=== PATIENT | female | born 1955 | race Caucasian/White ===

== ENCOUNTER 2018-10-05 14:56 | Day surgery (SDC) | payer OTHER ==
[2018-10-05 16:50] LABS: BF Color Yellow; BF RBC Count - Manual 2900 /cumm; Body Fluid Source PLEURAL FLUID; Clarity Hazy (Clear); Tube # EDTA; WBC/NonHematic-Auto 1308 /cumm
[2018-10-05 16:57] LABS: Pleural Fluid, Protein 4.6 g/dL
--- NOTE | 2018-10-05 17:08 | HP ---
CONSULTING PHYSICIAN: Dr. Pino. REASON FOR EVALUATION: Left pleural effusion. HISTORY OF PRESENT ILLNESS: Ms. Barrientos is a pleasant 63-year-old from [place], who has lived in this country for over 20 years. She developed a left upper lobe pneumonia recently. She was treated initially with azithromycin and then with 10 days of Levaquin. She actually feels better, but on followup today, she had an x-ray done, which showed a persistent left upper lobe infiltrate along with a new left pleural effusion, which was confirmed by CT. She was sent over here for a diagnostic and therapeutic left-sided thoracentesis. PAST MEDICAL HISTORY: Remarkable for hyperlipidemia, hypertension, and anxiety. PAST SURGICAL HISTORY: . SOCIAL HISTORY: Nonsmoker. 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 ALLERGIES: MULTIPLE. THESE WERE LISTED ON HER CHART, INCLUDE PENICILLIN, SULFA, TETRACYCLINE, IBUPROFEN, AND CAFFEINE. MEDICATIONS: 1. Metoprolol. 2. Crestor. 3. Coenzyme Q10 when she takes the Crestor. FAMILY MEDICAL HISTORY: Unremarkable for tuberculosis. REVIEW OF SYSTEMS: Twelve-point review of systems is remarkable for some chest pain and cough. PHYSICAL EXAMINATION: VITAL SIGNS: Pulse 110, respirations 18, blood pressure 110/70, respiratory rate 18, and O2 sat 99% on room air. GENERAL: She is awake and alert, in no distress. HEENT: Unremarkable without obvious lesions. NECK: No adenopathy, JVD, or bruits. LUNGS: She has diminished breath sounds in the left base about one-fourth the way up. Right side is clear. CARDIAC: S1 and S2. Slightly tachycardic. No murmur. ABDOMEN: Soft, nontender. EXTREMITIES: No edema. DIAGNOSTIC DATA: I reviewed her CT and chest x-ray from the physician center. She had a small moderate-size left pleural effusion. ASSESSMENT: 1. Left parapneumonic pleural effusion. 2. Pneumonia. PLAN: 1. Diagnostic and therapeutic left thoracentesis. See separate operative note. 2. After the thoracentesis showed parapneumonic fluid, I decided to treat her with 7 more days of Levaquin. This was mainly because she is allergic to just about every other antibiotic class. 3. Follow up in the office in 1 month. Repeat chest x-ray. Job ID: [id number]
[2018-10-05 17:09] LABS: BF Segmented Neutrophils 2 %; Cell Count Non Hematic 45 %; Eosinophils 19 %; Lymphocytes 33 %
--- NOTE | 2018-10-05 17:18 | OP ---
DATE OF PROCEDURE: 10/05/2018 PROCEDURE: Left thoracentesis. PREOPERATIVE DIAGNOSIS: Left pleural effusion. POSTOPERATIVE DIAGNOSIS: Left parapneumonic pleural effusion. ANESTHESIA: 1% lidocaine without epinephrine. DESCRIPTION OF PROCEDURE: Informed consent was obtained from the patient. She understood the risks involved, including bleeding, infection next to lung puncture and agreed to proceed. She was placed in the sitting position. The best entry site was confirmed by ultrasound. Chlorhexidine was used to anesthetize the entry point at the left scapular midline approximately 5th and 6th interspace posteriorly. 1% lidocaine was used to numb the entry site. A Suda-S-Dbezsfsc catheter was inserted in the pleural space. Approximately 700 mL of stephanie/brown pleural fluid was removed and sent for appropriate studies. She tolerated the procedure well. Postoperative x-ray showed resolution of pleural effusion. Job ID: [id number]
--- NOTE | 2018-10-05 17:39 | RAD ---
FRONTAL VIEW CHEST: 10/05/18 INDICATION: Recent thoracentesis. History of pneumonia, pleural effusion. Reference is made to a radiograph from earlier same date. Status post thoracentesis. FINDINGS: There has been interval reduced volume of left pleural fluid status post thoracentesis. There is a sm all volume of pleural based air demonstrated overlying the left chest without a significant postproce dure pneumothorax. Prominent opacity at the left apex does persist. There is mild residual pleural ba sed density at the inferior left chest. No shift of midline mediastinal structures. Osseous structure s are intact. IMPRESSION: Status post left thoracentesis. There is mild pleural air, postprocedural in etiology, without a sign ificant pneumothorax. Prominent left upper lung zone opacity does persist. Mild residual left basilar density. POS: [facility]
== END 2018-10-05 16:15 | disposition home or self-care (01) ==
LOC: SDC/OP 14:56
PROVIDERS: ATTEND Internal Medicine Critical Care Medicine
PROC: 0W9B3ZZ Drainage of Left Pleural Cavity, Percutaneous Approach (ICD-10-PCS; principal; 2018-10-05)
DX: C80.1 Malignant (primary) neoplasm, unspecified (principal); J91.0 Malignant pleural effusion; J18.9 Pneumonia, unspecified organism; E78.5 Hyperlipidemia, unspecified; F41.9 Anxiety disorder, unspecified; I10 Essential (primary) hypertension; Z79.899 Other long term (current) drug therapy; Z88.0 Allergy status to penicillin; Z88.1 Allergy status to other antibiotic agents; Z88.2 Allergy status to sulfonamides; Z88.8 Allergy status to other drugs, medicaments and biological substances
CPT/HCPCS: 32554; 71045; 82150; 82945; 83615; 83986; 84157; 84478; 85060; 87070; 87116; 87205; 87206; 88112; 88305; 88341; 88342; 89051

== ENCOUNTER 2018-10-17 08:00 | Outpatient (CLI) | payer OTHER ==
[2018-10-17] MEDS ORDERED: Iopamidol 370 76% 100 ML VIAL ONE (10:19)
--- NOTE | 2018-10-17 10:20 | CT ---
CT CHEST WITH CONTRAST CT ABDOMEN WITH CONTRAST CT PELVIS WITH CONTRAST: Date: 10/17/18 HISTORY: Lung cancer. Staging. COMPARISON: Single radiograph of chest post thoracentesis 10/05/18. No other imaging available for review. FINDINGS: There is a very large left-sided layering pleural effusion. There is abnormal enhancement of the seble etal pleura, some of which is nodular. There is volume loss of the left upper lobe. No definitive mas s is appreciated, although infiltrative mass is suspected in the left suprahilar region. Majority of consolidation in the left upper lobe is felt to be postobstructive pneumonitis. There is abnormal thi ckening of the left upper lobe interstitium, which is concerning for lymphangitic spread of tumor. Th ere is confluence of left cardiophrenic adenopathy and extending along the left heart border and ante rior mediastinum. The largest lymph node measures 12.0 mm in short axis, coronal image 40. There is a lso nodular studding along the left-sided pericardial fat. This is all concerning for tumor involveme nt. No supraclavicular adenopathy. Small right paratracheal lymph nodes measure up to 5.0 mm in short axis. Small 2.0 mm nodule is present in right lower lobe, posterior segment, axial image 52. There i s also a 3.0 mm nodule right lower lobe posterior segment, coronal image 85. There is mild interstitial thickening along the hilum of the right lower lobe, as well as some early alveolar ground-glass suggesting pulmonary edema. No pneumothorax. Clavicles are intact. Sternum and manubrium are intact. Relatively subacute right lateral 6th rib fracture with one-half shaft width displacement. There is a subtle submillimeter hypodensity hepatic segment VII, axial image 63, measuring 7.0 mm, wh ich may reflect a metastatic focus. There are numerous smaller more hypodense foci throughout the avtar er, predominantly in hepatic segments II and VII, as well as V and , which are all sub-3.0 mm and t oo small to characterize. Hypodensity near the falciform ligament, hepatic segment IV-B, may reflect focal fat. Spleen is unremarkable. The adrenal glands are without metastatic foci. The aortoiliac contour is non aneurysmal. No dilated loops of large or small bowel. The appendix is visualized and is normal. No retroperitoneal or periaortic adenopathy in the abdomen or pelvis. Kidneys are unremarkable. No ab normal renal enhancing mass. IMPRESSION: 1. Poorly defined infiltrative type left suprahilar mass, which is not well seen on this CT examinat ion. There is extensive left upper lobe postobstructive pneumonitis, as well as likely lymphangitic s pread of tumor. There is also a very large left layering pleural effusion with abnormal nodular enhan cement of the visceral pleura suggesting metastatic malignant pleural involvement. 2. No right-sided mediastinal or supraclavicular adenopathy appreciated. 3. Abnormal left axillary lymph node, which is retropectoral, measuring 11.0 mm, axial image 15, asy mmetric to the right, may reflect metastatic disease. 4 Single, 7.0 mm, vague hypodensity, hepatic segment VIII, may reflect another focus of metastatic d isease. 5. Confluent left pericardiophrenic adenopathy likely metastatic. 6. Subacute minimally displaced right lateral 6th rib fracture. 7. Single focal area of osteolysis right 6th vertebral body extending to the inferior end plate with likely a subacute pathologic fracture through the inferior end plate. 8. Focal area of osteolysis of the right 11th vertebral body, likely a focal area of osseous metasta tic disease. 9. Innumerable smaller foci of osteolysis which also may reflect early metastatic disease, for examp le, in the T3 vertebral body, axial image 11, and possibly the left posterior 8th rib, axial image 35 . CODE: T POS: [facility]
--- NOTE | 2018-10-17 11:41 | MRI ---
MRI BRAIN WITH AND WITHOUT CONTRAST: 10/17/2018 HISTORY: A 63-year-old female with lung cancer. Evaluate for brain metastasis. C34.12. COMPARISON: None. TECHNIQUE: Multiple sequences obtained in axial, sagittal, and coronal planes; pre and post IV injection of gado linium-based contrast agent: MultiHance 12 mL. FINDINGS: There are tiny, enhancing nodules, on the order of 2 to 4 mm each (all best visualized on the T1 MPR thin-slice axial images, series 10), in the following locations: Two in the right cerebellar hemisphere (image 31 of 192, series 10); left centrum semiovale (image 12 2 of 192); left upper parietal dalton-white junction (135 of 192); right superior frontal gyrus dalton-wh ite junction (138 of 192). The ventricles are normal in size and configuration. No mass effect or midline shift. No extraaxial fluid collection. Punctate focus of hyperintensity on the DWI at the right centrum semiovale, uncer tain whether or not actual restricted diffusion. No other areas of restricted diffusion. No evidenc e of recent intraaxial hemorrhage. IMPRESSION: At least five tiny, intraaxial metastatic lesions. ABDON Rodas POS: [facility]
== END 2018-10-17 08:01 | disposition home or self-care (01) ==
LOC: CT 08:00
PROVIDERS: ATTEND Internal Medicine Hematology & Oncology
DX: C34.12 Malignant neoplasm of upper lobe, left bronchus or lung (principal); R59.0 Localized enlarged lymph nodes; S22.31XA Fracture of one rib, right side, initial encounter for closed fracture; J18.9 Pneumonia, unspecified organism; M89.58 Osteolysis, other site
CPT/HCPCS: 70553; 71260; 74177; Q9967

== ENCOUNTER 2018-10-19 07:37 | Outpatient (CLI) | payer OTHER ==
--- NOTE | 2018-10-19 11:17 | PET ---
RADIONUCLIDE PET SCAN WITH CT ATTENUATION CORRECTION: HISTORY: Left upper lobe lung cancer. Metastatic disease. Initial staging. FINDINGS: Physiologic uptake of radiotracer throughout the enteric system and along each urinary tract. The lar ge left upper lobe mass shows a maximum SUV of 15.1. Along the anterior left costophrenic angle, ther e is thickening of the pleura with maximum SUV of 7.9. Abnormal lymph nodes are as follows: LOCATION MAXIMUM SUV Left supraclavicular 5.0 Left prepectoral 8.5 Right infrahilar 5.2 . Spinal lesions with hypermetabolic activity are as follows: T6 vertebral body 5.2 T10 spinous process 5.0 T11 vertebral body 5.9 Other bony abnormalities are as follows: Right 6th rib 4.1 Right iliac bone 4.9 Left iliac bone 11.2 Right sacrum 6.3 IMPRESSION: Left upper lobe lung cancer with hypermetabolic metastases involving thoracic adenopathy, the spine, and appendicular skeleton as detailed above. POS: [facility]
== END 2018-10-19 07:38 | disposition home or self-care (01) ==
LOC: PET 07:37
PROVIDERS: ATTEND Internal Medicine Hematology & Oncology
DX: C34.12 Malignant neoplasm of upper lobe, left bronchus or lung (principal); R59.0 Localized enlarged lymph nodes
CPT/HCPCS: 78815; A9552

== ENCOUNTER 2018-10-30 13:47 | Outpatient (CLI) | payer OTHER | END 2018-10-30 13:48 | disposition home or self-care (01) | LOC: ULT 13:47 | PROVIDERS: ATTEND Internal Medicine Hematology & Oncology | DX: Z51.11 Encounter for antineoplastic chemotherapy (principal); C34.12 Malignant neoplasm of upper lobe, left bronchus or lung; I08.1 Rheumatic disorders of both mitral and tricuspid valves; J90 Pleural effusion, not elsewhere classified | CPT/HCPCS: 93306 ==

== ENCOUNTER 2018-10-30 15:21 | Outpatient (CLI) | payer OTHER ==
--- NOTE | 2018-10-30 16:08 | RAD ---
CHEST TWO VIEWS: History: Dyspnea. Comparison: CT chest, abdomen, and pelvis 10-17-18 FINDINGS: Large layering left pleural effusion is similar. Left upper lobe mass is similar. Right lung is relat ively clear. IMPRESSION: Similar large layering left pleural effusion and left upper lobe mass. POS: [facility]
== END 2018-10-30 15:22 | disposition home or self-care (01) ==
LOC: RAD 15:21
PROVIDERS: ATTEND Internal Medicine Critical Care Medicine
DX: R06.00 Dyspnea, unspecified (principal); J90 Pleural effusion, not elsewhere classified; R91.8 Other nonspecific abnormal finding of lung field
CPT/HCPCS: 71046

== ENCOUNTER → 2018-10-31 | Day surgery (SDC) | payer OTHER ==
[~2018-10-31] MED LIST: Lidocaine 1% (PF) 30 ML VIAL ONE; Lidocaine 1% PF 5 ML VIAL ONE
--- NOTE | 2018-10-31 09:15 | PDOC.THORA ---
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 Risks of procedure discussed. Left 5th 6th interspace at midscapular line was entry point. Scrubbed with chlorohexedine and draped sterile 1% lidocaine use to numb entry site [id number]-tjbeodph catheter inserted into left pleural space 1700ml of dark pleural fluid removed pt experienced some localized pain at the conclusion of procedure cxr pending
--- NOTE | 2018-10-31 10:55 | RAD ---
PORTABLE UPRIGHT FRONTAL CHEST RADIOGRAPH: Date: 10-31-18 Comparison: 10-30-18 History: Malignant effusion, thoracentesis. FINDINGS: Heart and mediastinal contours are stable. When compared to the 10-30-18 examination the left pleural effusion is much smaller. Small residual left pleural effusion is seen. There is hazy mass like opaci ty overlying the left lung apex suspicious for an underlying mass lesion. IMPRESSION: Small residual left pleural effusion. Focal opacity in left lung apex suspicious for an underlying le ft apical/left upper lobe mass lesion. POS: [facility]
== END ==
LOC: SDC 07:32
PROVIDERS: ATTEND Internal Medicine Critical Care Medicine
PROC: 0W9B30Z Drainage of Left Pleural Cavity with Drainage Device, Percutaneous Approach (ICD-10-PCS; principal; 2018-10-31)
DX: C80.1 Malignant (primary) neoplasm, unspecified (principal); J91.0 Malignant pleural effusion; I10 Essential (primary) hypertension; F41.9 Anxiety disorder, unspecified; E78.5 Hyperlipidemia, unspecified; Z79.899 Other long term (current) drug therapy; Z88.0 Allergy status to penicillin; Z88.2 Allergy status to sulfonamides; Z88.8 Allergy status to other drugs, medicaments and biological substances
CPT/HCPCS: 32554; 71045; J1642; J2001

== ENCOUNTER 2018-11-26 13:02 | Outpatient (CLI) | payer OTHER ==
--- NOTE | 2018-11-26 14:44 | RAD ---
CHEST TWO VIEWS: HISTORY: Dyspnea. COMPARISON: 10/30/2018 FINDINGS: Decreasing left pleural effusion. Healed right rib fractures. Heart size is within normal limits. Minimal left upper lobe volume loss with some increased opacity changes overlying the left hilum. IMPRESSION: Decreasing left pleural effusion. Persistent opacity changes in the left suprahilar region with some associated volume loss. Stable appearing right chest. POS: [facility]
== END 2018-11-26 13:03 | disposition home or self-care (01) ==
LOC: RAD 13:02
PROVIDERS: ATTEND Internal Medicine Critical Care Medicine
DX: R06.00 Dyspnea, unspecified (principal); J90 Pleural effusion, not elsewhere classified; R91.8 Other nonspecific abnormal finding of lung field
CPT/HCPCS: 71046

== ENCOUNTER 2019-01-07 14:33 | Outpatient (CLI) | payer OTHER ==
--- NOTE | 2019-01-07 15:59 | RAD ---
TWO VIEW CHEST: Indications: Dyspnea. Comparison: 11-26-18 FINDINGS: Large left effusion with left compressive atelectasis again noted. Lateral view indicates effusion ex tends anteriorly and may be partially loculated. Right lung appears clear. IMPRESSION: Enlarging left pleural effusion when compared to prior study. POS: [facility]
== END 2019-01-07 14:34 | disposition home or self-care (01) ==
LOC: RAD 14:33
PROVIDERS: ATTEND Internal Medicine Critical Care Medicine
DX: R06.00 Dyspnea, unspecified (principal); J90 Pleural effusion, not elsewhere classified
CPT/HCPCS: 71046

== ENCOUNTER 2019-01-18 08:55 | Outpatient (CLI) | payer OTHER ==
--- NOTE | 2019-01-18 11:33 | MRI ---
MRI BRAIN WITH AND WITHOUT CONTRAST: 01/18/2019 HISTORY: Lung cancer. Evaluate for metastatic disease. COMPARISON: 10/17/2018 TECHNIQUE: Multiplanar, multisequence MR imaging of the brain obtained with and without contrast. FINDINGS: The diffusion-weighted imaging demonstrates no evidence for acute infarction. There are foci of subcentimeter increased T2 and FLAIR signal within the periventricular white matter , suggesting mild small vessel disease. The axial gradient echo imaging demonstrates no evidence for intracranial hemorrhage. There is mild mucosal thickening involving the posterior ethmoid air cells bilaterally and the left m axillary sinus. Arterial flow voids at the axial level of the skull base appear grossly unremarkable on the T2 weighted imaging. The prior examination, performed on 06/16/2019, demonstrated multiple tiny enhancing intraaxial lesio ns, suspicious for intracranial metastatic disease. On today's examination, these lesions are no vazquez alex visualized. Prior imaging demonstrated two subcentimeter enhancing lesions within the left cereb ellar hemisphere, with mild associated vasogenic edema, no longer present. The prior exam also demon strated bilateral supratentorial lesions, which included one lesion in the right frontal lobe, near t he vertex and two supratentorial lesions on the left, one in the deep white matter and one in the pos terior frontal parietal region, also all of which are not visualized on this exam. No discrete enhancing lesion is identified within the brain parenchyma. Of note, thin-section post-contrast imaging was not performed on this examination, slightly limiting detailed assessment. IMPRESSION: Multiple small intraaxial lesions identified on the prior examination are no longer visualized, evide nce of an interval response to treatment. On this examination, no intraaxial lesion is appreciated. On continued follow-up imaging, it is recommended that a thin-section, post-contrast sequence be per formed. CODE T
[2019-01-18] MEDS ORDERED: Gadobenate Dimeglumine 529 MG/1 ML (20ML VIAL) ONE (11:56)
== END 2019-01-18 08:56 | disposition home or self-care (01) ==
LOC: BICMRI 08:55
PROVIDERS: ATTEND Internal Medicine Hematology & Oncology
DX: C34.12 Malignant neoplasm of upper lobe, left bronchus or lung (principal); C79.31 Secondary malignant neoplasm of brain; G93.9 Disorder of brain, unspecified
CPT/HCPCS: 70553; 82565; A9577

== ENCOUNTER 2019-01-22 11:33 | Outpatient (CLI) | payer OTHER ==
--- NOTE | 2019-01-22 14:30 | PET ---
EXAM: PET/CT HISTORY: Lung cancer. Status post chemoradiation therapy. Exam requested for restaging. TECHNIQUE: PET scanning with CT attenuation correction was performed from the base of the brain to the proximal thighs following the intravenous administration of 13 millicuries [id number]. COMPARISON: 10/19/2018 CORRELATION: None FINDINGS: There is residual FDG activity in the left upper lobe mass noted on the previous scan with a current SUV of 3.7 (previously 15.1).There has been interval resolution of the bone and lymph mj lesions noted on the previous study. Abnormal uptake in the left pleura has also resolved. No mj hypermetabolism is seen in the neck, mediastinum, miranda, axillae, abdomen or pelvis. No hyper metabolic right lung nodules are seen. No hypermetabolic liver, adrenal or skeletal lesions are seen. There is physiologic activity in the GI and tracts and the visualized portions of the brain. The CT scan used for attenuation correction demonstrates a large left pleural effusion, also seen on the previous study. IMPRESSION: Partial/incomplete response to therapy with significant interval improvement since 10/19/2018.
== END 2019-01-22 11:34 | disposition home or self-care (01) ==
LOC: PET 11:33
PROVIDERS: ATTEND Internal Medicine Hematology & Oncology
DX: C34.12 Malignant neoplasm of upper lobe, left bronchus or lung (principal)
CPT/HCPCS: 78815; A9552

== ENCOUNTER 2019-02-12 07:58 | Day surgery (SDC) | payer OTHER ==
[2019-02-11 11:59] VITALS: BMI 22.4
--- NOTE | 2019-02-12 10:20 | OP ---
DATE OF PROCEDURE: 02/12/2019 PROCEDURE PERFORMED: Left thoracentesis. PREOPERATIVE DIAGNOSIS: Left pleural effusion. POSTOPERATIVE DIAGNOSIS: Left pleural effusion. ANESTHESIA: 1% lidocaine without epinephrine. DESCRIPTION OF PROCEDURE: Informed consent was obtained prior to the procedure. The patient has had this procedure 2 times previously, and she understood the risks involved including bleeding, infection, and accidental lung puncture. She agreed to proceed. Ultrasound was used to locate the biggest pocket in the left hemothorax. This was approximately fifth and sixth interspace at the left lateral scapular line. The entry site was cleansed with chlorhexidine and draped sterilely. The entry site was anesthetized with 1% lidocaine without epinephrine. A Uhbx-K-Nxzjqjlf catheter was placed in the pleural space and approximately 1300 mL of dark yellow pleural fluid was removed and sent for appropriate cytology. She tolerated the procedure well. Postoperative x-ray is pending. Job ID: [id number]
--- NOTE | 2019-02-12 11:02 | RAD ---
RADIOGRAPH CHEST 1 VIEW: Date: 02/12/19 Time: 0926 hours HISTORY: 63-year-old female status post thoracentesis. COMPARISON: 01/07/19. FINDINGS: The left pleural effusion has mildly decreased in volume. It currently opacifies the lower third of t he left lung. No pneumothorax is visualized. There is diffuse haziness of the left upper lobe, probab ly due to posterior layering of the pleural effusion. The right lung is relatively clear. No cardiome elizabeth or pulmonary edema. IMPRESSION: 1. Status post left thoracentesis with mild interval decrease in volume of the now moderate size lef t pleural effusion. 2. No pneumothorax. JN [] POS: [facility]
== END 2019-02-12 09:38 | disposition home or self-care (01) ==
LOC: SDC/OP 07:58
PROVIDERS: ATTEND Internal Medicine Critical Care Medicine
PROC: 0W9B3ZZ Drainage of Left Pleural Cavity, Percutaneous Approach (ICD-10-PCS; principal; 2019-02-12)
DX: C34.12 Malignant neoplasm of upper lobe, left bronchus or lung (principal); J91.0 Malignant pleural effusion; Z88.0 Allergy status to penicillin; Z88.6 Allergy status to analgesic agent; Z88.2 Allergy status to sulfonamides; Z88.1 Allergy status to other antibiotic agents; Z88.8 Allergy status to other drugs, medicaments and biological substances; Z79.899 Other long term (current) drug therapy
CPT/HCPCS: 32554; 71045; 88112; 88305; J1642

== ENCOUNTER 2019-03-11 13:04 | Inpatient (IN) | payer OTHER ==
[2019-03-11 13:53] LABS: #Basophils 0.1 thou/uL (0.0-0.2); #Lymphocytes 0.5 thou/uL (1.20-3.40); #Monocytes 0.4 thou/uL (0.11-0.59); #Neutrophils 3.2 thou/uL (1.40-6.50); %Basophils 1.4 % (0.0-1.0); %Eosinophils 0.8 % (0.0-10.0); %Lymphocytes 11.8 % (21.0-51.0); %Monocytes 8.7 % (0.0-10.0); %Neutrophils 77.3 % (42.0-75.0); Hemoglobin 14.6 g/dL (12.0-16.0); Mean Corpuscular HGB CONC 33.6 g/dL (32.0-36.0); Mean Corpuscular Hemoglobin 29.4 pg (27.0-31.0); Mean Corpuscular Volume 87.5 fL (78.0-98.0); Mean Platelet Volume 8.6 fL (7.4-10.4); Platelet Count 92 thou/uL (130-400); RBC Distribution Width 12.4 % (11.5-14.5); Red Blood Cell (RBC) Count 4.96 mill/uL (4.20-5.40); White Blood Cell (WBC) Count 4.1 thou/uL (4.8-10.8)
--- NOTE | 2019-03-11 14:04 | RAD ---
EXAM: Chest PA and lateral: HISTORY: Fever. Pleural effusion. COMPARISON: 03/11/2019 at 11:50 AM, 02/12/2019 FINDINGS: Persistent opacification the left hemithorax due to pleural effusion with adjacent parenchymal change s. Hyperinflation of the right lung. Suboptimal evaluation the cardiac silhouette is a left sided opacity. No definite pneumothorax. IMPRESSION: 1. Left-sided pleural effusion with adjacent parenchymal changes. Increased opacification when compar ed to the radiograph from February 12, 2019 2. Suspected cardiomegaly.
[2019-03-11 14:06] LABS: ALT (SGPT) 13 U/L (8-55); AST (SGOT) 19 U/L (5-34); Albumin 4.2 g/dL (3.4-4.8); Alkaline Phosphatase 56 U/L (40-150); Anion Gap 10 mmol/L (10-20); BUN (Urea Nitrogen) 7 mg/dL (9.8-20.1); Bilirubin, Total 0.4 mg/dL (0.2-1.2); Calc. Creatinine Clearance 0 mL/min (70-130); Calcium 9.1 mg/dL (7.8-10.44); Carbon Dioxide 28 mmol/L (23-31); Chloride 103 mmol/L (98-107); Estimated GFR-MDRD 76; Globulin 3.2 g/dL (2.4-3.5); Glucose 99 mg/dL (80-115); Potassium 3.7 mmol/L (3.5-5.1); Protein, Total 7.4 g/dL (6.0-8.3); Sodium 137 mmol/L (136-145)
[2019-03-11 14:07] LABS: Platelet Morphology Comment Appears Decreased; RBC Morphology Normal
[2019-03-11] MEDS ORDERED: ALPRAZolam 0.25 MG TAB ONE (17:01)
[2019-03-11] MEDS ORDERED: HYDROcodone/Acetaminophen 5/325 mg Tablet PO PRN (17:36)
[2019-03-11] MEDS ORDERED: Acetaminophen 325 MG TAB PO PRN (17:36)
[2019-03-11] MEDS ORDERED: ALPRAZolam 0.25 MG TAB PO PRN (17:39)
[2019-03-11] MEDS ORDERED: Cefepime 2 GM in Sodium Chloride 0.9% 100 ML IVPB SCH (18:00)
--- NOTE | 2019-03-11 18:52 | HP ---
PRIMARY CARE PROVIDER: Dr. Pino. CHIEF COMPLAINT: Fever. HISTORY OF PRESENT ILLNESS: This is a 63-year-old female with history of lung cancer, diagnosed in September 2018, on Tagrisso; palpitations; and anxiety, who presents to the emergency room with a complaint of 3 days of fevers, chills, and night sweats. The patient reports that she has been taking Tylenol, having multiple episodes of these symptoms per day. She called her bottler's office both on the day of onset as well as today with recommendation to go to the emergency room, however, instead was seen by her primary care provider. A chest x-ray was performed, which shows recurrence of a known left pleural effusion. The patient has undergone thoracentesis for this 3 times with the last time on February [address] Mijares, her bottler. In addition to the above, she reports some nausea and vomiting last night. Denies any chest pain or difficulty breathing. She does note some shortness of breath with exertion that is new. The patient was directed to the emergency room with left pleural effusion. There, she received normal saline 1 L and hospitalist called for admission. ALLERGIES: 1. ANTIHISTAMINES. 2. CAFFEINE. 3. IBUPROFEN AND NSAIDS. 4. PENICILLIN. 5. SULFA. 6. TETRACYCLINES. CURRENT MEDICATIONS: Reviewed with the patient. 1. Metoprolol succinate 25 mg at bedtime. 2. Alprazolam 0.25 mg at bedtime. 3. Clonazepam 0.25 mg daily as needed. 4. Tagrisso 80 mg once daily in the morning. 5. Rosuvastatin, which she stopped in October. PAST MEDICAL HISTORY: 1. Left sided pleural effusions - requiring thoracentesis x 3 2. Lung cancer diagnosed in September 2018, managed by Dr. Hood on Tagrisso. 3. Anxiety. 4. Palpitations, managed by Dr. Castle. PAST SURGICAL HISTORY: . SOCIAL HISTORY: Remote history of tobacco use. The patient lives with her , who is her surrogate decision maker, and she is a full code. FAMILY HISTORY: Significant for hypertension. REVIEW OF SYSTEMS: Notable for diarrhea 3 episodes once a day, shortness of breath with exertion, nausea and vomiting last night. She denies any change in her vision. Denies any change in urine. All remaining review of systems are reviewed and negative. PHYSICAL EXAMINATION: VITAL SIGNS: Temperature 98.1; blood pressure 139/91; pulse 104, of note, it was 134 on arrival; respirations are 20; sats 96% on room air. GENERAL: Await, alert, responsive. She is anxious-appearing, but not in apparent distress. HEENT: Her pupils are equal and round. No scleral icterus. Oral mucosa is pink, appears striae. NECK: Supple, nontender. LYMPHATICS: No palpable cervical or supraclavicular lymphadenopathy. LUNGS: She has decreased breath sounds throughout the left side, with vocal fremitus. Lungs on the right side are clear to auscultation. HEART: Normal S1 and S2. Regular rate and rhythm. No significant murmur. ABDOMEN: Soft with present bowel sounds. Nontender, nondistended. EXTREMITIES: No clubbing, cyanosis, or edema. SKIN: She has some ecchymosis around the anterior aspect of her left ankle as small area. NEUROLOGIC: No motor deficits noted. PSYCH: The patient is euthymic, anxious appearing, linear, logical, goal- directed, thought process. VASCULAR: 2+ dorsalis pedis pulses. LABORATORY DATA: Labs reviewed today. CBC; 4.1, 14.6, 43.3 with a platelet count of 92. Chemistry; 137, 3.7, 103, 28, 7, 0.77, 99. LFTs are normal. EKG is personally reviewed, sinus rhythm with a rate of 105, normal axis, normal intervals, no ST changes. Chest x-ray is personally reviewed. Left-sided pleural effusion with adjacent parenchymal changes, increased opacification when compared to February, suspected cardiomegaly. IMPRESSION: 1. Reaccumulated left pleural effusion. 2. Lung cancer, on Tagrisso. 3. Thrombocytopenia, mild. 4. Leukopenia, mild. 5. Anxiety, not optimally controlled, likely secondary to situation. 6. Palpitations, on beta-prabhu therapy. 7. Diarrhea. PLAN: 1. Admission to the hospital. 2. Cardiovascular Surgery has been consulted for placement of a PleurX catheter, which is planned for tomorrow. 3. Consult Pulmonology. 4. We will start broad-spectrum antibiotics given the fevers, chills, night sweats, and thoracentesis less than a month ago. We will use cefepime for Pseudomonas coverage. 5. Continuing the alprazolam. We will change it to every 4 hours as needed. 6. Continuing her beta-prabhu. 7. She will continue her Tagrisso. 8. Recheck her CBC in the morning, specifically looking at her white blood cells and platelets. 9. We will monitor her renal function. 10. Blood cultures obtained in the emergency room, we will follow those. 11. Anticipated length of stay will be based on the findings from the procedure tomorrow, determination of antibiotics or any other needs. 12. We will check a C diff test given the reported diarrhea. 13. DVT prophylaxis. The patient is ambulatory. 14. GI prophylaxis, not indicated. 15. Code status is full. Surrogate decision maker is her . 16. Reviewed the plan of care with patient, her , and son. No questions or further needs at the end of evaluation. 17. The patient is at high risk given age, comorbidities, and current presentation. Job ID: [id number] [id number]
[2019-03-11] MEDS ORDERED: Ondansetron PF 4 MG/2 ML Vial IVP PRN (20:17)
[2019-03-11] MEDS ORDERED: Ondansetron ODT 4 MG TAB SL PRN (20:17)
[2019-03-11] MEDS: Cefepime 2 GM in Sodium Chloride 0.9% 100 ML IVPB SCH (20:51)
[2019-03-11 23:29] VITALS: BMI 22.1
--- NOTE | 2019-03-11 23:37 | CON ---
DATE OF CONSULTATION: 03/11/2019 HISTORY OF PRESENT ILLNESS: Ms. 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 She has had three thoracenteses performed in the last 6 months with large volumes taken each time. She is undergoing immunotherapy and has had good response from her primary tumor, but continues to have recurrent malignant pleural effusions. She re-presented today with a large pleural effusion and shortness of breath. I have been asked by Dr. Case to place a left PleurX catheter. Currently, she is resting in the emergency department. She is very nervous and requesting to have her Xanax as soon as possible. PAST MEDICAL HISTORY: 1. Hypertension. 2. Anxiety. 3. Dyslipidemia. 4. Stage IV adenocarcinoma of the left upper lobe. PAST SURGICAL HISTORY: . CURRENT MEDICATIONS: Noted. ALLERGIES: NUMEROUS ANTIBIOTIC ALLERGIES INCLUDING PENICILLIN, SULFA, TETRACYCLINE, AND CAFFEINE USE. REVIEW OF SYSTEMS: A 10-point review of systems is performed and is negative except as above. PHYSICAL EXAMINATION: GENERAL: This is a very nervous, thin woman, resting in the emergency department. VITAL SIGNS: Heart rate is 124, blood pressure is 140/72. HEENT: Sclerae nonicteric. NECK: Supple. There is no adenopathy, that is palpable in her supraclavicular fossa or her neck. LUNGS: Clear on the right. She has diminished breath sounds throughout on the left. HEART: Rhythm is regular with no murmurs. ABDOMEN: Scaphoid, soft, and nontender. EXTREMITIES: No edema. Chest x-ray, I have reviewed her chest x-ray series. She does re-expand her lung post thoracentesis. She has a chest x-ray from today showing approximately 3/4 of her pleural cavity filled with fluid. ASSESSMENT AND PLAN: This is an unfortunate 63-year-old woman, who has malignant left pleural effusion which has been recurrent post thoracentesis on multiple occasions. I have been asked to place a left PleurX catheter. We discussed drainage at home, and she does feel she can perform this. We will plan for a catheter placement tomorrow inside. Job ID: [id number]
[2019-03-12 06:04] LABS: #Eosinphils 0.1 thou/uL (0.0-0.7); #Lymphocytes 0.9 thou/uL (1.20-3.40); #Monocytes 0.6 thou/uL (0.11-0.59); #Neutrophils 2.9 thou/uL (1.40-6.50); %Basophils 0.9 % (0.0-1.0); %Eosinophils 1.1 % (0.0-10.0); %Lymphocytes 19.3 % (21.0-51.0); %Monocytes 13.7 % (0.0-10.0); Hemoglobin 12.5 g/dL (12.0-16.0); Mean Corpuscular HGB CONC 33.7 g/dL (32.0-36.0); Mean Corpuscular Hemoglobin 29.5 pg (27.0-31.0); Mean Corpuscular Volume 87.6 fL (78.0-98.0); Mean Platelet Volume 8.8 fL (7.4-10.4); Platelet Count 93 thou/uL (130-400); RBC Distribution Width 12.3 % (11.5-14.5); Red Blood Cell (RBC) Count 4.24 mill/uL (4.20-5.40); White Blood Cell (WBC) Count 4.4 thou/uL (4.8-10.8)
[2019-03-12 06:25] LABS: Anion Gap 9 mmol/L (10-20); BUN (Urea Nitrogen) 7 mg/dL (9.8-20.1); Calc. Creatinine Clearance 71 mL/min (70-130); Calcium 7.7 mg/dL (7.8-10.44); Carbon Dioxide 24 mmol/L (23-31); Chloride 110 mmol/L (98-107); Estimated GFR-MDRD 80; Glucose 88 mg/dL (80-115); Potassium 3.8 mmol/L (3.5-5.1); Sodium 139 mmol/L (136-145)
[2019-03-12] MEDS: TAGRISSO PO SCH (07:55)
[2019-03-12] MEDS: Cefepime 2 GM in Sodium Chloride 0.9% 100 ML IVPB SCH ×2 (07:56→20:33)
[2019-03-12] MEDS ORDERED: Lidocaine 1% (PF) 30 ML VIAL ONE (11:50)
[2019-03-12] MEDS ORDERED: Levofloxacin 500 mg/D5W 100 ml Premix Bag ONE (12:14)
[2019-03-12] MEDS ORDERED: Midazolam HCl 2 mg/2 ml Vial ONE (12:19)
[2019-03-12] MEDS ORDERED: Fentanyl 100 MCG/2 ML VIAL ONE ×2 (12:19→13:11)
[2019-03-12] MEDS ORDERED: Promethazine HCl 25 MG/ML VIAL IM PRN (13:01)
[2019-03-12] MEDS ORDERED: Ondansetron HCl/PF 4 MG/2 ML Vial IVP PRN (13:01)
[2019-03-12] MEDS ORDERED: Promethazine HCl 25 MG/ML VIAL SLOW IVP PRN (13:01)
--- NOTE | 2019-03-12 15:21 | OP ---
DATE OF PROCEDURE: 03/12/2019 PREOPERATIVE DIAGNOSIS: Recurrent malignant left pleural effusion. POSTOPERATIVE DIAGNOSIS: Recurrent malignant left pleural effusion. PROCEDURE: Left PleurX catheter placement. ANESTHESIA: 1% lidocaine for local with IV sedation, provided by Augustine Sawyer CRNA. DESCRIPTION OF PROCEDURE: The patient was brought to the operating room, placed supine position on the operating table. Appropriate central line was placed. IV sedation was begun. Left chest wall was prepped and draped in the usual sterile fashion. Skin and subcutaneous tissues were anesthetized with 1% lidocaine. Percutaneous access to left thorax was obtained and a guidewire placed. The catheter was tunneled from the midclavicular line around the catheter access site. Dilators were then placed. Catheter was placed through this peel-away dilator and the peel-away removed. Skin incisions were closed with 0 Vicryl suture. The catheter was aspirated, with 1700 mL of fluid was aspirated. We terminated the aspiration prior to completion of the complete aspiration. The patient was sent back to the recovery room in stable condition. Job ID: [id number]
--- NOTE | 2019-03-12 16:09 | CON ---
DATE OF CONSULTATION: HISTORY OF PRESENT ILLNESS: Ms. Barrientos is a pleasant 63-year-old female with non-small cell lung cancer (adenocarcinoma) involves her pleural space. She has had several thoracenteses this year. She said she received Zometa on Monday and was told she may have flu-like symptoms over the weekend. She said she did feel like she had the flu over the weekend. These symptoms have resolved and she denies shortness of breath at this time. PAST MEDICAL HISTORY: Remarkable for and anxiety. SOCIAL HISTORY: She is a nonsmoker, but was to a heavy smoker. She is nondrinker. ALLERGIES: SHE HAS ALLERGIES REPORTED TO ANTIHISTAMINES, IBUPROFEN, CAFFEINE, NONSTEROIDALS, PENICILLIN, SULFA, AND TETRACYCLINE. FAMILY HISTORY: Negative for lung disease in early age. REVIEW OF SYSTEMS: Ten-point review of systems otherwise negative. PHYSICAL EXAMINATION: VITAL SIGNS: She is 5 feet 3 inches and 125 pounds. She is afebrile, heart rate is 110, respiratory rate is 18, oximetry is 91% to 95% on room air, and blood pressure 116/67. HEENT: Pupils are equal. Sclerae are anicteric. Extraocular movements are full. NECK: Supple. No lymphadenopathy. LUNGS: Remarkable for decreased breath sounds at the left base. HEART: Regular rhythm. No S3. ABDOMEN: Soft and nontender. EXTREMITIES: Without clubbing, cyanosis, or edema. NEURO: Grossly nonfocal. IMPRESSION AND PLAN: Recurrent pleural effusion, likely related to malignancy. At first, I was thinking maybe we could get away with not doing a tunneled catheter, but given that she has a recurrent need for pleural drainage. I think a tunneled catheter is the best option. Dr. Shore was gracious enough to see her last night before he left and has her on scheduled today. She had considerable chest discomfort with placement of a thoracentesis drain last time with Dr. Mijares, so we probably will try to avoid draining her completely dry with placement of a catheter. Job ID: [id number]
--- NOTE | 2019-03-12 17:51 | PDOC.PN ---
- Subjective Encounter Start Date: 03/12/19 (f/u pleural effusion) Encounter Start Time: 16:30 Subjective: Pt is s/p pleural catheter today with Dr. Shore. She reports feeling -: better, is concerned about some bleeding around the catheter. -: denies any chest pain/n/v - Objective Resuscitation Status - Order Detail: 03/11/19 17:36 Resuscitation Status Routine Resuscitation Status: FULL: Full Resuscitation Vital Signs & Weight: Vital Signs (12 hours) Temp Pulse Resp BP BP Pulse Ox 03/12/19 16:00 97.8 F 109 H 20 110/64 92 L 03/12/19 13:45 98.8 F 103 H 20 111/62 95 03/12/19 11:50 98.1 F 111 H 18 126/87 94 L 03/12/19 08:00 97.7 F 110 H 18 116/67 95 Weight Admit Weight 125 lb Weight 125 lb Result Diagrams: 03/12/19 05:29 03/12/19 05:29 Phys Exam - Physical Examination Constitutional: NAD Respiratory: no wheezing, no rhonchi left basilar rales and decreased breath sounds at base Cardiovascular: RRR, no significant murmur small amount of bright red blood on bandage Gastrointestinal: soft, non-tender, no distention, positive bowel sounds Musculoskeletal: no edema Neurological: non-focal, moves all 4 limbs Deviation from normal: anxious appearing, although improved Dx/Plan (1) Pleural effusion Code(s): J90 - PLEURAL EFFUSION, NOT ELSEWHERE CLASSIFIED Status: Acute (2) History of lung cancer Code(s): Z85.118 - PERSONAL HISTORY OF MALIGNANT NEOPLASM OF BRONCHUS AND LUNG Status: Chronic (3) Anxiety Code(s): F41.9 - ANXIETY DISORDER, UNSPECIFIED Status: Chronic (4) Palpitations Code(s): R00.2 - PALPITATIONS Status: Chronic (5) Thrombocytopenia Code(s): D69.6 - THROMBOCYTOPENIA, UNSPECIFIED Status: Acute (6) Leukopenia Code(s): D72.819 - DECREASED WHITE BLOOD CELL COUNT, UNSPECIFIED Status: Acute - Plan * Appreciate [facility] consult and placement of catheter - will need home instructions on care of this * Appreciate Pulmonology consult - will need close f/u * * will continue Cefepime for now - blood cultures are negative * continue home meds as ordered * monitor the amount of blood on bandage - currently a minimal amount * will need f/u with Dr. Hood of Oncology regarding leukopenia/thrombocytopenia * * dvt prophy - ambulatory * gi prophy - not indicated * code status full * * anticipate home tomorrow - will d/w Pulmonology in AM.
[2019-03-12] MEDS ORDERED: Prevnar 13-Val Conj/PF 0.5 ML SYRINGE IM ONE (21:00)
[2019-03-13] MEDS: TAGRISSO PO SCH (08:56)
[2019-03-13] MEDS: Cefepime 2 GM in Sodium Chloride 0.9% 100 ML IVPB SCH (08:56)
[2019-03-13 11:41] VITALS: BP 106/65; TEMP 97.5
--- NOTE | 2019-03-13 14:20 | DIS ---
DATE OF ADMISSION: 03/11/2019 DATE OF DISCHARGE: 03/13/2019 CONSULTANTS: 1. Dr. Case of Pulmonology. 2. Dr. Shore's of Cardiovascular Surgery. PROCEDURES PERFORMED: PleurX catheter placement on 03/12/2019 MEDICATIONS: Reconciled at discharge and are unchanged compared to admission. 1. Alprazolam 0.25 mg at bedtime. 2. Metoprolol succinate 25 mg at bedtime. 3. Tagrisso 80 mg daily. 4. Clonazepam 0.25 mg daily as needed. FINAL DIAGNOSIS: Left pleural effusion, now status post PleurX catheter placement and removal of 1.7 L of fluid. SECONDARY DIAGNOSES: 1. Lung cancer, on Tagrisso. 2. Thrombocytopenia, mild. 3. Leukopenia, mild. 4. Anxiety. 5. Palpitations. 6. Diarrhea. HISTORY OF PRESENT ILLNESS: Ms. Barrientos is a 63-year-old female with the above medical problems, who complained of 3 days of fevers, chills, and night sweats. She was evaluated by her primary care provider on day of admission with a repeat chest x-ray, which shows recurrence of unknown left pleural effusion. The patient was admitted for treatment. HOSPITAL COURSE: The patient was started on cefepime due to a low white blood cell count, currently on Tagrisso, and with reported fevers, chills, and night sweats. She tolerated cefepime and has received a total of 4 doses. She has been afebrile here. She underwent PleurX catheter with Dr. Shore yesterday and tolerated this well with removal of 1.7 L of fluid. She will be discharged with close followup with both Dr. Mijares, her biodiesel engine specialist; and Dr. Hood, her oncologist for further treatment and evaluation. She has been afebrile here and will be discharged without further antibiotics. The patient has been tachycardic here, reports a long history of palpitations for which she is followed by a adult day care worker. She was kept on her usual medications for this of metoprolol as well as on her usual medications for anxiety. The patient overall doing well, oxygen saturation levels are above 90% both at rest and with exertion and she meets criteria for discharge to home. PHYSICAL EXAMINATION: VITAL SIGNS: Temperature 97.5; pulse 109; respirations 18; saturations 96% on 2 L, but 94% on room air; and blood pressure 106/65. GENERAL: Awake, alert, responsive, in no apparent distress, although anxious-appearing. LUNGS: Some basilar rales on the left side, improved air movement compared to admission. HEART: Normal S1 and S2. Tachycardic. Regular rate and rhythm. No significant murmurs. ABDOMEN: Soft. Present bowel sounds. EXTREMITIES: No edema. LEMA FINDINGS AND TEST RESULTS: CBC; WBC 4.4, hemoglobin 12.5, hematocrit 37.1, platelets 93 with 19% lymphocytes, 65% neutrophils. Chemistry; sodium 139, potassium 3.8, chloride 110, bicarbonate 24, BUN 7, creatinine 0.74, and glucose 88 with a calcium of 7.7, although 9.1 on day of admission. Blood cultures x2 are negative so far. Chest x-ray shows a left-sided pleural effusion with adjacent parenchymal changes and increased opacification compared to February 12 and suspected cardiomegaly. Operative report on March 12 shows a left PleurX catheter placement with removal of 1.7 L of fluid. DIET: Regular. ACTIVITY: No limitations. I reviewed with patient this hospitalization, the importance of followup and return for care precautions. She demonstrates understanding. FOLLOWUP: 1. Follow up is with Dr. Hood as scheduled for March 18. 2. Follow up with Dr. Mijares as scheduled for March 18. CODE STATUS: Full. DISCHARGE DISPOSITION: Home. TIME SPENT: Total time coordinating discharge is 30 minutes. Job ID: [id number] MTDD
--- NOTE | 2019-03-15 09:29 | PRG ---
DATE OF SERVICE: 03/13/2019 SUBJECTIVE: Eufemia Barrientos was evaluated today. She is anticipating going home. Dr. Shore taught them how to drain her pleural space, but she gets significant pleural pain with 700 mL or less of drainage. She is concerned about this. I have explained to her that the only reason she has to drain at home is if she is getting short of breath. This seemed to be reassuring for her. She has an appointment I believe with Dr. Mijares on the night. We discussed cleansing her wound with chest tubes insertion. I believe I answered all of her questions to her satisfaction. I also met with her and answered all of his questions. She will follow up with the oncologist and also follow up in our office within the next couple of weeks. Job ID: [id number]
== END 2019-03-13 16:03 | disposition home or self-care (01) | DRG 181 ==
LOC: ERS 13:04 → ERHOLD 16:10 → T4-B 19:16
PROVIDERS: ADMIT Family Medicine; ATTEND Family Medicine
PROC: 0W9B30Z Drainage of Left Pleural Cavity with Drainage Device, Percutaneous Approach (ICD-10-PCS; principal; 2019-03-12)
DX: C34.12 Malignant neoplasm of upper lobe, left bronchus or lung (principal); J91.0 Malignant pleural effusion; I10 Essential (primary) hypertension; F41.9 Anxiety disorder, unspecified; E78.5 Hyperlipidemia, unspecified; D72.819 Decreased white blood cell count, unspecified; D69.6 Thrombocytopenia, unspecified; R19.7 Diarrhea, unspecified; R00.2 Palpitations; Z88.1 Allergy status to other antibiotic agents; Z88.0 Allergy status to penicillin; Z88.2 Allergy status to sulfonamides; Z88.5 Allergy status to narcotic agent; Z88.6 Allergy status to analgesic agent; Z79.899 Other long term (current) drug therapy
CPT/HCPCS: 36415; 71046; 80048; 80053; 83605; 85025; 87040; 93005; 96360; C1729; J0692; J1956; J2001; J2250; J3010; J3490

== ENCOUNTER 2019-03-19 13:40 | Outpatient (CLI) | payer OTHER ==
--- NOTE | 2019-03-19 14:05 | RAD ---
RADIOGRAPH CHEST 2 VIEW: DATE: 03/19/2019 TIME: 1:48 PM HISTORY: 63-year-old female with dyspnea COMPARISON: 03/11/2019 FINDINGS: There is a new left-sided chest tube that enters the left lateral base, then travels medially and sup eriorly along the posterior or medial pleural surface to the midthoracic spine level. No pneumothorax. Volume of left pleural effusion has significantly decreased, and is now small. Dense co nsolidation at left base abutting the pleural effusion. No right pleural effusion or pulmonary edema. No cardiomegaly or pneumothorax. IMPRESSION: 1) drainage of most of the volume of the previously large left pleural effusion upon placement of lef t-sided thoracostomy catheter. 2) no pneumothorax. 3) small residual left pleural effusion and adjacent consolidation at left lower lobe base.
== END 2019-03-19 13:41 | disposition home or self-care (01) ==
LOC: RAD 13:40
PROVIDERS: ATTEND Internal Medicine Critical Care Medicine
DX: R06.00 Dyspnea, unspecified (principal); J90 Pleural effusion, not elsewhere classified
CPT/HCPCS: 71046

== ENCOUNTER 2019-04-22 11:36 | Outpatient (CLI) | payer OTHER ==
--- NOTE | 2019-04-22 13:22 | MRI ---
Exam: Brain MRI with and without contrast HISTORY: Lung cancer with brain metastases. COMPARISON: 01/18/2019, 10/17/2018 FINDINGS: Gradient echo sequence: Stable hemosiderin deposition in the left middle cerebral peduncle Calvarium: Appropriate T1 marrow signal intensity Midline brain parenchyma: Unremarkable Cerebrum:No parenchymal mass, mass effect or midline shift. Brain volume, age-appropriate. Cortical g ray-white matter differentiation is preserved Ventricles: No evidence of hydrocephalus. Sinuses and mastoid air cells: Adequate aeration Diffusion: Central arterial flow is maintained. Absent restricted diffusion. Postcontrast images: No pathologic enhancement of the brain parenchyma. IMPRESSION: 1. No pathologic enhancement the brain parenchyma. No evidence of parenchymal metastases.
[2019-04-22] MEDS ORDERED: Gadobenate Dimeglumine 529 MG/1 ML (20ML VIAL) ONE (16:33)
== END 2019-04-22 11:37 | disposition home or self-care (01) ==
LOC: MRI 11:36
PROVIDERS: ATTEND Internal Medicine Hematology & Oncology
DX: C34.12 Malignant neoplasm of upper lobe, left bronchus or lung (principal); C71.9 Malignant neoplasm of brain, unspecified; Z51.11 Encounter for antineoplastic chemotherapy; F06.4 Anxiety disorder due to known physiological condition; C79.51 Secondary malignant neoplasm of bone; Z79.899 Other long term (current) drug therapy; J90 Pleural effusion, not elsewhere classified; I34.0 Nonrheumatic mitral (valve) insufficiency
CPT/HCPCS: 70553; 93306; A9577

== ENCOUNTER 2019-04-25 07:36 | Outpatient (CLI) | payer OTHER ==
--- NOTE | 2019-04-25 10:25 | PET ---
Nuclear medicine FDG PET/CT: (Positron emission tomography and computed tomography) DATE: 04/25/2019 HISTORY: 63-year-old female with lung cancer. Restaging. Evaluate response to chemotherapy. COMPARISON: 01/22/2019. TECHNIQUE: IV injection of F-18 fluorodeoxyglucose (FDG) dose: 13 mCi. PET scan and attenuation correction CT performed from skull base to proximal thighs. FINDINGS: SUV (standard uptake values) numbers given are maximum SUVs. QCLR used. On the attenuation correction CT, there is a new finding of diffuse interstitial densities (groundgla ss densities) throughout the right upper lobe and right lower lobe. This is nonspecific, but one possibility is lymphangitic carcinomatosis. Typical SUV is 3.1-3.4. Infiltrative mass involving anterior segment of left upper lobe has become larger. The medial upper a spect of this has SUV 6.5. There is a component slightly more laterally located in the upper portion of the left upper lobe that has SUV of 8.7. Anterior inferior component of this mass has SUV of 5.0. No mediastinal lymphadenopathy. Significant interval decrease in volume of left pleural effusion upon placement of left sided chest t ube. Moderate-sized left pleural effusion remains. A small region of soft tissue density which could either represent atelectasis, pneumonia, or neoplasm, has SUV of 5.2. Several other left inferi or pleural small foci of increased uptake, including one located far anteriorly and inferiorly with SUV of 4.7. New small subcapsular lateral right liver dome right lobe lesion with SUV 5.5. No other liver lesions . No other suspicious areas within abdominal cavity or pelvic cavity. No hypermetabolic suspicious osseous lesions. IMPRESSION: 1) interval worsening of left upper lobe lung cancer with increase in size and increase in SUVs. 2) new unilateral right pulmonary interstitial infiltrates. Nonspecific, but this does raise the poss ibility of lymphangitic carcinomatosis of right lung. 3) new finding of several small foci of increased uptake in the lower portion of the left pleural spa ce suspicious for pleural metastases. 4) interval decrease in volume of left pleural effusion upon placement of left-sided chest tube. 5) new small right lobe liver metastatic focus.
== END 2019-04-25 07:37 | disposition home or self-care (01) ==
LOC: PET 07:36
PROVIDERS: ATTEND Internal Medicine Hematology & Oncology
DX: C34.12 Malignant neoplasm of upper lobe, left bronchus or lung (principal); J90 Pleural effusion, not elsewhere classified; C78.7 Secondary malignant neoplasm of liver and intrahepatic bile duct
CPT/HCPCS: 78815; A9552

== ENCOUNTER 2019-05-01 13:00 | Outpatient (CLI) | payer OTHER ==
--- NOTE | 2019-05-01 15:13 | RAD ---
PA AND LATERAL CHEST X-RAY: 05/01/19 HISTORY: Dyspnea. COMPARISON: 03/19/19. FINDINGS: A tunneled left pleural catheter is again seen and unchanged in position with the tip of the catheter overlying the medial aspect of the left hemithorax. Small left pleural effusion and atelectasis is n oted. There is increase in perihilar interstitial densities, greater on the left. Increased density i n the left lung apex and lateral left chest is again present. Cardiac silhouette is stable in size. N o other interval change when compared to the prior exam. IMPRESSION: 1. Increased interstitial opacities bilaterally. Interstitial densities could be related to pulm onary edema or infectious process. Lymphangitic spread of tumor is a differential consideration. 2. Tunneled left pleural catheter remains in place. There is increased density at the left lung base probably related to left pleural effusion and associated atelectasis. There is also mild increas ed density seen at the left lung apex and along the left lateral chest which is a stable finding and may be related to pleural based metastatic disease. POS: CET
== END 2019-05-01 13:01 | disposition home or self-care (01) ==
LOC: RAD 13:00
PROVIDERS: ATTEND Internal Medicine Critical Care Medicine
DX: R06.00 Dyspnea, unspecified (principal); R91.8 Other nonspecific abnormal finding of lung field
CPT/HCPCS: 71046

== ENCOUNTER 2019-05-21 12:59 | Outpatient (CLI) | payer OTHER ==
--- NOTE | 2019-05-21 13:41 | RAD ---
TWO VIEWS CHEST: 05/21/19 INDICATION: Dyspnea. Reference made to 05/01/19 exam. FINDINGS: Redemonstration of pleural and parenchymal density of the left lung as well as diffuse interstitial p rominence of the right lung. Left side catheter traverses the medial aspect of the left chest, simila r appearing. IMPRESSION: Stable chest with diffuse bilateral pulmonary parenchymal opacities, as well as prominent pleural bas ed density occupying the left hemithorax. POS: TPC
== END 2019-05-21 13:00 | disposition home or self-care (01) ==
LOC: RAD 12:59
PROVIDERS: ATTEND Internal Medicine Critical Care Medicine
DX: R06.00 Dyspnea, unspecified (principal); R91.8 Other nonspecific abnormal finding of lung field
CPT/HCPCS: 71046

== ENCOUNTER 2019-06-01 11:41 | Inpatient (IN) | payer OTHER ==
[2019-06-01 12:38] LABS: #Basophils 0.1 thou/uL (0.0-0.2); #Eosinphils 0.1 thou/uL (0.0-0.7); #Lymphocytes 0.5 thou/uL (1.20-3.40); #Monocytes 1.1 thou/uL (0.11-0.59); #Neutrophils 12.9 thou/uL (1.40-6.50); %Basophils 0.4 % (0.0-1.0); %Eosinophils 0.9 % (0.0-10.0); %Lymphocytes 3.4 % (21.0-51.0); %Monocytes 7.7 % (0.0-10.0); %Neutrophils 87.6 % (42.0-75.0); Hemoglobin 14.8 g/dL (12.0-16.0); Mean Corpuscular HGB CONC 33.8 g/dL (32.0-36.0); Mean Corpuscular Hemoglobin 28.1 pg (27.0-31.0); Mean Corpuscular Volume 83.1 fL (78.0-98.0); Mean Platelet Volume 9.8 fL (7.4-10.4); Platelet Count 103 thou/uL (130-400); RBC Distribution Width 12.2 % (11.5-14.5); Red Blood Cell (RBC) Count 5.25 mill/uL (4.20-5.40); White Blood Cell (WBC) Count 14.7 thou/uL (4.8-10.8)
[2019-06-01] MEDS ORDERED: ISOVUE-370 76%-LOCM 1 ML ONE (12:47)
[2019-06-01 12:59] LABS: Bilirubin Negative (Negative); Blood, Urine Trace (Negative); Clarity Clear (Clear); Glucose, Urine (Dipstick) Normal (Negative); Leukocyte 500 Leu/uL (Negative); Nitrite Negative (Negative); Protein, Urine (Dipstick) Negative (Neg-Trace); Renal Epithelial 0-3 HPF (None Seen); Squamous Epithelial None Seen HPF (0-3); Transitional Epithelial 0-3 HPF (None Seen); Urobilinogen Normal mg/dL (Less than 2)
[2019-06-01 13:00] LABS: ALT (SGPT) 12 U/L (8-55); AST (SGOT) 15 U/L (5-34); Albumin 3.4 g/dL (3.4-4.8); Alkaline Phosphatase 64 U/L (40-150); Anion Gap 12 mmol/L (10-20); BUN (Urea Nitrogen) 11 mg/dL (9.8-20.1); Bilirubin, Total 0.3 mg/dL (0.2-1.2); Calc. Creatinine Clearance 0 mL/min (70-130); Calcium 8.5 mg/dL (7.8-10.44); Carbon Dioxide 24 mmol/L (23-31); Chloride 98 mmol/L (98-107); Estimated GFR-MDRD 74; Globulin 2.8 g/dL (2.4-3.5); Glucose 110 mg/dL (80-115); Potassium 3.5 mmol/L (3.5-5.1); Protein, Total 6.2 g/dL (6.0-8.3); Sodium 130 mmol/L (136-145)
--- NOTE | 2019-06-01 13:03 | RAD ---
EXAM: XR Chest 1 View Portable PROVIDED CLINICAL HISTORY: Dyspnea COMPARISON: 05/21/2019 FINDINGS: Cardiac and mediastinal silhouette is unchanged in appearance. Left basilar pleural-parenchymal opaci ty with associated left-sided chest tube demonstrate no significant change with respect to the prior study. The right lung remains clear. No evidence for pneumothorax. IMPRESSION: Stable radiographic appearance of the chest.
[2019-06-01 13:09] LABS: Bacteria/HPF None Seen HPF (None Seen)
[2019-06-01 13:36] LABS: CKMB 1.5 ng/mL (0-6.6)
[2019-06-01] MEDS ORDERED: Aspirin Chewable 81 MG TAB ONE (13:41)
--- NOTE | 2019-06-01 13:42 | CT ---
EXAM: CT pulmonary angiogram with IV contrast and three-dimensional reconstructions PROVIDED CLINICAL HISTORY: Shortness of breath COMPARISON: PET/CT scan 04/25/2019 FINDINGS: There is complete consolidation of the left upper lobe. There is pleural fluid involving the left hem ithorax, some of which is loculated at the medial and anterior aspects of the left upper chest. There is a left-sided chest tube with its tip at the medial aspect of the posterior left chest in the midportion. The degree of left upper lobe consolidation/opacification has increased with respect to the PET/CT. Widespread groundglass opacity involves the right middle and right upper lobes in a peribronchial vas cular distribution. This appears similar to somewhat more conspicuous than on prior. There is septal thickening involving these portions of the lung. There is persistent nodular/irregular consoli dation present at the left lung base, appearing similar to the prior examination. There is no evidence for central or segmental pulmonary embolus. The visualized portions of the upper abdomen demonstrate a hypodense mass involving the lateral aspect of the right hepatic lobe measuring at least 2.5 cm. The osseous structures demonstrate no concerning lytic or blastic lesions. Schmorl's node formation involves the inferior aspect of T5. IMPRESSION: 1. No evidence for central or segmental pulmonary embolus. 2. Near total consolidation of the left upper lobe. 3. Interval increase in degree of pleural fluid on the left, some of which is loculated at the left l ivan apex. 4. Persistent groundglass opacity and interstitial thickening involving the right lung that may refle ct infectious, inflammatory or neoplastic etiologies. 5. Persistent irregular nodularity at the left lung base suspicious for malignancy. 6. Right hepatic lobe mass.
[2019-06-01 16:10] LABS: Troponin I 0.545 ng/mL (< 0.028)
[2019-06-01 17:17] LABS: Troponin I 0.625 ng/mL (< 0.028)
[2019-06-01] MEDS ORDERED: Enoxaparin Sodium 60 MG/0.6 ML SYRINGE ONE (17:19)
[2019-06-01 18:10] VITALS: BMI 19.7
[2019-06-01] MEDS ORDERED: Acetaminophen 650 MG Suppository PR PRN (22:24)
[2019-06-01] MEDS ORDERED: Ondansetron PF 4 MG/2 ML Vial IVP PRN (22:24)
[2019-06-01] MEDS ORDERED: Acetaminophen 325 MG TAB PO PRN (22:24)
[2019-06-01] MEDS ORDERED: Ondansetron ODT 4 MG TAB PO PRN (22:24)
[2019-06-02] MEDS ORDERED: clonazePAM 0.5 MG TAB PO PRN (02:30)
[2019-06-02] MEDS: Vancomycin HCl 750 MG in Sodium Chloride 0.9% 250 ML 250 ML IVPB SCH ×2 (02:58→16:32)
--- NOTE | 2019-06-02 03:52 | HP ---
PRIMARY CARE DOCTOR: Dr. Pino. CODE STATUS: Full code. TIME OF EVALUATION: 10 p.m. CHIEF COMPLAINT: Shortness of breath. HISTORY OF PRESENT ILLNESS: A 64 years old female patient with past medical history of lung cancer. The patient follows with Dr. Hood. The patient has recently got a chest tube for malignant pleural effusion, presented to the hospital after having fever, shortness of breath. The symptoms have been present for the past 3 to 5 days with no clear triggers, no alleviating factors. Symptoms were moderate. Saturation was in the 87 while walking at home. She never wear oxygen at home. REVIEW OF SYSTEMS: All systems reviewed were negative except for the findings mentioned in the HPI. PAST MEDICAL HISTORY: Includes mitral valve abnormalities, hyperlipidemia, hypertension, malignancy of the left upper lobe, pleural effusion. PAST SURGICAL HISTORY: . PSYCHIATRIC HISTORY: Anxiety. SOCIAL HISTORY: No alcohol, no drugs. She is a former tobacco user, smoked cigarettes, quit 30 years ago. Lives at home with family. FAMILY HISTORY: Father of an acute [place]. Mother had no significant medical history. KNOWN ALLERGIES: Antihistamine, alkylamine, caffeine, ibuprofen, NSAIDs, penicillin, sulfa, tetracyclines. REPORTED MEDICATIONS: 1. Metoprolol. 2. Alprazolam. 3. Clonazepam. 4. Levofloxacin. PHYSICAL EXAMINATION: VITAL SIGNS: On presentation, blood pressure 106/69 with heart rate 122, respiratory rate was 26, temperature 98.2, pain was 0/10, oxygen saturation was 89 on room air. GENERAL APPEARANCE: The patient is alert, oriented, not in acute distress. HEENT: Eyes, normal conjunctivae. Moist oral mucosa. Anicteric. No JVD. RESPIRATORY: Bilateral air entry. The patient has bilateral rales, mostly on the left side. No wheezing. CARDIOVASCULAR: Normal rate, regular rhythm. No murmurs. No gallop. No edema. ABDOMEN: Soft. Normal bowel sounds. MUSCULOSKELETAL: Baseline range of motion and strength. SKIN: Warm and intact. No pallor. No rash. No redness. Capillary refill seems to be intact. NEURO: No evidence of any new focal weakness. Cranial nerves seems to be intact. PSYCH: The patient is in good mood. No anxiety. Optimal judgment. IMAGING STUDIES: CT chest was done. No evidence for central segmental pulmonary embolism, near total consolidation of left upper lobe, interval increase in the area of pleural fluid of the left, some of which is loculated at the left lung apex, persistent ground-glass opacity, and interstitial thickening involving the right lung that may reflect infectious inflammatory or neoplastic etiology versus irregular nodularities of the left lung base suspicious for malignancy, right neoplastic lobe mass. LABORATORY DATA: Reviewed. The patient has a white count 14.7, hemoglobin 14.8, platelet count 103. Chemistry; sodium 130, potassium 3.5, chloride 98, carbon dioxide 24, anion gap 12, BUN 11, creatinine 0.79, GFR 74, glucose 110, lactic acid 2.1, calcium 9.5, total bilirubin 0.3, AST 15, ALT 12, alkaline phosphatase 64. Troponin 0.49, 0.54, and 0.62. Beta-natriuretic peptide is 74.9. Serum total protein 6.2, albumin 3.4, globulin 2.8, albumin to globulin ratio is 1.2. Urine was done and was positive with white count 11 to 20. ASSESSMENT AND PLAN: The patient will be placed in the hospital with following medical problems: 1. Left upper lobe pneumonia. This is likely secondary to postobstructive pneumonia due to underlying cancer. The patient will be placed on meropenem, vancomycin given the severity of illness. We will follow cultures. We will adjust treatment as needed. 2. Sepsis. The patient has elevated white count, tachycardia with organ dysfunction including respiratory failure due to source of pneumonia. The patient will receive antibiotics, IV fluids. 3. Hyponatremia with sodium 130, this is mild, no need for any acute intervention at this point. We will monitor and treat accordingly. 4. [id number] myocardial infarction, likely type 2. The patient has troponin in the range of 0.4, 0.5. This is likely secondary to underlying sepsis. We will treat underlying condition. 5. Pleural effusion. The patient has chest tube being placed before, the patient has some pocket of fluids, concern for empyema. The patient is being followed with Cardiovascular Surgery, could be a good idea to get them on board and see if there is anything else that needs to be done. 6. Hyperlipidemia. Low-cholesterol diet is advised. Reconcile home medications. 7. Controlled hypertension. Reconcile home medications. Adjust treatment as needed. 8. History of malignancy. The patient follows with Dr. Hood. This can be followed as outpatient once infection is resolved. 9. Acute hypoxic respiratory failure, likely secondary to pneumonia. We will treat underlying condition. We will continue to give oxygen support. 10. Deep venous thrombosis prophylaxis. Job ID: [id number]
[2019-06-02 03:53] LABS: #Basophils 0.1 thou/uL (0.0-0.2); #Eosinphils 0.4 thou/uL (0.0-0.7); #Lymphocytes 0.7 thou/uL (1.20-3.40); #Monocytes 1.2 thou/uL (0.11-0.59); #Neutrophils 10.6 thou/uL (1.40-6.50); %Basophils 0.5 % (0.0-1.0); %Eosinophils 2.8 % (0.0-10.0); %Lymphocytes 5.1 % (21.0-51.0); %Monocytes 9.2 % (0.0-10.0); %Neutrophils 82.4 % (42.0-75.0); Hemoglobin 13.7 g/dL (12.0-16.0); Mean Corpuscular HGB CONC 33.4 g/dL (32.0-36.0); Mean Corpuscular Hemoglobin 28.6 pg (27.0-31.0); Mean Corpuscular Volume 85.5 fL (78.0-98.0); Mean Platelet Volume 9.6 fL (7.4-10.4); Platelet Count 114 thou/uL (130-400); RBC Distribution Width 12.1 % (11.5-14.5); Red Blood Cell (RBC) Count 4.79 mill/uL (4.20-5.40); White Blood Cell (WBC) Count 12.8 thou/uL (4.8-10.8)
[2019-06-02 04:14] LABS: Anion Gap 12 mmol/L (10-20); BUN (Urea Nitrogen) 9 mg/dL (9.8-20.1); Calc. Creatinine Clearance 72 mL/min (70-130); Carbon Dioxide 26 mmol/L (23-31); Chloride 103 mmol/L (98-107); Estimated GFR-MDRD 83; Glucose 94 mg/dL (80-115); Potassium 3.9 mmol/L (3.5-5.1); Sodium 137 mmol/L (136-145)
[2019-06-02] MEDS: Meropenem 500 MG in Sodium Chloride 0.9% 100 ML IVPB SCH ×3 (06:17→23:11)
[2019-06-02] MEDS ORDERED: Metoprolol Tartrate 25 MG TAB PO SCH (08:00)
--- NOTE | 2019-06-02 08:36 | CON ---
DATE OF CONSULTATION: HISTORY OF PRESENT ILLNESS: This is a 64-year-old female with a diagnosis of metastatic adenocarcinoma of the left lung. She had required thoracentesis on a number of occasions over the past 6 months and then ultimately had a PleurX catheter placed about 2 months ago. She states she drains it every other day and typically gets about 400 to 450 mL. She noticed after a needle biopsy about 1 month ago that the fluid became slightly more bloody. She has been undergoing some sort of therapy with Dr. Hood. She was admitted with anxiety and dyspnea. Fevers have been reported, although not documented while in the hospital. CT scan showed a consolidated left upper lobe with some pleural fluid at the apex and PleurX catheter at the base of the chest. Her white count is 12,800. Troponin is showing slight elevation. Her vital signs are significant for a resting tachycardia. Her blood pressure has been 120 to 130. Her initial EKG showed some no significant ST-T wave changes. She denies any chest pain to me. She does complain of palpitations, and said that she did not get her metoprolol or Xanax last night. PHYSICAL EXAMINATION: GENERAL: On examination, she is sitting up in bed, leaning forward. She does not appear to be particularly dyspneic, but she is anxious. LUNGS: She actually has bilateral breath sounds posteriorly. CHEST: Her chest shows no cellulitis around her catheter site or tunnel. CARDIAC: Tachycardia. ABDOMEN: Soft and nontender. EXTREMITIES: No edema. PLAN: At this time, we will resume her every other day PleurX catheter drainages, and she will arrange to bring some of her bottles in from home. I have ordered her a dose of metoprolol and Xanax for this morning. Job ID: [id number]
[2019-06-02] MEDS: ALPRAZolam 0.25 MG TAB PO PRN ×2 (08:41→18:52)
[2019-06-02] MEDS: Enoxaparin Sodium 40 MG/0.4 ML SYRINGE SC SCH (08:42)
[2019-06-02] MEDS ORDERED: Ivabradine 5 MG TAB PO SCH (09:00)
--- NOTE | 2019-06-02 09:29 | PDOC.HOSPP ---
- Subjective Encounter Date: 06/02/19 Encounter Time: 09:26 Subjective: 64 y/o female with metastatic lung cancer associated with neoplastic pleural effusion s/p pleurx catheter placement admitted with worsening SOB and fever associated with chest tightness. CTA chest done to rule out PE showed left upper lobe consolidation as well as worsening loculated effusion as well as left base masses and right hepatic mass. Feeling better. no fever since admission. - Objective Vital Signs & Weight: Vital Signs (12 hours) Temp Pulse Resp BP Pulse Ox 06/02/19 08:33 98.2 F 120 H 18 122/73 96 Weight Weight 122 lb Result Diagrams: 06/02/19 03:14 06/02/19 03:14 Hospitalist ROS - Medication Medications: Active Medications Generic Name Dose Route Start Last Admin Trade Name Freq PRN Reason Stop Dose Admin Alprazolam 0.25 mg 06/02/19 07:52 06/02/19 08:41 Xanax PO 0.25 mg TIDPRN PRN Administration Anxiety Enoxaparin Sodium 40 mg 06/02/19 09:00 06/02/19 08:42 Lovenox SC 40 mg 0900 FARAZ Administration Meropenem 500 mg/ Sodium 100 mls @ 200 mls/hr 06/02/19 06:00 06/02/19 06:17 Chloride IVPB 100 mls Q8HR FARAZ Administration Vancomycin HCl 750 mg/ Sodium 250 mls @ 250 mls/hr 06/02/19 02:00 06/02/19 02 :58 Chloride IVPB 250 mls 0200,1400 FARAZ Administration Ivabradine 5 mg 06/02/19 09:00 06/02/19 08:41 Corlanor PO 5 mg DAILY FARAZ Administration Metoprolol Tartrate 25 mg 06/02/19 08:00 06/02/19 08:42 Lopressor PO 06/02/19 10:00 25 mg NOW FARAZ Administration Sodium Chloride 10 ml 06/02/19 09:00 06/02/19 08:43 Flush - Normal Saline IVF 10 ml Q12HR FARAZ Administration - Exam General Appearance: awake alert Eye: anicteric sclera ENT: normocephalic atraumatic Neck: supple, symmetric, no JVD Heart: RRR Heart - other findings: tachycardic Respiratory: no wheezes, no ronchi Respiratory - other findings: decreased air entry left base. Some transmitted sound noted also Gastrointestinal: soft, non-tender, non-distended, normal bowel sounds Extremities: no cyanosis, no edema Neurological: cranial nerve grossly intact, no focal deficits Psychiatric: normal affect, A&O x 3 Hosp A/P (1) Sepsis Code(s): A41.9 - SEPSIS, UNSPECIFIED ORGANISM Status: Acute (2) Left upper lobe pneumonia Code(s): J18.1 - LOBAR PNEUMONIA, UNSPECIFIED ORGANISM Status: Acute (3) Type [address] elevation Code(s): I21.A1 - MYOCARDIAL INFARCTION TYPE 2 Status: Acute (4) Malignant pleural effusion Code(s): J91.0 - MALIGNANT PLEURAL EFFUSION Status: Acute (5) Metastatic lung cancer (metastasis from lung to other site) Code(s): C34.90 - MALIGNANT NEOPLASM OF UNSP PART OF UNSP BRONCHUS OR LUNG Status: Acute (6) Liver mass Code(s): R16.0 - HEPATOMEGALY, NOT ELSEWHERE CLASSIFIED Status: Acute (7) Tachycardia Code(s): R00.0 - TACHYCARDIA, UNSPECIFIED Status: Acute (8) Elevated troponin Code(s): R74.8 - ABNORMAL LEVELS OF OTHER SERUM ENZYMES Status: Acute (9) Acute hyponatremia Code(s): E87.1 - HYPO-OSMOLALITY AND HYPONATREMIA Status: Acute (10) Moderate protein-calorie malnutrition Code(s): E44.0 - MODERATE PROTEIN-CALORIE MALNUTRITION Status: Acute - Plan Add Levaquin to Vanc and meropenem. Consult cardiology and oncology Start oral supplement Continue supportive care and other treatments. Follow CBC and telemetry
[2019-06-02] MEDS: OSIMERTINIB MESYLATE 80 MG PO SCH (09:47)
[2019-06-02 10:29] LABS: Critical Call Chem Troponin I RESULT DECREASING; Troponin I 0.573 ng/mL (< 0.028)
--- NOTE | 2019-06-02 11:45 | CON ---
DATE OF CONSULTATION: REASON FOR CONSULT: Stage 4 lung cancer. HISTORY OF PRESENT ILLNESS: Ms. Barrientos is a pleasant 64-year-old female, who was diagnosed with stage 4 adenocarcinoma of the left upper lobe. 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 She has been on Tagrisso for several months. She first showed excellent response, but unfortunately progressed in April on the PET scan. She underwent a new biopsy late April, which once again was adenocarcinoma. We currently await [facility] testing for other treatment options. She has had a PleurX catheter sometime now and has been draining every other week. She recently developed increasing shortness of breath and presented to the emergency room for further evaluation. Her CT angiogram showed widespread ground-glass opacities of the right middle and right upper lobes. She had a consolidation of the left upper lobe. There was an increase in the pleural fluid. Dr. Lynne was consulted and is managing the PleurX catheter drainage. She has been started on antibiotics and on O2. PAST MEDICAL HISTORY: 1. Stage 4 adenocarcinoma of the lung. 2. Hypertension. 3. Hyperlipidemia. 4. Severe anxiety. 5. Depression. 6. History of skin cancer. PAST SURGICAL HISTORY: 1. . 2. Multiple thoracentesis. 3. PleurX cath placement. ALLERGIES: TO ANTI-INFLAMMATORIES, ANTIHISTAMINES, PENICILLIN, SULFA, AND TETRACYCLINE. HOME MEDICATIONS: 1. Tagrisso 80 mg daily. 2. Clonazepam 0.25 mg p.r.n. 3. Xanax daily. 4. Toprol 25 mg daily. FAMILY HISTORY: Breast cancer. SOCIAL HISTORY: . She has 2 children. Lives with her spouse. Seven and half pack history of smoking. No illicit drug use. REVIEW OF SYSTEMS: A 10-point review of systems is negative except for noted in HPI. PHYSICAL EXAMINATION: VITAL SIGNS: Temperature is 98.2, pulse is 120, respiratory rate 18, and BP is 122/76. She is 96% on 2 L. GENERAL: Well-developed and well-nourished female, in no acute distress. HEENT: Normocephalic and atraumatic. CV: Regular rate and rhythm. She is tachycardic. RESPIRATORY: She has diminished breath sounds in the left lower lung. ABDOMEN: Soft and nontender. Bowel sounds are positive. EXTREMITIES: No clubbing, cyanosis, or edema. SKIN: No rash. HEMATOLOGIC: No petechiae or purpura. NEUROLOGIC: Nonfocal. PSYCH: She is tearful and crying. PERTINENT LABS AND X-RAYS: Current WBCs 12.8, hemoglobin 13.7, hematocrit 41.0, and platelet count is a 114,000. She has 82% neutrophils and 5% lymphocytes. Sodium is 137, potassium is 3.9, chloride is 103, CO2 is 26, BUN is 9, creatinine is 0.71, lactic acid is 1, calcium is 8, bilirubin is 0.3, AST is 15, ALT is 12, and alkaline phosphatase is 69. Troponin is elevated. Serum total protein 6.2, albumin 3.4, and globulin 2.8. Urine is negative. Radiology per HPI. ASSESSMENT: 1. Stage 4 metastatic adenocarcinoma of the lung. 2. Malignant pleural effusion with PleurX catheter placement. 3. Tachycardia with elevated troponin. DISCUSSION: The patient has been admitted for further treatment. She has been given Lovenox and antibiotics. She has been tachycardic as long as she has been on treatment. It is likely that her bump in troponin is ischemic from current symptoms. Would continue to grow so while she is an inpatient and she can be discharged once her symptoms have improved. Thank you for the consult. Job ID: [id number]
[2019-06-02] MEDS: Ivabradine 5 MG TAB PO SCH (20:38)
[2019-06-02] MEDS: ALPRAZolam 0.25 MG TAB PO SCH (21:09)
--- NOTE | 2019-06-02 22:18 | CON ---
DATE OF CONSULTATION: 06/02/2019 INDICATION FOR CONSULTATION: This is a 64-year-old female who has stage IV lung cancer, who presented with increasing shortness of breath and cough. Her cardiac enzymes are slightly elevated, which would indicate a type 2 myocardial infarction. However, this most likely is demand ischemia associated with the tachycardia that the patient has been experiencing and also due to her coughing and her most likely demand ischemia associated with the cough and shortness of breath due to her underlying lung cancer and possible overlying pneumonia. At this time, she denies any chest pain. Cardiac enzymes showed a non-determinate level. Her troponin I on admission was 0.49, has increased up to 0.62 and has now trended back down to 0.573. Her MB was negative and her EKG shows no evidence of ischemia. She did have a stress test in March of 2018, which was unremarkable, had no evidence of ischemia. She also had an echocardiogram performed recently in the office on February of 2019, which showed ejection fraction of 60% to 65% with only mild mitral and tricuspid valve regurgitation and a very small insignificant pericardial effusion with a large pleural effusion. At this time, she has been having some fever. She is cold, complaining of some chills in the room. Her white count is 12.8. I believe she has also been seen by Oncology since being here already. There has been a consultation. PAST MEDICAL HISTORY: Significant for lung cancer, which is stage IV adenocarcinoma. She has a history of hypertension, history of anxiety, hyperlipidemia, depression, and some skin cancer. She has had multiple thoracenteses in the past due to her chronic pleural effusions. She has had Pleurx catheter placement. She has had a in the past. ALLERGIES: SHE IS ALLERGIC TO ANTIHISTAMINES, ANTIINFLAMMATORY MEDICATIONS, SULFA, PENICILLIN, AND TETRACYCLINE. MEDICATIONS: Prior to admission, her medications include Tagrisso 80 mg daily, clonazepam, Xanax, Toprol-XL 25 mg a day. She had also recently been placed on Corlanor. She was seen in the office recently and was noted to have a hypotension and was started on the medication, which seem to control her heart rate better and last time in the office, her blood pressure was 86/50 with a heart rate of 120 and the Corlanor was initiated at 5 mg q.a.m. I believe she received that dose this morning, but now seems her heart rate is increasing again. FAMILY HISTORY: Positive for breast cancer. SOCIAL HISTORY: She is . She has 2 children. She is actually from [place]. Her is a [place]. She has smoked in the past. No illicit drug use. REVIEW OF SYSTEMS: Her 12-point review of systems is unremarkable except that noted in the history of present illness. PHYSICAL EXAMINATION: GENERAL: Reveals a well-developed, well-nourished female, somewhat anxious. VITAL SIGNS: She had O2 saturation of 96% on 2 L. Heart rate still in the 120s and shows a sinus tachycardia. She is afebrile. Blood pressure is 122/76. HEENT: Unremarkable. CHEST: Decreased breath sounds at the bases, but otherwise is unremarkable. CARDIOVASCULAR: Reveals a mild tachycardia, but regular rate and rhythm, but no gross murmurs. ABDOMEN: Soft and nontender. Positive bowel sounds are present. EXTREMITIES: Showed no clubbing, cyanosis, or edema. Pedal pulses are slightly decreased, but are present. SKIN: Warm and dry. No significant rashes. NEUROLOGIC: She appears to be nonfocal and again she is very anxious. LABORATORY DATA: Noted for hemoglobin 13.7, platelet count 114,000. She has a slight left shift with 82% neutrophils. Potassium is 3.9, BUN was 9, creatinine 0.71. Her AST is 15 with an ALT of 12, alkaline phosphatase is 69. Troponin I as noted above. She has continued pleural effusions. Her chest x-ray was performed yesterday, which shows no significant change. The right lung remains relatively clear without any evidence of pneumothorax, but she does have some left pleural opacity noted with the left side. She had almost complete consolidation of the left upper lobe on the CT scan and she also was noted on CT scan to have a right hepatic lobe mass and she does have a left pleural effusion. At this time, we will be more than happy to continue to follow the patient with you. IMPRESSION: 1. Tachycardia associated with her shortness of breath and coughing and underlying lung cancer. 2. Type 2 myocardial infarction, most likely associated with demand ischemia. Would continue her beta blockers as tolerated. Continue her Corlanor. At this time, the patient otherwise from a cardiac standpoint appears to be stable. No ST-segment changes to indicate ischemia and stress testing a year ago was unremarkable and the patient denies chest pain. Job ID: [id number]
[2019-06-02] MEDS: Sodium Chloride 0.9% 1,000 ML IV SCH (23:11)
[2019-06-03] MEDS: Vancomycin HCl 750 MG in Sodium Chloride 0.9% 250 ML 250 ML IVPB SCH ×3 (04:51→18:25)
[2019-06-03 05:23] LABS: Vancomycin, Trough 7.8 ug/mL
[2019-06-03 05:25] LABS: #Eosinphils 0.2 thou/uL (0.0-0.7); #Lymphocytes 0.6 thou/uL (1.20-3.40); #Neutrophils 13.3 thou/uL (1.40-6.50); %Basophils 0.2 % (0.0-1.0); %Eosinophils 1.4 % (0.0-10.0); %Lymphocytes 4.2 % (21.0-51.0); %Monocytes 6.7 % (0.0-10.0); %Neutrophils 87.5 % (42.0-75.0); Hemoglobin 13.2 g/dL (12.0-16.0); Mean Corpuscular HGB CONC 33.9 g/dL (32.0-36.0); Mean Corpuscular Hemoglobin 28.7 pg (27.0-31.0); Mean Corpuscular Volume 84.7 fL (78.0-98.0); Mean Platelet Volume 9.6 fL (7.4-10.4); Platelet Count 127 thou/uL (130-400); RBC Distribution Width 12.1 % (11.5-14.5); Red Blood Cell (RBC) Count 4.59 mill/uL (4.20-5.40); White Blood Cell (WBC) Count 15.2 thou/uL (4.8-10.8)
[2019-06-03] MEDS: OSIMERTINIB MESYLATE 80 MG PO SCH (09:03)
[2019-06-03] MEDS: Ivabradine 5 MG TAB PO SCH ×2 (09:04→20:08)
[2019-06-03] MEDS: Meropenem 500 MG in Sodium Chloride 0.9% 100 ML IVPB SCH ×2 (09:04→17:31)
[2019-06-03] MEDS: Enoxaparin Sodium 40 MG/0.4 ML SYRINGE SC SCH (09:04)
[2019-06-03] MEDS: ALPRAZolam 0.25 MG TAB PO PRN (09:04)
[2019-06-03] MEDS: Sodium Chloride 0.9% 1,000 ML IV SCH (10:39)
--- NOTE | 2019-06-03 11:33 | PDOC.HOSPP ---
- Subjective Encounter Date: 06/03/19 Encounter Time: 11:31 Subjective: some diarrhea, still sob - Objective Vital Signs & Weight: Vital Signs (12 hours) Temp Pulse Resp BP Pulse Ox 06/03/19 07:57 98 F 105 H 30 H 127/67 92 L 06/03/19 04:00 98.6 F 104 H 22 H 119/67 92 L 06/03/19 00:00 98.5 F 102 H 20 122/65 92 L Weight Weight 122 lb I&O: 06/02/19 06/03/19 06/04/19 06:59 06:59 06:59 Intake Total 1560 Output Total 1000 Balance 560 Result Diagrams: 06/03/19 04:20 06/02/19 03:14 Hospitalist ROS - Medication Medications: Active Medications Generic Name Dose Route Start Last Admin Trade Name Freq PRN Reason Stop Dose Admin Acetaminophen 650 mg 06/01/19 22:24 06/02/19 20:37 Tylenol PO 650 mg Q4H PRN Administration Headache/Fever/Mild Pain (1-3) Alprazolam 0.25 mg 06/02/19 21:00 06/02/19 21:09 Xanax PO Not Given HS FARAZ Alprazolam 0.25 mg 06/02/19 07:52 06/03/19 09:04 Xanax PO 0.25 mg TIDPRN PRN Administration Anxiety Enoxaparin Sodium 40 mg 06/02/19 09:00 06/03/19 09:04 Lovenox SC 40 mg 0900 FARAZ Administration Meropenem 500 mg/ Sodium 100 mls @ 200 mls/hr 06/02/19 23:59 06/03/19 09:04 Chloride IVPB 100 mls 0800,1600,2359 FARAZ Administration Sodium Chloride 1,000 mls @ 100 mls/hr 06/02/19 23:00 06/03/19 10:39 Normal Saline 0.9% IV 1,000 mls .Q10H FARAZ Administration Vancomycin HCl 750 mg/ Sodium 250 mls @ 250 mls/hr 06/03/19 10:00 06/03/19 10 :38 Chloride IVPB 250 mls 0200,1000,1800 FARAZ Administration Ivabradine 5 mg 06/02/19 21:00 06/03/19 09:04 Corlanor PO 5 mg BID FARAZ Administration Metoprolol Succinate 25 mg 06/02/19 21:00 06/02/19 20:38 Toprol Xl PO 25 mg HS FARAZ Administration Osimertinib Mesylate 0 each 06/02/19 09:00 06/03/19 09:03 [Tagrisso] 80 Mg PO 1 each Tab DAILY FARAZ Administration Sodium Chloride 10 ml 06/02/19 09:00 06/03/19 09:05 Flush - Normal Saline IVF Not Given Q12HR FARAZ - Exam Neck: no JVD Heart: RRR Respiratory - other findings: decresed BS, rhonchi Gastrointestinal: soft, normal bowel sounds Extremities: no edema Hosp A/P (1) Acute respiratory failure with hypoxia Code(s): J96.01 - ACUTE RESPIRATORY FAILURE WITH HYPOXIA Status: Acute (2) Elevated troponin Code(s): R74.8 - ABNORMAL LEVELS OF OTHER SERUM ENZYMES Status: Acute (3) Malignant pleural effusion Code(s): J91.0 - MALIGNANT PLEURAL EFFUSION Status: Chronic (4) Metastatic lung cancer (metastasis from lung to other site) Code(s): C34.90 - MALIGNANT NEOPLASM OF UNSP PART OF UNSP BRONCHUS OR LUNG Status: Chronic Qualifiers: Laterality: left Qualified Code(s): C34.92 - Malignant neoplasm of unspecified part of left bronchus or lung - Plan on O2 blood C&S neg urine C&S corynebacterium on iv antibx,discuss with oncology diarrhea- stoolfor C diff
[2019-06-03] MEDS ORDERED: Iopamidol 370 76% 100 ML VIAL ONE (13:00)
--- NOTE | 2019-06-03 14:15 | PRG ---
DATE OF SERVICE: 06/03/2019 SUBJECTIVE: Ms. Barrientos is doing okay. Just having problem with diarrhea. OBJECTIVE: VITAL SIGNS: Heart rate is much better controlled, 99 sinus. ASSESSMENT: 1. Inappropriate sinus tachycardia, improved. 2. Increased troponin due to demand ischemia. 3. Malignancy is outlined in the chart. 4. Diarrhea. PLAN: Continue supportive care. No other recommendations at this point. She is on beta-prabhu and Corlanor. Heart rate is adequately controlled. Job ID: [id number]
--- NOTE | 2019-06-03 14:23 | CT ---
CT Abdomen Pelvis W Con: 06/03/2019 9:46 AM CLINICAL INFORMATION: Shortness of breath and metastatic disease; history of lung cancer COMPARISON: CT chest 06/01/2019 TECHNIQUE: Multiple contiguous axial images were obtained and a CT of the abdomen and pelvis with IV contrast. Oral contrast was administered. Coronal and sagittal reformats were performed. FINDINGS: Lower Chest: See dedicated chest CT dated 06/01/2019. Abdomen: Liver: Scattered hypodensities measuring up to 2.5 cm in size may represent metastatic disease. Bile Ducts: Normal caliber. Gallbladder: No calcified gallstones. Normal caliber wall. Pancreas: within normal limits. Spleen: Segmental areas of decreased enhancement may represent ongoing splenic infarctions. Adrenals: within normal limits. Kidneys: Nonspecific subcentimeter hypodensities are seen in both kidneys. A 1.4 cm hypodensity in th e lower pole the left kidney likely represents a cyst. Pelvis: Reproductive Organs: No pelvic masses. Ureters: within normal limits. Bladder: within normal limits. Peritoneum: No ascites or free air, no fluid collection. Bowel: Normal caliber. Mesentery and Retroperitoneum: No enlarged mesenteric or retroperitoneal lymph nodes. Vessels: Atherosclerotic calcifications. Abdominal Wall: within normal limits. Bones: Degenerative changes in the spine. IMPRESSION: 1. Possible hepatic metastatic disease 2. 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 3. Nonspecific hypodensities in the kidneys.
--- NOTE | 2019-06-03 15:50 | PDOC.MOPN ---
Interval History: Patient feels better today. Less SOB, mild diarrhea. - Vital Signs Vital Signs: Vital Signs (12 hours) Temp Pulse Resp BP BP Pulse Ox 06/03/19 15:31 97.5 F L 88 16 131/68 95 06/03/19 12:15 98 F 102 H 30 H 132/57 L 92 L 06/03/19 07:57 98 F 105 H 30 H 127/67 92 L 06/03/19 04:00 98.6 F 104 H 22 H 119/67 92 L Weight Weight 122 lb - Physical Exam General: Alert, Oriented x3, No acute distress HEENT: Atraumatic, PERRLA, EOMI, Mucous membr. moist/pink Lungs: Other Cardiovascular: Regular rate Abdomen: Normal bowel sounds, Soft, No tenderness, No hepatospenomegaly, No masses Extremities: No clubbing, No cyanosis, No edema, Normal pulses, No tenderness/ swelling Skin: No rashes, No breakdown, No significant lesion Neurological: Normal gait, Normal speech, Strength at 5/5 X4 ext, Normal tone, Sensation intact, Cranial nerves 3-12 NL, Reflexes 2+ Psych/Mental Status: Mental status NL, Mood NL - Labs Result Diagrams: 06/03/19 04:20 06/02/19 03:14 Lab results: Laboratory Results - last 24 hr 06/03/19 04:20: WBC 15.2 H, RBC 4.59, Hgb 13.2, Hct 38.9, MCV 84.7, MCH 28.7, MCHC 33.9, RDW 12.1, Plt Count 127 L, MPV 9.6, Neutrophils % 87.5 H, Lymphocytes % 4.2 L, Monocytes % 6.7, Eosinophils % 1.4, Basophils % 0.2, Neutrophils # 13.3 H, Lymphocytes # 0.6 L, Monocytes # 1.0 H, Eosinophils # 0.2 , Basophils # 0.0 06/03/19 00:57: Vancomycin Trough 7.8 Status: lab reviewed by me A/P - Problem (1) Acute respiratory failure with hypoxia Current Visit: Yes Code(s): J96.01 - ACUTE RESPIRATORY FAILURE WITH HYPOXIA Status: Acute (2) Malignant pleural effusion Current Visit: Yes Code(s): J91.0 - MALIGNANT PLEURAL EFFUSION Status: Chronic (3) Metastatic lung cancer (metastasis from lung to other site) Current Visit: Yes Code(s): C34.90 - MALIGNANT NEOPLASM OF UNSP PART OF UNSP BRONCHUS OR LUNG Status: Chronic Qualifiers: Laterality: left Qualified Code(s): C34.92 - Malignant neoplasm of unspecified part of left bronchus or lung (4) Anxiety Current Visit: No Code(s): F41.9 - ANXIETY DISORDER, UNSPECIFIED Status: Chronic - Plan Plan: Restage with CT scan complete Patient will start Carbo/Alimta/Keytruda next week after her son's wedding this weekend. pleurx cath management per Dr. Lynne Antibiotics per yadira. Home when ok with other consultants.
[2019-06-03] MEDS: ALPRAZolam 0.25 MG TAB PO SCH (20:09)
[2019-06-04] MEDS: Meropenem 500 MG in Sodium Chloride 0.9% 100 ML IVPB SCH ×2 (00:16→07:33)
[2019-06-04] MEDS ORDERED: clonazePAM 0.5 MG TAB PO PRN (00:58)
[2019-06-04 01:27] LABS: Vancomycin, Trough 13.1 ug/mL
[2019-06-04] MEDS: Vancomycin HCl 750 MG in Sodium Chloride 0.9% 250 ML 250 ML IVPB SCH (02:46)
[2019-06-04] MEDS: Sodium Chloride 0.9% 1,000 ML IV SCH (02:46)
[2019-06-04] MEDS: Enoxaparin Sodium 40 MG/0.4 ML SYRINGE SC SCH (07:33)
[2019-06-04] MEDS: Ivabradine 5 MG TAB PO SCH (07:33)
[2019-06-04] MEDS: ALPRAZolam 0.25 MG TAB PO PRN (07:34)
--- NOTE | 2019-06-04 08:29 | PDOC.HOSPP ---
- Subjective Encounter Date: 06/04/19 Encounter Time: 08:27 Subjective: sob without O2 - Objective Vital Signs & Weight: Vital Signs (12 hours) Temp Pulse Resp BP BP Pulse Ox 06/04/19 07:18 97.7 F 109 H 30 H 143/71 H 92 L 06/04/19 04:00 94 L 06/04/19 03:15 98 F 107 H 18 130/71 92 L 06/03/19 23:15 97.6 F 103 H 20 128/62 94 L Weight Weight 122 lb I&O: 06/03/19 06/04/19 06/05/19 06:59 06:59 06:59 Intake Total 1560 4810 Output Total 1000 1600 Balance 560 3210 Result Diagrams: 06/03/19 04:20 06/02/19 03:14 Hospitalist ROS - Medication Medications: Active Medications Generic Name Dose Route Start Last Admin Trade Name Freq PRN Reason Stop Dose Admin Acetaminophen 650 mg 06/01/19 22:24 06/02/19 20:37 Tylenol PO 650 mg Q4H PRN Administration Headache/Fever/Mild Pain (1-3) Alprazolam 0.25 mg 06/02/19 21:00 06/03/19 20:09 Xanax PO 0.25 mg HS FARAZ Administration Alprazolam 0.25 mg 06/02/19 07:52 06/04/19 07:34 Xanax PO 0.25 mg TIDPRN PRN Administration Anxiety Clonazepam 0.25 mg 06/04/19 00:58 06/04/19 01:09 Klonopin PO 0.25 mg DAILYPRN PRN Administration Anxiety Enoxaparin Sodium 40 mg 06/02/19 09:00 06/04/19 07:33 Lovenox SC 40 mg 0900 FARAZ Administration Levofloxacin 750 mg/ Device 150 mls @ 100 mls/hr 06/03/19 12:00 06/03/19 11: 52 IVPB 150 mls 1200 FARAZ Administration Meropenem 500 mg/ Sodium 100 mls @ 200 mls/hr 06/02/19 23:59 06/04/19 07:33 Chloride IVPB 100 mls 0800,1600,2359 FARAZ Administration Sodium Chloride 1,000 mls @ 100 mls/hr 06/02/19 23:00 06/04/19 02:46 Normal Saline 0.9% IV 1,000 mls .Q10H FARAZ Administration Vancomycin HCl 750 mg/ Sodium 250 mls @ 250 mls/hr 06/03/19 10:00 06/04/19 02 :46 Chloride IVPB 250 mls 0200,1000,1800 FARAZ Administration Ivabradine 5 mg 06/02/19 21:00 06/04/19 07:33 Corlanor PO 5 mg BID FARAZ Administration Metoprolol Succinate 25 mg 06/02/19 21:00 06/03/19 20:08 Toprol Xl PO 25 mg HS FARAZ Administration Osimertinib Mesylate 0 each 06/02/19 09:00 06/03/19 09:03 [Tagrisso] 80 Mg PO 1 each Tab DAILY FARAZ Administration Sodium Chloride 10 ml 06/02/19 09:00 06/03/19 20:12 Flush - Normal Saline IVF Not Given Q12HR FARAZ - Exam General Appearance: awake alert Neck: no JVD Heart: RRR, no murmur Respiratory - other findings: post BS clear without wheezes ,etc Hosp A/P (1) Acute respiratory failure with hypoxia Code(s): J96.01 - ACUTE RESPIRATORY FAILURE WITH HYPOXIA Status: Acute (2) Elevated troponin Code(s): R74.8 - ABNORMAL LEVELS OF OTHER SERUM ENZYMES Status: Acute (3) Malignant pleural effusion Code(s): J91.0 - MALIGNANT PLEURAL EFFUSION Status: Chronic (4) Metastatic lung cancer (metastasis from lung to other site) Code(s): C34.90 - MALIGNANT NEOPLASM OF UNSP PART OF UNSP BRONCHUS OR LUNG Status: Chronic Qualifiers: Laterality: left Qualified Code(s): C34.92 - Malignant neoplasm of unspecified part of left bronchus or lung - Plan on O2 blood C&S neg urine C&S corynebacteri DC meropenem, vancomycin, cont levaquin, O2 discuss DC with oncology arrange home O2
[2019-06-04] MEDS: OSIMERTINIB MESYLATE 80 MG PO SCH (09:00)
--- NOTE | 2019-06-04 13:40 | PDOC.MOPN ---
Interval History: slept poorly last nigh, dry cough. - Vital Signs Vital Signs: Vital Signs (12 hours) Temp Pulse Resp BP BP Pulse Ox 06/04/19 09:18 95 85 L 06/04/19 09:13 97 85 L 06/04/19 09:12 95 83 L 06/04/19 09:09 94 92 L 06/04/19 09:06 97 90 L 06/04/19 09:04 101 H 79 L 06/04/19 09:01 101 H 80 L 06/04/19 07:18 97.7 F 109 H 30 H 143/71 H 92 L 06/04/19 04:00 94 L 06/04/19 03:15 98 F 107 H 18 130/71 92 L Weight Weight 122 lb - Physical Exam General: Alert, Oriented x3, No acute distress HEENT: Atraumatic, PERRLA, EOMI, Mucous membr. moist/pink Lungs: Other Cardiovascular: Regular rate, Normal S1, Normal S2, No murmurs, Gallops, Rubs Abdomen: Normal bowel sounds, Soft, No tenderness, No hepatospenomegaly, No masses Extremities: No clubbing, No cyanosis, No edema, Normal pulses, No tenderness/ swelling Skin: No rashes, No breakdown, No significant lesion Neurological: Normal gait, Normal speech, Strength at 5/5 X4 ext, Normal tone, Sensation intact, Cranial nerves 3-12 NL, Reflexes 2+ Psych/Mental Status: Mental status NL, Mood NL - Labs Result Diagrams: 06/03/19 04:20 06/02/19 03:14 Lab results: Laboratory Results - last 24 hr 06/04/19 01:03: Vancomycin Trough 13.1 Status: lab reviewed by me A/P - Problem (1) Acute respiratory failure with hypoxia Current Visit: Yes Code(s): J96.01 - ACUTE RESPIRATORY FAILURE WITH HYPOXIA Status: Acute (2) Malignant pleural effusion Current Visit: Yes Code(s): J91.0 - MALIGNANT PLEURAL EFFUSION Status: Chronic (3) Metastatic lung cancer (metastasis from lung to other site) Current Visit: Yes Code(s): C34.90 - MALIGNANT NEOPLASM OF UNSP PART OF UNSP BRONCHUS OR LUNG Status: Chronic Qualifiers: Laterality: left Qualified Code(s): C34.92 - Malignant neoplasm of unspecified part of left bronchus or lung (4) Anxiety Current Visit: No Code(s): F41.9 - ANXIETY DISORDER, UNSPECIFIED Status: Chronic - Plan Plan: Patient qualified for home O2, CM working on it Abx deescalated Plan to start chemo/immunotherapy on Monday Home when O2 acquired. Follow-up Dr. Hood Sunday 06/10. 1:45
[2019-06-04 16:56] VITALS: BP 128/73; TEMP 98
--- NOTE | 2019-06-05 07:30 | DIS ---
DATE OF ADMISSION: 06/01/2019 DATE OF DISCHARGE: 06/04/2019 PRIMARY CARE PROVIDER: Les Collins MD DISPOSITION: Discharged home. FINAL DIAGNOSES: 1. Sepsis, unspecified organism. 2. Pneumonia, probable pneumococcus. 3. Malignant neoplasm of the lung. 4. Malignant pleural effusion. 5. Myocardial infarction type 2. DISCHARGE MEDICATIONS: 1. Metoprolol 25 mg h.s. 2. Levaquin 750 mg a day for 4 more days. 3. Clonazepam 0.25 mg a day. 4. Alprazolam 0.25 mg a day. 5. Corlanor 5 mg p.o. b.i.d. ALLERGIES: TO ANTIHISTAMINES, IBUPROFEN, GENERALIZED NSAIDS, PENICILLIN, SULFA, TETRACYCLINE. CODE STATUS: Full resuscitation. PENDING AT TIME OF DISCHARGE: Preliminary is on body fluid culture that is pleural effusion and blood cultures are negative at 48 hours. HOSPITAL COURSE: The patient admitted to the Hospitalist Service through [facility] with shortness of breath. She has a chest tube for malignant pleural effusion. She had elevated white count, significant tachycardia, mild hyponatremia. She had evidence of myocardial infarction type 2. Cultures were obtained. She was put on broad-spectrum antibiotics. CT of the chest revealed no evidence of an embolus, consolidation left upper lobe, increase in pleural fluid on the left, right hepatic lobe mass. She was seen in consultation by Dr. Ebenezer Lynne, Cardiovascular Surgery. She was to continue every other day PleurX catheter drainage. Fluid was sent for culture, etc. She was seen in consultation by Azra Hernandez for Oncology. She was seen by Cardiology, Dr. Ronaldo Gamble. At the time of discharge, she is stable. Cultures are negative. Her initial white count was 14.7, final was 15.2. Chemistries; troponins were elevated at 0.55, 0.63, 0.57. Comprehensive metabolic profile showed only sodium 130, which returned to 137, normal. Her lactic acids were normal. No procedures were done except for draining her PleurX. She is to follow up with Dr. Hood, Cardiology, Monday for initiation of further chemotherapy. Job ID: [id number]
--- NOTE | 2019-06-06 06:11 | PQF ---
JG RANKIN, BUCKLAND Vito RAMIREZ [id number] CLINICAL DOCUMENTATION CLARIFICATION FORM: POST DISCHARGE Addendum to original discharge summary date: ____ Late entry note date: __ DATE: 06-06-2019 ATTN: Dr. Montenegro, [place] Please exercise your independent, professional judgment in responding to the clarification form. Clinical indicators are provided on the bottom of this form for your review Can you please specify if the sepsis is a complication of Pleurx catheter placement Please check appropriate box(s): [ ] sepsis as a complication of Pleurx catheter placement [ x ] sepsis not a complication of Pleurx catheter placement [ ] Other diagnosis please specify [ ] Unable to determine CLINICAL INDICATORS: ED Notes 06/01 "presents for evaluation of SOB" 06/02 "patient has recently got a chest tube for malignant pleural effusion" 06/02 "presented after having fever and SOB" 06/02 "patient has elevated WBC, tachycardia with organ dysfunction" Consult 06/02 "required thoracentesis on a number of occassions over the past 6 months" Consult 06/02 "had a pluerx catheter placed 2 months ago" RISK FACTORS: 06/02- s/p chest tube placement 06/02- 64 years old female 06/02- lung cancer 06/02- PNA 06/02- sepsis TREATMENT: 06/02-IVF NOV 17 -Levaquin 750mg IV NOV 17 -Vancomycin 1gm IV PN 06/03 - Blood culture (This form is maintained as a part of the permanent medical record) 2014 [employer]. All Rights Reserved Prachi [email or web address] [not provided] MTDD
== END 2019-06-04 18:30 | disposition home or self-care (01) | DRG 871 ==
LOC: ERS 11:41 → 2NO 17:35
PROVIDERS: ADMIT Internal Medicine Nephrology; ATTEND Internal Medicine Nephrology
DX: A41.9 Sepsis, unspecified organism (principal); J96.01 Acute respiratory failure with hypoxia; I21.A1 Myocardial infarction type 2; J13 Pneumonia due to Streptococcus pneumoniae; C34.12 Malignant neoplasm of upper lobe, left bronchus or lung; J91.0 Malignant pleural effusion; E87.1 Hypo-osmolality and hyponatremia; E44.0 Moderate protein-calorie malnutrition; Z68.1 Body mass index [BMI] 19.9 or less, adult; C79.51 Secondary malignant neoplasm of bone; C79.31 Secondary malignant neoplasm of brain; R65.20 Severe sepsis without septic shock; F41.9 Anxiety disorder, unspecified; E78.5 Hyperlipidemia, unspecified; I10 Essential (primary) hypertension; F32.9 Major depressive disorder, single episode, unspecified; R16.0 Hepatomegaly, not elsewhere classified; R19.7 Diarrhea, unspecified; Z91.018 Allergy to other foods; Z85.828 Personal history of other malignant neoplasm of skin; Z88.0 Allergy status to penicillin; Z79.899 Other long term (current) drug therapy; Z88.8 Allergy status to other drugs, medicaments and biological substances; Z88.2 Allergy status to sulfonamides; Z99.81 Dependence on supplemental oxygen; Z87.891 Personal history of nicotine dependence; Z88.1 Allergy status to other antibiotic agents; Z88.5 Allergy status to narcotic agent; B96.89 Other specified bacterial agents as the cause of diseases classified elsewhere
CPT/HCPCS: 36415; 71045; 71275; 74177; 80048; 80053; 80202; 81003; 81015; 82553; 83605; 83630; 83880; 84484; 85025; 87040; 87070; 87086; 87205; 87324; 87449; 93005; 96361; 96365; J1650; J1956; J2185; J3370; J3490; J7050; Q9966; Q9967

== ENCOUNTER 2019-06-10 16:51 | Inpatient (IN) | payer OTHER, SELFPAY ==
[~2019-06-10 16:51] MED LIST changes: +ISOVUE-370 76%-LOCM 1 ML ONE; -Lidocaine 1% (PF) 30 ML VIAL ONE; -Lidocaine 1% PF 5 ML VIAL ONE
[2019-06-10] MEDS ORDERED: Furosemide 40 MG/4 ML VIAL ONE (17:12)
[2019-06-10 17:20] LABS: Actual Bicarbonate (HCO3a) 22.8 mEq/L (22-28); Analyzer IN Cardio ER; Base Excess (BEa) 0.8 mEq/L (-2.0 to +3.0); Carboxyhemoglobin (COHb) 0.2 gm% (0.0-3.0); Hemoglobin (Hb) 13.2 g/dL (12.0-16.0); O2 Tension (PaO2) 62.5 mmHg (> 80.0); pH, Arterial 7.51 (7.35-7.45)
[2019-06-10 17:21] LABS: Puncture Site LRA
[2019-06-10] MEDS ORDERED: Lorazepam 2 MG/ML VIAL ONE (17:23)
[2019-06-10 17:32] LABS: #Eosinphils 0.2 thou/uL (0.0-0.7); #Lymphocytes 0.6 thou/uL (1.20-3.40); #Monocytes 1.5 thou/uL (0.11-0.59); %Basophils 0.1 % (0.0-1.0); %Eosinophils 1.1 % (0.0-10.0); %Lymphocytes 3.3 % (21.0-51.0); %Monocytes 7.8 % (0.0-10.0); %Neutrophils 87.7 % (42.0-75.0); Hemoglobin 13.4 g/dL (12.0-16.0); Mean Corpuscular HGB CONC 34.3 g/dL (32.0-36.0); Mean Corpuscular Hemoglobin 28.1 pg (27.0-31.0); Mean Corpuscular Volume 81.9 fL (78.0-98.0); Platelet Count 126 thou/uL (130-400); RBC Distribution Width 12.4 % (11.5-14.5); Red Blood Cell (RBC) Count 4.78 mill/uL (4.20-5.40); White Blood Cell (WBC) Count 19.4 thou/uL (4.8-10.8)
--- NOTE | 2019-06-10 18:01 | RAD ---
RADIOGRAPH CHEST 1 VIEW: DATE: 06/10/2019 TIME: 5:20 PM HISTORY: 64-year-old female with dyspnea COMPARISON: 06/01/2019 FINDINGS: Interval worsening of previously mild diffuse interstitial infiltrates in the right lung, now with al veolar confluence in right upper lobe, and worsening of interstitial infiltrates in right lower lobe. No major interval change in small left pleural effusion and possible worsening of consolidation at le ft lung base. Left-sided chest tube remains. No pneumothorax visualized. IMPRESSION: 1. Interval worsening of diffuse interstitial infiltrates throughout right lung, now with alveolar co mponents. 2. Probable interval worsening of consolidation at left lung base. 3. Stable left small pleural effusion.
[2019-06-10 18:04] LABS: ALT (SGPT) 27 U/L (8-55); AST (SGOT) 26 U/L (5-34); Alkaline Phosphatase 71 U/L (40-110); Anion Gap 13 mmol/L (10-20); BUN (Urea Nitrogen) 12 mg/dL (9.8-20.1); Bilirubin, Total 0.4 mg/dL (0.2-1.2); CK (CPK) 162 U/L (29-168); Calc. Creatinine Clearance 0 mL/min (70-130); Calcium 8.2 mg/dL (7.8-10.44); Carbon Dioxide 26 mmol/L (23-31); Chloride 91 mmol/L (98-107); Estimated GFR-MDRD 89; Globulin 2.8 g/dL (2.4-3.5); Glucose 111 mg/dL (80-115); Potassium 4.3 mmol/L (3.5-5.1); Protein, Total 5.8 g/dL (6.0-8.3); Sodium 126 mmol/L (136-145)
--- NOTE | 2019-06-10 18:40 | CT ---
CT ANGIOGRAM THORAX WITH CONTRAST: (CTA pulmonary angiogram) DATE: 06/10/2019 HISTORY: 64-year-old female with dyspnea and lower extremity edema. Rule out pulmonary embolism. COMPARISON: 06/01/2019 TECHNIQUE: IV injection of iodinated contrast. Scan acquisition timing attempted to coincide with iodinated contrast bolus reaching maximal density in pulmonary arteries. 3-D MIP reconstructions. FINDINGS: There is clot in first or second order branch of right middle lobe pulmonary artery, and more periphe ral branches of it. This is a new finding since the prior CTA. There is narrowing of peripheral branches of right lower lobe pulmonary artery due to surrounding infiltrates which have worsened. The se infiltrates follow the branches of the right lower lobe pulmonary vessels and bronchi, and are new or worse than on the previous study. Furthermore, the groundglass lesions of the right upper lobe have become larger and more confluent, and have become consolidation.. No pulmonary thromboembolism identified in the left and right main pulmonary arteries, pulmonic trunk, or left pul monary artery branches. Consolidation of entire left upper lobe again noted due to malignant neoplasm. Small left pleural effusion with loculated components is largest at the left base. The locu lated component at medial left upper lung zone has decreased in size. Left-sided chest tube remains. No pneumothorax. No thoracic aortic aneurysm or dissection. IMPRESSION: 1. Pulmonary thromboembolism involving branches of right middle lobe pulmonary artery. 2. Interval worsening of infiltrates in the right lower lobe and right upper lobe, probably represent ing acute right-sided pneumonia. 3. Evidence for left upper lobe primary lung cancer. 4. Loculated left pleural effusion.
[2019-06-10] MEDS ORDERED: Aspirin Chewable 81 MG TAB ONE (19:17)
[2019-06-10] MEDS ORDERED: Cefepime 2 GM VIAL ONE (19:17)
[2019-06-10] MEDS ORDERED: Enoxaparin Sodium 60 MG/0.6 ML SYRINGE ONE (19:53)
[2019-06-10 20:02] LABS: Bilirubin Negative (Negative); Blood, Urine Negative (Negative); Clarity Clear (Clear); Glucose, Urine (Dipstick) Normal (Negative); Leukocyte Negative Leu/uL (Negative); Nitrite Negative (Negative); Protein, Urine (Dipstick) Negative (Neg-Trace); Urobilinogen Normal mg/dL (Less than 2)
[2019-06-10 20:52] LABS: Troponin I 0.283 ng/mL (< 0.028)
[2019-06-10] MEDS ORDERED: Ondansetron PF 4 MG/2 ML Vial IVP PRN (20:57)
[2019-06-10] MEDS ORDERED: Acetaminophen 500 MG TAB PO PRN (20:57)
[2019-06-10] MEDS ORDERED: CCU Electrolyte Replacement 1 EACH FS ONE (20:57)
[2019-06-10] MEDS ORDERED: Potassium Phosphate 12 MMOL in Sodium Chloride 0.9% 250 ML 250 ML IV PRN (21:06)
[2019-06-10] MEDS ORDERED: Potassium Phosphate 9 MMOL in Sodium Chloride 0.9% 100 ML IVPB PRN (21:06)
[2019-06-10] MEDS ORDERED: Magnesium 2 GM/50 ML 2 GM in Premix Bag 1 BAG IVPB PRN (21:06)
[2019-06-10] MEDS ORDERED: CCU ELECTROLYTE REPLACEMENT PROTOCOL FS PRN (21:06)
[2019-06-10] MEDS ORDERED: Potassium Chloride 20 MEQ TAB PO PRN (21:06)
[2019-06-10] MEDS ORDERED: Magnesium Oxide 400 MG TAB PO PRN ×2 (21:06)
[2019-06-10] MEDS ORDERED: Potassium Phosphate 15 MMOL in Sodium Chloride 0.9% 250 ML 250 ML IV PRN (21:06)
[2019-06-10] MEDS ORDERED: PHOS-NAK 1 PKT PACK PO PRN ×2 (21:06)
[2019-06-10] MEDS ORDERED: Potassium Chloride 40 MEQ in Sodium Chloride 0.9% 250 ML 250 ML IVPB PRN (21:06)
[2019-06-10] MEDS ORDERED: Potassium Chloride 40 MEQ in Premix Bag 1 BAG IVPB PRN (21:06)
[2019-06-10] MEDS: Famotidine/PF 20 mg/2ml Vial SLOW IVP SCH (23:41)
[2019-06-10] MEDS: Sodium Chloride 0.9% 1,000 ML IV SCH (23:42)
[2019-06-10] MEDS: Ivabradine 5 MG TAB PO SCH (23:45)
[2019-06-10] MEDS ORDERED: ALPRAZolam 0.25 MG TAB PO SCH (23:45)
[2019-06-11 00:22] LABS: Troponin I 0.225 ng/mL (< 0.028)
--- NOTE | 2019-06-11 01:36 | HP ---
PRIMARY CARE PROVIDER: Dr. Les Collins. CHIEF COMPLAINT: Shortness of breath and lower extremity swelling. HISTORY OF PRESENT ILLNESS: This is a 64-year-old female who presents to [facility] Emergency Department in transfer from a cancer clinic where the patient was presenting for routine followup after recent hospitalization, 06/01 through 06/04/2019, for right-sided pneumonia in the context of adenocarcinoma of the lung with associated malignant pleural effusion. The patient was discharged on Levaquin for approximately 4 days. At which point, the patient's family states she took the medication, however, continued to feel weak with decreased activity level. The patient was able to attend the wedding of her son over 2 days prior to this evaluation with most of her energy expelled. The patient admitted to increased shortness of breath which was progressive in addition noted swelling of her lower extremities moving up to her knees. The patient was scheduled for a followup with her primary oncologist to initiate chemo and immunotherapy for the newly diagnosed adenocarcinoma of the lung when she was noted severely short of breath and hypoxic, requiring 100% non-rebreather mask and transfer to the emergency room for evaluation. In the emergency room, the patient was placed on BiPAP noninvasive mechanical ventilation after severe shortness of breath and respiratory compromise was noted. The patient underwent CT imaging of the chest after presentation showing evidence of increasing right-sided infiltrate in addition to right middle lobe pulmonary artery pulmonary emboli. The patient received Lovenox 60 mg subcutaneously in addition to cefepime and vancomycin due to concern for worsening pneumonia. The patient also received IV Lasix 40 mg x1 dose and Ativan 1 mg. PAST MEDICAL HISTORY: 1. Adenocarcinoma of the left upper lobe, awaiting chemo and immunotherapy initiation. 2. Right-sided pneumonia with suspected pneumococcal species, hospitalized at [facility], 06/01 through 06/04/2019. 3. Malignant pleural effusion, status post PleurX catheter placement. 4. Hypertension. 5. Anxiety. 6. Hyperlipidemia. PAST SURGICAL HISTORY: 1. Status post left PleurX catheter placement. 2. Status post section. CURRENT MEDICATIONS: 1. Metoprolol 25 mg p.o. at bedtime. 2. Clonazepam 0.25 mg p.o. daily. 3. Corlanor 5 mg p.o. b.i.d. ALLERGIES: ANTIHISTAMINES, IBUPROFEN, NSAIDS, PENICILLIN, SULFA, AND TETRACYCLINES. FAMILY HISTORY: Father of complications of acute myocardial infarction. SOCIAL HISTORY: The patient is , accompanied by her and family in the emergency room. Quit tobacco approximately 30 years prior. No alcohol or illicit drug use. REVIEW OF SYSTEMS: CONSTITUTIONAL: Negative for weight loss or gain, ability to conduct usual activities. SKIN: Negative for rash, itching. EYES: Negative for double vision, pain. ENT/MOUTH: Negative for nose bleeding, neck stiffness, pain, tenderness. CARDIOVASCULAR: Negative for palpitations, dyspnea on exertion, orthopnea. RESPIRATORY: Negative for shortness of breath, wheezing, cough, hemoptysis, fever or night sweats. GASTROINTESTINAL: Negative for poor appetite, abdominal pain, heartburn, nausea, vomiting, constipation, or diarrhea. GENITOURINARY: Negative for urgency, frequency, dysuria, nocturia. MUSCULOSKELETAL: Negative for pain, swelling. NEUROLOGIC/PSYCHIATRIC: Negative for anxiety, depression. ALLERGY/IMMUNOLOGIC: Negative for skin rash, bleeding tendency. Otherwise, negative except as stated per HPI. PHYSICAL EXAMINATION: VITAL SIGNS: On admission, blood pressure 116/69, pulse 104, respiratory rate 38, temperature 98.2 degrees Fahrenheit, O2 saturation 87% on 6 L of oxygen by face mask. GENERAL APPEARANCE: This is a 64-year-old female, on current BiPAP noninvasive mechanical ventilation with respiratory distress. HEENT: Pupils are equal, round, reactive to light and accommodation. Extraocular muscles intact. Nares patent. BiPAP face mask in place. NECK: Supple. No cervical adenopathy. No thyromegaly. No carotid bruits. No JVD appreciated. Cervical spine with full active and passive range of motion. No meningeal signs noted. CHEST: Diminished breath sounds bilaterally with occasional rhonchi and prolonged expiratory phase. CARDIOVASCULAR EXAM: S1 and S2 with tachycardia. Distant heart sounds on exam. ABDOMEN: Flat, soft, nontender, and nondistended. Bowel sounds are positive in all 4 quadrants. There is no hepatosplenomegaly. No abdominal bruits. No rebound or guarding appreciated. EXTREMITIES: Warm and dry with fair turgor. Pitting edema to the knees bilaterally. Pulses are palpable distally at the dorsalis pedis, posterior tibial, and popliteal arteries bilaterally. Capillary refill less than 2 seconds. NEUROLOGIC: Cranial nerves 2 through 12 are grossly intact. No focal or lateralizing signs appreciated. The patient not observed ambulatory during this exam. PERTINENT LABORATORY AND X-RAY FINDINGS: Sodium 126, potassium 4.3, chloride 91, CO2 of 26, BUN 12, creatinine 0.67, glucose 111, lactic acid level 1.5, calcium 8.2. LFTs within normal limits. Troponin I 0.269. BNP 418, previously noted 75 on 06/01/2019. Albumin 3.0. CBC showed a white blood cell count of 19.4, hemoglobin 13, hematocrit 39, platelet count 126 with 88% neutrophils. ABG dated 06/10/2019, showed a pH of 7.51, pCO2 of 29, PO2 of 62.5, bicarb 22.8 with O2 saturation 92% on 30% FiO2 by BiPAP noninvasive mechanical ventilation. Portable chest x-ray dated 06/10/2019, showed worsening diffuse interstitial infiltrates throughout the right lung with consolidation of the left lung base. Small left pleural effusion. CT angiogram of the chest dated 06/10/2019, showed pulmonary thromboembolism of the right middle lobe pulmonary artery. Worsening infiltrates of the right lower and right upper lobe. Left upper lobe primary lung carcinoma noted. Loculated left pleural effusion. EKG dated 06/10/2019, by my interpretation shows a sinus tachycardia with heart rates in the low 100s. Attenuated R-waves noted in the precordial leads. Left axis deviation. ASSESSMENT AND PLAN: 1. Acute hypoxic respiratory failure. Multifactorial process including pulmonary embolus in addition to right-sided pneumonia as stated previously. We will continue BiPAP noninvasive mechanical ventilation to maintain O2 saturation greater than or equal to 90%. See below for management. Consult Pulmonology Critical Care Service for further evaluation. 2. Severe sepsis. Suspect secondarily to interval worsening of right-sided pneumonia. Suspected gram-positive cocci, however, patient with recent hospitalization. We will broaden coverage as outlined below to include healthcare-associated pneumonia. Continue general sepsis protocol. 3. Right-sided pneumonia, with concern for healthcare associated pneumonia. Continue cefepime 2 g IV q.12 hours with additional vancomycin 1 g IV b.i.d. Blood and urine cultures pending. Consult Pulmonology Service in the a.m. Continue oxygen supplementation as outlined previously. 4. Right-sided pulmonary embolus. Continue Lovenox 1 mg/kg subcutaneously q.12 hours. Initial Lovenox given in the emergency room. 5. Left upper lobe adenocarcinoma of the lung. We will continue supportive management as outlined previously. We will need clinical stabilization prior to initiation of any chemo or immunotherapy. 6. Hyponatremia. Suspect secondarily to #1 and #2. Continue serial sodium monitoring. Intravenous normal saline at 75 mL/h. 7. Prophylaxis. SCDs while in bed. Pepcid 20 mg IV q.12 hours. Consider PT evaluation when clinically stabilizing. 8. Code status is full. Surrogate medical decision maker is the patient's spouse. TIME SPENT: Total critical care time is 40 minutes. Job ID: [id number]
[2019-06-11 05:11] LABS: ALT (SGPT) 18 U/L (8-55); AST (SGOT) 16 U/L (5-34); Albumin 2.2 g/dL (3.4-4.8); Alkaline Phosphatase 53 U/L (40-110); Anion Gap 11 mmol/L (10-20); BUN (Urea Nitrogen) 12 mg/dL (9.8-20.1); Bilirubin, Total 0.4 mg/dL (0.2-1.2); Calc. Creatinine Clearance 83 mL/min (70-130); Calcium 7.5 mg/dL (7.8-10.44); Carbon Dioxide 28 mmol/L (23-31); Chloride 94 mmol/L (98-107); Estimated GFR-MDRD Greater than 90; Globulin 2.4 g/dL (2.4-3.5); Glucose 108 mg/dL (80-115); Potassium 3.7 mmol/L (3.5-5.1); Protein, Total 4.6 g/dL (6.0-8.3); Sodium 129 mmol/L (136-145)
[2019-06-11 05:39] LABS: Band 11 % (5-11); Eosinophils 1 % (0-10); Hemoglobin 11.6 g/dL (12.0-16.0); MDiff Complete? YES; Mean Corpuscular HGB CONC 33.8 g/dL (32.0-36.0); Mean Corpuscular Hemoglobin 27.8 pg (27.0-31.0); Mean Corpuscular Volume 82.3 fL (78.0-98.0); Mean Platelet Volume 8.7 fL (7.4-10.4); Monocytes 3 % (0-10); Neutrophil 85 % (42-75); Platelet Count 128 thou/uL (130-400); RBC Distribution Width 12.4 % (11.5-14.5); Red Blood Cell (RBC) Count 4.17 mill/uL (4.20-5.40); White Blood Cell (WBC) Count 19.1 thou/uL (4.8-10.8)
[2019-06-11] MEDS: Cefepime 2 GM in Sodium Chloride 0.9% 100 ML IVPB SCH ×2 (06:12→17:37)
[2019-06-11] MEDS ORDERED: Albumin 25% 25 GM/100 ML BOT IVPB SCH (07:34)
--- NOTE | 2019-06-11 08:56 | CON ---
DATE OF CONSULTATION: HISTORY OF PRESENT ILLNESS: This is a 64-year-old female, who has seen Dr. Case and Dyllan in our office, came in last night with acute respiratory failure. There was extensive history well outlined in several of the medical reports. She has a left-sided pleural catheter placed in for metastatic carcinoma. She has seen Dr. Mars. Just felt she might have been fluid overloaded. She now comes in with lower extremity swelling and dizziness. Cancer was left-sided. It is unclear whether she was treated. DIAGNOSTIC STUDIES: X-ray in the ER shows diffuse bilateral airspace disease. With a chest tube in the side. She was on a BiPAP with a sat of 90%, blood pressure 70/60, pulse 82, and respiratory rate 20. She denies any pain or discomfort. PAST MEDICAL HISTORY: History of mitral valve issues, hypertension, lung cancer, left upper lung, COPD, and pleural effusion. PREVIOUS SURGERIES: . SOCIAL HISTORY: Tobacco, quit 30 years ago. HOME MEDICATIONS: Included, 1. Clonazepam 0.25. 2. Toprol-XL 25. 3. Ivabradine 5 mg. 4. Xanax p.r.n. ALLERGIES: ANTIHISTAMINE, PENICILLIN, SULFA, AND TETRACYCLINE. REVIEW OF SYSTEMS: Otherwise, difficult to obtain, but appears unremarkable, pulse 81, blood pressure 80/60, . CHEST: Decreased breath sounds without any wheezing. CARDIAC: Sinus tach. ABDOMEN: Soft. NEUROLOGIC: She is awake, responsive, moves all 4 extremities. LABORATORY DATA: Lab shows white count 19,000, H and H are 11 and 34, platelet count is normal. Her sodium 129. Lipase 2.2. BNP is elevated at 400. A CT chest shows pulmonary thromboembolism involving the right middle lobe, worsening infiltrates right lower lobe, right upper lobe, left upper lung cancer, loculated left pleural effusion. IMPRESSION: 1. New onset pulmonary embolism. 2. Carcinoma, left lung, recurrent pleural effusions. 3. Respiratory failure, fluid overload versus pneumonia, on steroids and neb treatments. Echo is being ordered. Supportive care. She is hypertensive. We will discuss with her family whether she is a full code. If condition gets worse she may require intubation. This is a 45-minute critical time. Job ID: [id number]
--- NOTE | 2019-06-11 09:05 | RAD ---
SINGLE VIEW OF THE CHEST: COMPARISON: 06/10/2019. HISTORY: Lung cancer with pneumonia and pulmonary embolism. FINDINGS: A single view of the chest shows an enlarged but stable cardiomediastinal silhouette. There are diff use mixed alveolar/interstitial opacities. The alveolar component of the infiltrates may have worsen ed compared to the prior radiograph. There appears to be a left-sided chest tube. IMPRESSION: Worsening multifocal infiltrates. POS: CET
--- NOTE | 2019-06-11 09:26 | ULT ---
VENOUS DUPLEX SONOGRAM BILATERAL LOWER EXTREMITIES: HISTORY: Bilateral leg pain and edema. FINDINGS: Each common femoral vein and greater saphenous junction were evaluated along with each femoral, deep femoral, popliteal, and posterior tibial vein. There is good color and spectral Doppler flow, compre ssion, and augmentation. IMPRESSION: No sonographic evidence of deep vein thrombosis within either lower extremity. POS: TPC
[2019-06-11] MEDS: Famotidine/PF 20 mg/2ml Vial SLOW IVP SCH ×2 (09:57→19:47)
[2019-06-11] MEDS: Vancomycin HCl 1 GM in Premix Bag 1 BAG IVPB SCH ×2 (09:57→19:46)
[2019-06-11] MEDS: Enoxaparin Sodium 60 MG/0.6 ML SYRINGE SC SCH ×2 (09:58→19:46)
[2019-06-11] MEDS: methylPREDNISolone Sod Succ 40 MG VIAL IVP SCH ×3 (10:04→23:04)
--- NOTE | 2019-06-11 11:26 | PDOC.HOSPP ---
- Subjective Encounter Date: 06/11/19 Encounter Time: 11:20 Subjective: f/u for PNA, Resp failure, R-sided PE and DONLEL lung CA on BiPAP. Continues on Cefepime/Vancomycin/Levaquin. Pt feels a little better today and feels hungry. - Objective Vital Signs & Weight: Vital Signs (12 hours) Temp Pulse Resp Pulse Ox 06/11/19 10:39 98 20 91 L 06/11/19 08:39 91 15 92 L 06/11/19 08:00 97.4 F L 92 L 06/11/19 04:00 98.6 F 06/11/19 02:46 98 21 H 92 L 06/11/19 01:00 101.1 F H 06/11/19 00:01 106 H 21 H 92 L Weight Weight 130 lb 15.273 oz Most Recent Monitor Data Heart Rate from ECG 101 NIBP 107/67 NIBP BP-Mean 80 Respiration from ECG 33 SpO2 91 I&O: 06/10/19 06/11/19 06/12/19 06:59 06:59 06:59 Intake Total 566 100 Output Total 850 650 Balance -284 -550 Result Diagrams: 06/11/19 04:10 06/11/19 04:10 Additional Labs: Microbiology 06/10/19 17:22 Venous blood - Right Arm Blood Culture - Preliminary Specimen has been received and culture in progress. No Growth to date. 06/10/19 17:14 Venous blood - Left Arm Blood Culture - Preliminary Specimen has been received and culture in progress. No Growth to date. Laboratory Tests 06/10/19 06/10/19 06/10/19 17:22 17:22 17:22 WBC 19.4 H Plt Count 126 L Neutrophils % 87.7 H Neutrophils % (Manual) Sodium 126 L Troponin I 0.269 H Cortisol 06/10/19 06/10/19 06/11/19 20:19 23:50 04:10 WBC Plt Count Neutrophils % Neutrophils % (Manual) Sodium Troponin I 0.283 H 0.225 H Cortisol 12.60 06/11/19 04:10 WBC Plt Count Neutrophils % Neutrophils % (Manual) 85 H Sodium Troponin I Cortisol Radiology Reviewed by me: Yes (PCXR - worsening infiltrates, Bilat LE sono - neg for DVT) EKG Reviewed by me: Yes (Tele - Sinus tachycardia in low-100's) Hospitalist ASMITA - Medication Medications: Active Medications Generic Name Dose Route Start Last Admin Trade Name Thalia PRN Reason Stop Dose Admin Acetaminophen 1,000 mg 06/10/19 20:57 06/11/19 01:55 Tylenol PO 1,000 mg Q6H PRN Administration Mild Pain (1-3) Albumin Human 25 gm 06/11/19 07:34 06/11/19 07:55 Albumin 25% IVPB 06/11/19 12:00 25 gm NOW FARAZ Administration Enoxaparin Sodium 60 mg 06/11/19 09:00 06/11/19 09:58 Lovenox SC 60 mg 0900,2100 FARAZ Administration Famotidine 20 mg 06/10/19 21:00 06/11/19 09:57 Pepcid SLOW IVP 20 mg Q12HR FARAZ Administration Cefepime HCl 2 gm/ Sodium 100 mls @ 200 mls/hr 06/11/19 06:00 06/11/19 06:12 Chloride IVPB 100 mls 0600,1800 FARAZ Administration Sodium Chloride 1,000 mls @ 65 mls/hr 06/10/19 20:57 06/10/19 23:42 Normal Saline 0.9% IV 1,000 mls .[id number] FARAZ Administration Vancomycin HCl 1 gm/ Device 200 mls @ 200 mls/hr 06/11/19 08:00 06/11/19 09: 57 IVPB 200 mls 0800,2000 FARAZ Administration Levofloxacin 750 mg/ Device 150 mls @ 100 mls/hr 06/11/19 07:30 06/11/19 09: 52 IVPB 150 mls Q24HR FARAZ Administration Ivabradine 5 mg 06/10/19 21:00 06/10/19 23:45 Corlanor PO 5 mg BID FARAZ Administration Methylprednisolone Sodium Succinate 40 mg 06/11/19 12:00 06/11/19 10:04 Solu-Medrol IVP 40 mg Q6HR FARAZ Administration - Exam General Appearance: awake alert General - other findings: answers questions, BiPAP FM in place Eye: PERRL, anicteric sclera ENT: normocephalic atraumatic, no oropharyngeal lesions Neck: supple, symmetric, no JVD, no thyromegaly Heart: no murmur, no gallops, no rubs, normal peripheral pulses Heart - other findings: tachycardic Respiratory - other findings: diminished in R field, few scattered coarse sounds Gastrointestinal: soft, non-tender, non-distended, normal bowel sounds, no palpable masses Extremities: no cyanosis, 1+ LE edema Skin: normal turgor, no lesions Neurological: cranial nerve grossly intact, no new deficit Musculoskeletal: normal tone, generalized weakness Psychiatric: normal affect, A&O x 3 Hosp A/P (1) Severe sepsis Code(s): A41.9 - SEPSIS, UNSPECIFIED ORGANISM; R65.20 - SEVERE SEPSIS WITHOUT SEPTIC SHOCK Status: Acute Plan: Continue IV Cefepime/Vancomycin/Levaquin, suspect due to R-sided PNA, continue supportive mgmt (2) Acute respiratory failure with hypoxia Code(s): J96.01 - ACUTE RESPIRATORY FAILURE WITH HYPOXIA Status: Acute Plan: Continue BiPAP NIMV, titrate to clinical response, aggressive pulmonary support , Solumedrol, Duonebs (3) Metastatic lung cancer (metastasis from lung to other site) Code(s): C34.90 - MALIGNANT NEOPLASM OF UNSP PART OF UNSP BRONCHUS OR LUNG Status: Chronic Qualifiers: Laterality: left Qualified Code(s): C34.92 - Malignant neoplasm of unspecified part of left bronchus or lung Plan: Medical oncology follow up after d/c for initiation of treatment (4) HCAP (healthcare-associated pneumonia) Code(s): J18.9 - PNEUMONIA, UNSPECIFIED ORGANISM Status: Acute Plan: Continue Cefepime/Vancomycin/Levaquin, blood cx pending (5) Pulmonary embolism Code(s): I26.99 - OTHER PULMONARY EMBOLISM WITHOUT ACUTE COR PULMONALE Status : Acute Plan: Continue Lovenox 60mg sc BID (6) Hyponatremia Code(s): E87.1 - HYPO-OSMOLALITY AND HYPONATREMIA Status: Acute Plan: Improved, serial Na+, likely volume overloaded, improving - Plan plan discussed w/ family, continue antibiotics, transition social worker, respiratory therapy, DVT proph w/SCDs Continue critical support Continue BiPAP NIMV and wean as clinically indicated Continue Cefepime/Vancomycin/Levaquin Continue Lovenox 60mg sc BID Resume home Xanax AM lab: CMP, CBC
[2019-06-11] MEDS: Lorazepam 2 MG/ML VIAL SLOW IVP PRN (13:14)
[2019-06-11] MEDS: Sodium Chloride 0.9% 1,000 ML IV SCH (17:36)
[2019-06-11] MEDS: Ivabradine 5 MG TAB PO SCH (19:46)
[2019-06-11] MEDS ORDERED: ALPRAZolam 0.25 MG TAB PO SCH (21:00)
--- NOTE | 2019-06-12 00:31 | CON ---
DATE OF CONSULTATION: 06/11/2019 REASON FOR CONSULTATION: Possible sepsis. HISTORY OF PRESENT ILLNESS: A 64-year-old patient, history of lung adenocarcinoma who has a history of brain mets and was treated with some form of immunotherapy at the beginning of the year reportedly. The patient had malignant pleural effusion and bone and brain mets as well. She had therapy targeted to the mutation that she presented with endothelial growth factor receptor. She showed initial excellent response but then progressed in April and had a new biopsy which showed adenocarcinoma. Further treatment after options are being considered at this moment. She had a PleurX catheter placed and developed dyspnea, was diagnosed with pulmonary embolism. She was transferred to the ICU and she is on broad-spectrum antimicrobial coverage as well as on Lovenox at therapeutic dose. Currently, patient is on BiPAP mask. She denies headaches. She has moderate dyspnea. No chest pain, maybe a little bit at the site of the catheter. No abdominal pain, and she is voiding in the urinal. PAST MEDICAL HISTORY: Stage IV adenocarcinoma of lung with failure after treatment with EGFR receptor inhibitor, history of hypertension, hyperlipidemia, anxiety, depression, and skin cancer. PAST SURGICAL HISTORY: , thoracentesis, PleurX catheter placement, and biopsies. ALLERGIES: PENICILLIN, SULFA, AND TETRACYCLINE. MEDICATIONS: Home medications, had been on Tagrisso which is a third generation epidermal growth factor receptor tyrosine kinase inhibitor, clonazepam, Xanax, and Toprol. She is currently also on cefepime and levofloxacin. FAMILY HISTORY: Breast cancer. SOCIAL HISTORY: . She is originally from [place] and has 2 children. Lives with spouse. Positive history of smoking in the past. PHYSICAL EXAMINATION: VITAL SIGNS: T-max 101, she is now 97.7; BP 106/67; pulse 108; respirations 25 ; and O2 saturation 94% to 95%. GENERAL: She is tachypneic with a BiPAP mask. She is able to communicate verbally though. She understands spoken word. Follows commands. HEENT: Ocular movements are conjugate. Sclerae white. Oral cavity somewhat dry. LUNGS: With diminished breath sounds in the left side. Coarse breath sounds. CARDIOVASCULAR: Otherwise, S1, S2. Regular rate. ABDOMEN: Soft, nondistended. No bladder distention. EXTREMITIES: No joint inflammatory activity. Moves all extremities equally. No edema. Plantar responses are flexor. NEUROLOGIC: She seems to under stand my questions and follows commands. LABORATORY DATA: White cell count is 19.4 and 19.1, hemoglobin 13, platelets 126 with 85% neutrophils, 11% bands. PH 7.5, pCO2 of 29, and PO2 of 62. Sodium 129 , creatinine 0.66. Liver profile normal. BNP 418. Albumin 2.2. Urinalysis was normal. Microbiology with negative blood cultures thus far. Urine culture, no growth. Previous Clostridium difficile from a few days ago in the stool was negative for both antigen and toxin. CT chest angiogram with pulmonary thromboembolism involving branches of right middle lobe pulmonary artery, so the clot is in the first or second order branch of right middle lobe pulmonary artery and more peripheral branches of this as well. She had a previous CTA done about a week before which showed no evidence of pulmonary emboli and total consolidation of left upper lobe. ASSESSMENT: 1. Stage IV lung cancer adenocarcinoma with brain and bone metastases and extensive lung involvement. 2. Pulmonary embolism. DISCUSSION: The differential diagnosis includes pulmonary findings secondary to lung cancer plus pulmonary embolism with lung infarction versus superimposed infection. It is possible that she only has the embolism and malignancy and no superimposed infectious process. For practical purposes, the patient will need to continue broad-spectrum antimicrobial coverage at least for a relatively short period of time with an alternate management option for her metastatic cancer. Job ID: [id number] [facility] HOSPITALMiguelito
[2019-06-12] MEDS: Sodium Chloride 0.9% 1,000 ML IV SCH ×2 (03:22→13:01)
[2019-06-12] MEDS: methylPREDNISolone Sod Succ 40 MG VIAL IVP SCH ×4 (05:03→23:17)
[2019-06-12] MEDS: Cefepime 2 GM in Sodium Chloride 0.9% 100 ML IVPB SCH ×2 (05:03→19:20)
[2019-06-12 05:48] LABS: Band 5 % (5-11); Hemoglobin 11.8 g/dL (12.0-16.0); MDiff Complete? YES; Mean Corpuscular HGB CONC 33.1 g/dL (32.0-36.0); Mean Corpuscular Volume 84.5 fL (78.0-98.0); Mean Platelet Volume 8.2 fL (7.4-10.4); Monocytes 4 % (0-10); Neutrophil 91 % (42-75); Platelet Count 172 thou/uL (130-400); RBC Distribution Width 12.6 % (11.5-14.5); Red Blood Cell (RBC) Count 4.23 mill/uL (4.20-5.40); White Blood Cell (WBC) Count 15.7 thou/uL (4.8-10.8)
[2019-06-12 05:54] LABS: ALT (SGPT) 14 U/L (8-55); AST (SGOT) 12 U/L (5-34); Albumin 2.7 g/dL (3.4-4.8); Alkaline Phosphatase 52 U/L (40-110); Anion Gap 12 mmol/L (10-20); BUN (Urea Nitrogen) 16 mg/dL (9.8-20.1); Bilirubin, Total 0.3 mg/dL (0.2-1.2); Calc. Creatinine Clearance 83 mL/min (70-130); Calcium 8.1 mg/dL (7.8-10.44); Carbon Dioxide 29 mmol/L (23-31); Chloride 99 mmol/L (98-107); Estimated GFR-MDRD Greater than 90; Globulin 2.5 g/dL (2.4-3.5); Glucose 129 mg/dL (80-115); Potassium 4.6 mmol/L (3.5-5.1); Protein, Total 5.2 g/dL (6.0-8.3); Sodium 135 mmol/L (136-145)
[2019-06-12 07:43] LABS: Vancomycin, Trough 12.5 ug/mL
[2019-06-12] MEDS ORDERED: [UNRECOGNIZED DRUG - REMARK] IVPB PRN (07:49)
--- NOTE | 2019-06-12 08:31 | PDOC.MOPN ---
Interval History: Pt feeling better today, still SOB. On BiPAP. Her only complaint is that she wants to eat and drink and take the mask off. - Vital Signs Vital Signs: Vital Signs (12 hours) Temp Pulse Resp Pulse Ox 06/12/19 03:00 98.2 F 06/12/19 02:25 92 25 H 94 L 06/11/19 23:00 98.4 F 06/11/19 21:42 90 22 H 96 Weight Admit Weight 130 lb 15.273 oz Weight 130 lb 15.273 oz Most Recent Monitor Data Heart Rate from ECG 98 NIBP 128/80 NIBP BP-Mean 96 Respiration from ECG 23 SpO2 94 - Physical Exam General: Alert, Oriented x3, Cooperative Lungs: Other (diffuse rhoncourous BS, reduced BS on left) Cardiovascular: Normal S1, Normal S2, Other (tachy) Abdomen: Soft, No tenderness Extremities: Other (2+ edema B/L/LE) Skin: No rashes Neurological: Cranial nerves 3-12 NL Psych/Mental Status: Other (anxious) - Labs Result Diagrams: 06/12/19 05:16 06/12/19 05:16 Lab results: Laboratory Results - last 24 hr 06/12/19 06:51: Vancomycin Trough 12.5 06/12/19 05:16: WBC 15.7 H, RBC 4.23, Hgb 11.8 L, Hct 35.7 L, MCV 84.5, MCH 28.0 , MCHC 33.1, RDW 12.6, Plt Count 172, MPV 8.2, Neutrophils % (Manual) 91 H, Band Neuts % (Manual) 5, Monocytes % (Manual) 4 06/12/19 05:16: Sodium 135 L, Potassium 4.6, Chloride 99, Carbon Dioxide 29, Anion Gap 12, BUN 16, Creatinine 0.66, Estimated GFR (MDRD) Greater than 90, Glucose 129 H, Calcium 8.1, Total Bilirubin 0.3, AST 12, ALT 14, Alkaline Phosphatase 52, Serum Total Protein 5.2 L, Albumin 2.7 L, Globulin 2.5, Albumin/ Globulin Ratio 1.1 L A/P - Problem (1) HCAP (healthcare-associated pneumonia) Current Visit: Yes Code(s): J18.9 - PNEUMONIA, UNSPECIFIED ORGANISM Status: Acute (2) Pulmonary embolism Current Visit: Yes Code(s): I26.99 - OTHER PULMONARY EMBOLISM WITHOUT ACUTE COR PULMONALE Status: Acute (3) Malignant pleural effusion Current Visit: No Code(s): J91.0 - MALIGNANT PLEURAL EFFUSION Status: Chronic (4) Metastatic lung cancer (metastasis from lung to other site) Current Visit: No Code(s): C34.90 - MALIGNANT NEOPLASM OF UNSP PART OF UNSP BRONCHUS OR LUNG Status: Chronic Qualifiers: Laterality: left Qualified Code(s): C34.92 - Malignant neoplasm of unspecified part of left bronchus or lung - Plan Plan: cont antibiotics cont Lovenox, plan to change to DOAC at discharge cont BiPAP as directed by pulmonology and titrate off as indicated palliative care consult - if she improves with current therapy then she is still a candidate for chemoimmunotherapy
[2019-06-12] MEDS: Ivabradine 5 MG TAB PO SCH ×4 (08:32→19:59)
[2019-06-12] MEDS: Famotidine/PF 20 mg/2ml Vial SLOW IVP SCH ×2 (08:41→19:58)
[2019-06-12] MEDS: Vancomycin HCl 1.25 GM in Sodium Chloride 0.9% 250 ML 250 ML IVPB SCH ×2 (08:41→19:58)
[2019-06-12] MEDS: Enoxaparin Sodium 60 MG/0.6 ML SYRINGE SC SCH ×2 (08:41→19:58)
--- NOTE | 2019-06-12 08:50 | PRG ---
DATE OF SERVICE: 06/12/2019 A 35 minutes of critical care time. SUBJECTIVE: Eufemia remains on BiPAP. She seems fairly depressed. OBJECTIVE: VITAL SIGNS: Temperature is 98.2, pulse 94, blood pressure 126/69, and O2 saturation 98%. HEENT: Unremarkable. NECK: No JVD. LUNGS: She has diffuse crackles on the right compared to left. CARDIAC: S1 and S2. Tachycardic. ABDOMEN: Soft. EXTREMITIES: No edema. LABORATORY DATA: White blood cell count 15.7, hematocrit 35.7, and platelet count 172. Sodium 135, potassium 4.6, chloride 99, CO2 of 29, BUN 16, creatinine 0.6, and glucose 129. ASSESSMENT: 1. Lung cancer. 2. Malignant left pleural effusion requiring intermittent PleurX catheter drainage. 3. Right-sided pneumonia versus metastatic cancer. 4. Pulmonary embolism. PLAN: 1. Continue BiPAP, she did not last long off BiPAP this morning for demonstrating severe desaturation. 2. Continue anticoagulation with Lovenox. 3. Continue broad-spectrum IV antibiotics. 4. Overall prognosis is extremely poor. I will speak with the when he arrives. Job ID: [id number]
[2019-06-12] MEDS: Lorazepam 2 MG/ML VIAL SLOW IVP PRN (11:55)
--- NOTE | 2019-06-12 12:01 | CON ---
DATE OF CONSULTATION: 06/11/2019 REASON FOR CONSULTATION: Lung cancer. HISTORY OF PRESENT ILLNESS: A 64-year-old female, originally from [place] with stage IV adenocarcinoma of the left upper lobe with malignant pleural effusion, bone and brain metastases, status post treatment with Tagrisso for EGFR mutation with recent progression of disease in lung and liver, was seen in clinic today for second-line chemotherapy. However, this could not be given as she was severely short of breath. Of note, she was admitted for shortness of breath last week and discharged. On presentation to the clinic, was severely fluid overloaded and short of breath, saturating in the 80s and up to 93% on 6 L by mask in the clinic. She is very fatigued and losing weight as well. She is in a wheelchair and is unable to walk and can barely move her legs due to the fluid overload. On arrival to the hospital, she had a CT angio of the chest, which showed a pulmonary embolism and a right middle lobe pulmonary artery and worsening of infiltrates in right lower lobe, right upper lobe, and potential right-sided pneumonia along with a loculated left pleural effusion along with her known lung cancer. She was admitted to the medical ICU and placed on BiPAP. REVIEW OF SYSTEMS: Ten-point review of systems negative except as per HPI. PAST MEDICAL HISTORY: Lung cancer, hypertension, severe anxiety, and high cholesterol. PAST SURGICAL HISTORY: and PleurX catheter placement. CURRENT MEDICATIONS: Reviewed. ALLERGIES: ANTIHISTAMINES, IBUPROFEN, NSAIDS, PENICILLIN, SULFA, AND TETRACYCLINES. FAMILY HISTORY: Heart disease. SOCIAL HISTORY: . Former smoker, quit more than 30 years ago. PHYSICAL EXAMINATION: VITAL SIGNS: Blood pressure 116/69, pulse 104, respirations 38, temperature 98.2, saturating 87% on 6 L by face mask on arrival in the ER. GENERAL APPEARANCE: The patient is lying in bed in respiratory distress and appears ill. NECK: Supple. No JVD. CARDIAC: S1 and S2. Tachycardic. LUNGS: Diminished breath sounds bilaterally, left worse than right. BiPAP is in place. ABDOMEN: Soft, nondistended, nontender. EXTREMITIES: 3+ edema bilaterally in the lower extremities. NEUROLOGIC: Cranial nerves 2 through 12 are grossly intact. The patient is able to move all extremities. LABORATORY DATA: White blood cells 19.1, hemoglobin 11.6, platelets 128. Sodium 129, potassium 3.7, chloride 94, BUN 12, creatinine 0.66. Troponin peaked at 0.283. Lactic acid 1.4. BNP 418.4. IMAGING DATA: CT angio of the chest shows a right middle lobe pulmonary artery, pulmonary thromboembolism, and worsening of infiltrates in right side of the lung with potential pneumonia and a loculated left pleural effusion. ASSESSMENT AND PLAN: A 64-year-old female with stage IV adenocarcinoma of the left upper lobe with malignant pleural effusion, status post PleurX with bone and brain metastases, status post treatment with Tagrisso with initial very good response, recently followed by progression due to start second-line chemotherapy, which has been placed on hold due to acute respiratory distress and very poor performance status. Recommend continuing BiPAP and titrating as possible and hopefully avoiding intubation. Would continue antibiotics for now. Unsure if her picture is due to additional pneumonia or just lung cancer and her pulmonary embolism. Blood pressures have been continuous in the ICU, so recommend caution with diuretics. However, she does need this due to her severe fluid overload. I discussed potential intubation with the patient and she does want this if necessary. We will follow along closely with you. Thank you for the consult. Job ID: [id number]
--- NOTE | 2019-06-12 13:19 | PDOC.PALCO ---
Palliative Care Consult - Consult Details Requesting Physician: Dr Hood Reason for Consult: goals of care, advance directives assistance, family support Family Members Present: , family friend, son - Pertinent HPI Patient diagnoised with cancer in Sep 2018 as per . Was following up at the cancer clinic from recent hospitalization and sent to the emergency room for evaluation and admitted for right pulmonary embolus, sepsis. Palliative care consult for goals of care and family support - Pertinent PMH Adenocarcinoma of the lung, left lobe, hypertension, Malignant pleural effusion , anxiety - Social History Smoking Status: Former smoker Smoking: quit greater than 1 year Alcohol Use: none Drug Use History: none Living Situation: ( to spouse for 33 years) - Allergies Allergies/Adverse Reactions: Allergies Allergy/AdvReac Type Severity Reaction Status Date / Time Antihistamines - Alkylamine Allergy Verified 06/10/19 22:11 caffeine Allergy Verified 06/10/19 22:11 ibuprofen Allergy Verified 06/10/19 22:11 NSAIDS (Non-Steroidal Allergy Verified 06/10/19 22:11 Anti-Inflamma Penicillins Allergy Verified 06/10/19 22:11 Sulfa (Sulfonamide Allergy Verified 06/10/19 22:11 Antibiotics) Tetracyclines Allergy Verified 06/10/19 22:11 - Subjective Bipap in place, awake alert, labored respirations. states dry oral mucous membranes, denies pain, requesting to drink. ROS: 10 point review Negative with the exception of above - Objective Vital Signs: Vital Signs - Most Recent Temp Pulse Resp BP Pulse Ox 98.5 F 94 31 H 94 L 06/12/19 12:00 06/12/19 10:58 06/12/19 10:58 06/12/19 10:58 Palliative Performance Scale: 40 - Physical Exam Constitutional: mild distress HEENT: PERRLA, moist MMs, EOMI Deviation from normal: Diiminshed left, adventicious to right. Labored respirations Cardiovascular: RRR Deviation from normal: mildly elevated hr, Gastrointestinal: soft, non-tender, positive bowel sounds Musculoskeletal: pulses present, edema present Neurological: moves all 4 limbs Psychiatric: A&O x 3 Deviation from normal: anxious Deviation from normal: Pallor, delayed cap refill to feet bilaterally - Problem List (1) Palliative care encounter Code(s): Z51.5 - ENCOUNTER FOR PALLIATIVE CARE Current Visit: Yes Status: Acute (2) Anxiety Code(s): F41.9 - ANXIETY DISORDER, UNSPECIFIED Current Visit: No Status: Chronic (3) Malignant pleural effusion Code(s): J91.0 - MALIGNANT PLEURAL EFFUSION Current Visit: No Status: Chronic (4) Metastatic lung cancer (metastasis from lung to other site) Code(s): C34.90 - MALIGNANT NEOPLASM OF UNSP PART OF UNSP BRONCHUS OR LUNG Current Visit: No Status: Chronic Qualifiers: Laterality: left Qualified Code(s): C34.92 - Malignant neoplasm of unspecified part of left bronchus or lung - Plan/Recommendations Plan: Visited with patient and to discuss goals of care. *Wishes to NOT be intubated but cardiac resuscitation measures *Moisturizer for mouth to improve dry mouth *Change diet to full liquid *patient wishes to improve to attempt/initiate next round of chemo with Dr Hood Palliative Care will continue to follow to provide family support and facilitate goals of care as identified by patient. [60] minutes spent on this encounter with >50% of the time in counseling and coordination of care. Thank you for this very appropriate consult.
--- NOTE | 2019-06-12 17:30 | PDOC.HOSPP ---
- Subjective Encounter Date: 06/12/19 Encounter Time: 17:25 Subjective: f/u for resp failure due to PNA, PE and lung CA. Off BiPAP using high flow NC. Feels a little better today. Eating small amounts of soft diet. - Objective Vital Signs & Weight: Vital Signs (12 hours) Temp Pulse Resp Pulse Ox 06/12/19 15:22 92 L 06/12/19 12:00 98.5 F 06/12/19 10:58 94 31 H 94 L 06/12/19 08:15 95 30 H 95 06/12/19 08:00 97.9 F 94 L Weight Admit Weight 130 lb 15.273 oz Weight 130 lb 15.273 oz Most Recent Monitor Data Heart Rate from ECG 112 NIBP 129/74 NIBP BP-Mean 92 Respiration from ECG 36 SpO2 92 I&O: 06/11/19 06/12/19 06/13/19 06:59 06:59 06:59 Intake Total 566 1027 Output Total 850 1600 400 Balance -504 -105 -703 Result Diagrams: 06/12/19 05:16 06/12/19 05:16 Additional Labs: Microbiology 06/10/19 17:22 Venous blood - Right Arm Blood Culture - Preliminary Specimen has been received and culture in progress. No Growth to date. 06/10/19 17:14 Venous blood - Left Arm Blood Culture - Preliminary Specimen has been received and culture in progress. No Growth to date. Laboratory Tests 06/10/19 06/10/19 06/10/19 17:22 17:22 17:22 WBC 19.4 H Plt Count 126 L Neutrophils % 87.7 H Neutrophils % (Manual) Sodium 126 L Troponin I 0.269 H Cortisol 06/10/19 06/10/19 06/11/19 20:19 23:50 04:10 WBC Plt Count Neutrophils % Neutrophils % (Manual) Sodium Troponin I 0.283 H 0.225 H Cortisol 12.60 06/11/19 04:10 WBC Plt Count Neutrophils % Neutrophils % (Manual) 85 H Sodium Troponin I Cortisol Radiology Reviewed by me: Yes (Echo - EF 55-60%) EKG Reviewed by me: Yes (Tele - Sinus tachycardia) Hospitalist ROS - Medication Medications: Active Medications Generic Name Dose Route Start Last Admin Trade Name Freq PRN Reason Stop Dose Admin Acetaminophen 1,000 mg 06/10/19 20:57 06/11/19 01:55 Tylenol PO 1,000 mg Q6H PRN Administration Mild Pain (1-3) Enoxaparin Sodium 60 mg 06/11/19 09:00 06/12/19 08:41 Lovenox SC 60 mg 0900,2100 FARAZ Administration Famotidine 20 mg 06/10/19 21:00 06/12/19 08:41 Pepcid SLOW IVP 20 mg Q12HR FARAZ Administration Cefepime HCl 2 gm/ Sodium 100 mls @ 200 mls/hr 06/11/19 06:00 06/12/19 05:03 Chloride IVPB 100 mls 0600,1800 FARAZ Administration Sodium Chloride 1,000 mls @ 65 mls/hr 06/10/19 20:57 06/12/19 13:01 Normal Saline 0.9% IV 1,000 mls .[id number] FARAZ Administration Levofloxacin 750 mg/ Device 150 mls @ 100 mls/hr 06/11/19 07:30 06/12/19 08: 40 IVPB 150 mls Q24HR FARAZ Administration Vancomycin HCl 1.25 gm/ Sodium 250 mls @ 250 mls/hr 06/12/19 08:00 06/12/19 08:41 Chloride IVPB 250 mls 0800,2000 FARAZ Administration Ivabradine 5 mg 06/10/19 21:00 06/12/19 11:38 Corlanor PO 5 mg BID FARAZ Administration Methylprednisolone Sodium Succinate 40 mg 06/11/19 12:00 06/12/19 12:57 Solu-Medrol IVP 40 mg Q6HR FARAZ Administration - Exam General Appearance: awake alert, ill appearing General - other findings: Responds to questions Eye: PERRL, anicteric sclera ENT: normocephalic atraumatic, no oropharyngeal lesions Neck: supple, symmetric, no JVD, no thyromegaly Heart: no gallops, no rubs, normal peripheral pulses Heart - other findings: tachycardic Respiratory - other findings: diminished in L hemithorax, coarse sounds R hemithorax Gastrointestinal: soft, non-tender, non-distended, normal bowel sounds, no palpable masses, no hepatomegaly Extremities: no cyanosis, no clubbing, no edema Skin: normal turgor, no lesions Neurological: cranial nerve grossly intact, no new deficit Musculoskeletal: normal tone, generalized weakness Psychiatric: normal affect, A&O x 3 Hosp A/P (1) Severe sepsis Code(s): A41.9 - SEPSIS, UNSPECIFIED ORGANISM; R65.20 - SEVERE SEPSIS WITHOUT SEPTIC SHOCK Status: Acute Plan: Continue current IV abx regimen (2) Acute respiratory failure with hypoxia Code(s): J96.01 - ACUTE RESPIRATORY FAILURE WITH HYPOXIA Status: Acute Plan: Transitioned to high-flow NC, pulmonary support, Solumedrol (3) Metastatic lung cancer (metastasis from lung to other site) Code(s): C34.90 - MALIGNANT NEOPLASM OF UNSP PART OF UNSP BRONCHUS OR LUNG Status: Chronic Qualifiers: Laterality: left Qualified Code(s): C34.92 - Malignant neoplasm of unspecified part of left bronchus or lung Plan: Tentative plans for chemoimmunotherapy after d/c (4) HCAP (healthcare-associated pneumonia) Code(s): J18.9 - PNEUMONIA, UNSPECIFIED ORGANISM Status: Acute Plan: Continue Vanc/Cefepime/Levaquin (5) Pulmonary embolism Code(s): I26.99 - OTHER PULMONARY EMBOLISM WITHOUT ACUTE COR PULMONALE Status : Acute (6) Hyponatremia Code(s): E87.1 - HYPO-OSMOLALITY AND HYPONATREMIA Status: Acute - Plan plan discussed w/ family, continue antibiotics, PT/OT, social media content specialist, respiratory therapy Continue critical support Transitioned to high-flow NC Continue Cefepime/Vancomycin/Levaquin Continue Lovenox 60mg sc BID, OAC for d/c Resume home Xanax 0.25mg po q8h AM lab: CMP, CBC
[2019-06-12] MEDS: ALPRAZolam 0.25 MG TAB PO SCH (20:07)
[2019-06-13] MEDS: Sodium Chloride 0.9% 1,000 ML IV SCH ×2 (03:59→10:26)
[2019-06-13] MEDS: ALPRAZolam 0.25 MG TAB PO SCH ×3 (05:06→21:30)
[2019-06-13] MEDS: Cefepime 2 GM in Sodium Chloride 0.9% 100 ML IVPB SCH ×2 (05:06→17:31)
[2019-06-13] MEDS: methylPREDNISolone Sod Succ 40 MG VIAL IVP SCH ×3 (05:06→17:31)
[2019-06-13 06:16] LABS: Anion Gap 10 mmol/L (10-20); BUN (Urea Nitrogen) 25 mg/dL (9.8-20.1); Calc. Creatinine Clearance 86 mL/min (70-130); Calcium 8.3 mg/dL (7.8-10.44); Carbon Dioxide 29 mmol/L (23-31); Chloride 103 mmol/L (98-107); Estimated GFR-MDRD Greater than 90; Glucose 152 mg/dL (80-115); Potassium 4.7 mmol/L (3.5-5.1); Sodium 137 mmol/L (136-145)
[2019-06-13 06:35] LABS: Hemoglobin 11.7 g/dL (12.0-16.0); Mean Corpuscular HGB CONC 33.2 g/dL (32.0-36.0); Mean Corpuscular Volume 84.4 fL (78.0-98.0); Mean Platelet Volume 7.8 fL (7.4-10.4); Platelet Count 208 thou/uL (130-400); RBC Distribution Width 12.7 % (11.5-14.5); Red Blood Cell (RBC) Count 4.19 mill/uL (4.20-5.40); White Blood Cell (WBC) Count 21.6 thou/uL (4.8-10.8)
[2019-06-13 06:48] LABS: Band 13 % (5-11); Lymphocytes 1 % (21-51); MDiff Complete? YES; Monocytes 3 % (0-10); Neutrophil 83 % (42-75); Platelet Morphology Comment Appears Adequate
[2019-06-13] MEDS: Vancomycin HCl 1.25 GM in Sodium Chloride 0.9% 250 ML 250 ML IVPB SCH ×2 (07:53→21:28)
[2019-06-13] MEDS: Enoxaparin Sodium 60 MG/0.6 ML SYRINGE SC SCH ×2 (07:53→21:28)
[2019-06-13] MEDS: Famotidine/PF 20 mg/2ml Vial SLOW IVP SCH (07:53)
--- NOTE | 2019-06-13 09:52 | PRG ---
DATE OF SERVICE: 06/13/2019 SUBJECTIVE: Eufemia continues on high-flow oxygen. She is extremely dyspneic even at rest. OBJECTIVE: VITAL SIGNS: Temperature 98.9, pulse 103, blood pressure 137/81, and O2 saturations were running from the high 80s to low 90s. A 24-hour intake 2188 and output 1000. HEENT: Unremarkable. NECK: No JVD. LUNGS: She has coarse breath sounds bilaterally, but no dullness at the bases. CARDIAC: S1 and S2. Slightly tachycardic. ABDOMEN: Soft. EXTREMITIES: No edema. LABORATORY DATA: White blood cell count 21.6, hematocrit 35.3, and platelet count 208. Sodium 137, potassium 4.7, chloride 103, CO2 of 29, BUN 25, creatinine 0.7, and glucose 152. ASSESSMENT: 1. Metastatic lung cancer. 2. Right upper lobe pneumonia versus tumor spread. 3. History of left malignant pleural effusion. 4. Pulmonary embolism. PLAN: 1. Continue the Lovenox. 2. Continue IV antibiotics. 3. Drain the left pleural effusion today into a PleurX bottle. 4. Continue anticoagulation. 5. Continue steroids. 6. Prognosis is very poor. Job ID: [id number]
--- NOTE | 2019-06-13 10:55 | PDOC.MOPN ---
Interval History: Sitting in chair, breathing better today. - Vital Signs Vital Signs: Vital Signs (12 hours) Temp Pulse Ox 06/13/19 03:00 98.9 F 06/13/19 02:16 96 06/12/19 23:00 98.3 F Weight Admit Weight 130 lb 15.273 oz Weight 134 lb 0.657 oz Most Recent Monitor Data Heart Rate from ECG 103 NIBP 137/81 NIBP BP-Mean 99 Respiration from ECG 28 SpO2 94 - Physical Exam General: Alert, Oriented x3, No acute distress HEENT: Atraumatic, PERRLA, EOMI, Mucous membr. moist/pink Lungs: Other (pleurx cath, drained today. 650ml) Cardiovascular: Regular rate, Normal S1, Normal S2, No murmurs, Gallops, Rubs Abdomen: Normal bowel sounds, Soft, No tenderness, No hepatospenomegaly, No masses Extremities: No clubbing, No cyanosis, No edema, Normal pulses, No tenderness/ swelling Skin: No rashes, No breakdown, No significant lesion Neurological: Normal gait, Normal speech, Strength at 5/5 X4 ext, Normal tone, Sensation intact, Cranial nerves 3-12 NL, Reflexes 2+ Psych/Mental Status: Mental status NL, Mood NL - Labs Result Diagrams: 06/13/19 05:46 06/13/19 05:46 Lab results: Laboratory Results - last 24 hr 06/13/19 05:46: WBC 21.6 H, RBC 4.19 L, Hgb 11.7 L, Hct 35.3 L, MCV 84.4, MCH 28.0, MCHC 33.2, RDW 12.7, Plt Count 208, MPV 7.8, Neutrophils % (Manual) 83 H, Band Neuts % (Manual) 13 H, Lymphocytes % (Manual) 1 L, Monocytes % (Manual) 3, Neutrophils # Not Reportable, Lymphocytes # Not Reportable, Plt Morphology Comment Appears Adequate 06/13/19 05:46: Sodium 137, Potassium 4.7, Chloride 103, Carbon Dioxide 29, Anion Gap 10, BUN 25 H, Creatinine 0.65, Estimated GFR (MDRD) Greater than 90, Glucose 152 H, Calcium 8.3 Status: lab reviewed by me A/P - Problem (1) Acute respiratory failure with hypoxia Current Visit: No Code(s): J96.01 - ACUTE RESPIRATORY FAILURE WITH HYPOXIA Status: Acute (2) Pleural effusion Current Visit: No Code(s): J90 - PLEURAL EFFUSION, NOT ELSEWHERE CLASSIFIED Status: Acute (3) History of lung cancer Current Visit: No Code(s): Z85.118 - PERSONAL HISTORY OF MALIGNANT NEOPLASM OF BRONCHUS AND LUNG Status: Chronic - Plan Plan: cont antibiotics cont Lovenox, plan to change to DOAC at discharge cont BiPAP as directed by pulmonology and titrate off as indicated if she improves with current therapy then she is still a candidate for chemoimmunotherapy, discussed condition with spouse
--- NOTE | 2019-06-13 14:43 | PDOC.HOSPP ---
- Subjective Encounter Date: 06/13/19 Encounter Time: 14:40 Subjective: f/u for PE, PNA and metastatic lung CA remaining on high-flow O2 NC. Receiving Cefepime/Levaquin/Vancomycin and Lovenox. - Objective Vital Signs & Weight: Vital Signs (12 hours) Temp Pulse Ox 06/13/19 13:00 98.2 F 06/13/19 08:00 98.1 F 94 L 06/13/19 03:00 98.9 F Weight Admit Weight 130 lb 15.273 oz Weight 134 lb 0.657 oz Most Recent Monitor Data Heart Rate from ECG 100 NIBP 130/75 NIBP BP-Mean 93 Respiration from ECG 34 SpO2 100 I&O: 06/12/19 06/13/19 06/14/19 06:59 06:59 06:59 Intake Total 1027 2188 750 Output Total 1600 1000 925 Balance -573 1188 -175 Result Diagrams: 06/13/19 05:46 06/13/19 05:46 Additional Labs: Microbiology 06/10/19 17:22 Venous blood - Right Arm Blood Culture - Preliminary Specimen has been received and culture in progress. No Growth to date. 06/10/19 17:14 Venous blood - Left Arm Blood Culture - Preliminary Specimen has been received and culture in progress. No Growth to date. Laboratory Tests 06/10/19 06/10/19 06/10/19 17:22 17:22 17:22 WBC 19.4 H Plt Count 126 L Neutrophils % 87.7 H Neutrophils % (Manual) Sodium 126 L Troponin I 0.269 H Cortisol 06/10/19 06/10/19 06/11/19 20:19 23:50 04:10 WBC Plt Count Neutrophils % Neutrophils % (Manual) Sodium Troponin I 0.283 H 0.225 H Cortisol 12.60 06/11/19 04:10 WBC Plt Count Neutrophils % Neutrophils % (Manual) 85 H Sodium Troponin I Cortisol EKG Reviewed by me: Yes (Tele - Sinus tachycardia) Hospitalist ROS - Medication Medications: Active Medications Generic Name Dose Route Start Last Admin Trade Name Freq PRN Reason Stop Dose Admin Acetaminophen 1,000 mg 06/10/19 20:57 06/11/19 01:55 Tylenol PO 1,000 mg Q6H PRN Administration Mild Pain (1-3) Alprazolam 0.25 mg 06/12/19 22:00 06/13/19 14:15 Xanax PO 0.25 mg Q8HR FARAZ Administration Enoxaparin Sodium 60 mg 06/11/19 09:00 06/13/19 07:53 Lovenox SC 60 mg 0900,2100 FARAZ Administration Cefepime HCl 2 gm/ Sodium 100 mls @ 200 mls/hr 06/11/19 06:00 06/13/19 05:06 Chloride IVPB 100 mls 0600,1800 FARAZ Administration Sodium Chloride 1,000 mls @ 65 mls/hr 06/10/19 20:57 06/13/19 10:26 Normal Saline 0.9% IV Not Given .[id number] FARAZ Levofloxacin 750 mg/ Device 150 mls @ 100 mls/hr 06/11/19 07:30 06/13/19 07: 52 IVPB 150 mls Q24HR FARAZ Administration Vancomycin HCl 1.25 gm/ Sodium 250 mls @ 250 mls/hr 06/12/19 08:00 06/13/19 07:53 Chloride IVPB 250 mls 0800,2000 FARAZ Administration Ivabradine 5 mg 06/10/19 21:00 06/12/19 19:59 Corlanor PO 5 mg BID FARAZ Administration Methylprednisolone Sodium Succinate 40 mg 06/11/19 12:00 06/13/19 11:55 Solu-Medrol IVP 40 mg Q6HR FARAZ Administration - Exam General Appearance: awake alert, ill appearing Eye: PERRL, anicteric sclera ENT: normocephalic atraumatic, no oropharyngeal lesions Neck: supple, symmetric, no JVD, no thyromegaly, no lymphadenopathy Heart: no gallops, no rubs, normal peripheral pulses Heart - other findings: tachycardic Respiratory - other findings: diminished in bases, occasional rhonchi Gastrointestinal: soft, non-tender, non-distended, normal bowel sounds Extremities: no cyanosis, no clubbing, no edema Skin: normal turgor Neurological: cranial nerve grossly intact, no new deficit Musculoskeletal: normal tone, generalized weakness Psychiatric: normal affect, A&O x 3 Hosp A/P (1) Severe sepsis Code(s): A41.9 - SEPSIS, UNSPECIFIED ORGANISM; R65.20 - SEVERE SEPSIS WITHOUT SEPTIC SHOCK Status: Acute Plan: Resolving with IV abx therapy, continue triple coverage another 24h then de- escalate (2) Acute respiratory failure with hypoxia Code(s): J96.01 - ACUTE RESPIRATORY FAILURE WITH HYPOXIA Status: Acute Plan: Remains on high-flow O2 via NC, continue current therapy as pt unable to wean (3) Metastatic lung cancer (metastasis from lung to other site) Code(s): C34.90 - MALIGNANT NEOPLASM OF UNSP PART OF UNSP BRONCHUS OR LUNG Status: Chronic Qualifiers: Laterality: left Qualified Code(s): C34.92 - Malignant neoplasm of unspecified part of left bronchus or lung (4) HCAP (healthcare-associated pneumonia) Code(s): J18.9 - PNEUMONIA, UNSPECIFIED ORGANISM Status: Acute Plan: Continue Cefepime/Levaquin/Vancomycin, consider de-escalating coverage in the next 24h, pulmonary support, IV Solumedrol (5) Pulmonary embolism Code(s): I26.99 - OTHER PULMONARY EMBOLISM WITHOUT ACUTE COR PULMONALE Status : Acute Plan: R-sided involvement, continue Lovenox, consider OAC option for d/c (6) Hyponatremia Code(s): E87.1 - HYPO-OSMOLALITY AND HYPONATREMIA Status: Acute Plan: Resolving - Plan continue antibiotics, nephrology social worker, respiratory therapy, DVT proph w/SCDs Continue critical support Transitioned to high-flow NC Continue Cefepime/Vancomycin/Levaquin Continue Lovenox 60mg sc BID, OAC for d/c Resume home Xanax 0.25mg po q8h Pain control as clinically indicated AM lab: CMP, CBC
[2019-06-13 19:48] LABS: Vancomycin, Trough 19.9 ug/mL
[2019-06-13] MEDS: Ivabradine 5 MG TAB PO SCH (21:27)
[2019-06-13] MEDS: Famotidine 20 MG TAB PO SCH (21:27)
[2019-06-14] MEDS: methylPREDNISolone Sod Succ 40 MG VIAL IVP SCH ×4 (00:09→17:55)
[2019-06-14] MEDS: Sodium Chloride 0.9% 1,000 ML IV SCH ×3 (00:23→17:54)
[2019-06-14] MEDS: Cefepime 2 GM in Sodium Chloride 0.9% 100 ML IVPB SCH ×2 (05:22→17:54)
[2019-06-14] MEDS: ALPRAZolam 0.25 MG TAB PO SCH ×2 (05:22→13:31)
[2019-06-14 06:54] LABS: Hemoglobin 11.5 g/dL (12.0-16.0); Mean Corpuscular HGB CONC 32.8 g/dL (32.0-36.0); Mean Corpuscular Hemoglobin 27.6 pg (27.0-31.0); Mean Corpuscular Volume 84.3 fL (78.0-98.0); Mean Platelet Volume 8.5 fL (7.4-10.4); Platelet Count 199 thou/uL (130-400); RBC Distribution Width 12.7 % (11.5-14.5); Red Blood Cell (RBC) Count 4.17 mill/uL (4.20-5.40); White Blood Cell (WBC) Count 21.1 thou/uL (4.8-10.8)
[2019-06-14 07:14] LABS: Anion Gap 11 mmol/L (10-20); BUN (Urea Nitrogen) 22 mg/dL (9.8-20.1); Calc. Creatinine Clearance 92 mL/min (70-130); Calcium 8.1 mg/dL (7.8-10.44); Carbon Dioxide 26 mmol/L (23-31); Chloride 105 mmol/L (98-107); Estimated GFR-MDRD Greater than 90; Glucose 128 mg/dL (80-115); Potassium 4.3 mmol/L (3.5-5.1); Sodium 138 mmol/L (136-145)
[2019-06-14 07:17] LABS: Band 2 % (5-11); Lymphocytes 2 % (21-51); MDiff Complete? YES; Monocytes 2 % (0-10); Neutrophil 94 % (42-75); Platelet Morphology Comment Appears Adequate
--- NOTE | 2019-06-14 08:41 | PRG ---
DATE OF SERVICE: 06/14/2019 SUBJECTIVE: Eufemia is beginning to feel better. She did sleep some last night. OBJECTIVE: VITAL SIGNS: Temperature 98.2, pulse 95, blood pressure 140/77, O2 saturation 96%. HEENT: Unremarkable. NECK: No adenopathy or JVD. LUNGS: Coarse breath sounds bilaterally. She continues to wear high-flow oxygen with O2 saturations in the mid 90s. CARDIAC: S1, S2. Slightly tachycardic. ABDOMEN: Soft. EXTREMITIES: No edema. LABORATORY DATA: White blood cell count 21.1, hematocrit 35, and platelet count 199. Sodium , potassium 4.3, chloride 105, CO2 of 26, BUN 22, creatinine 0.6, glucose 128. ASSESSMENT: 1. Metastatic lung cancer. 2. Right upper lobe pneumonia, which has improved on x-ray done today versus admission. 3. Pulmonary embolism. 4. Malignant left pleural effusion. PLAN: 1. She can transfer to [facility], and we will continue to try to wean her oxygen. 2. I will switch her enoxaparin over to Eliquis. She will be treated with a dose of 2 mg b.i.d. for another 5 days and then be transitioned to 5 mg twice daily thereafter. 3. Continue the steroids and broad-spectrum IV antibiotics. So far, the cultures show no growth so the vancomycin can probably stop tomorrow. 4. Pleural catheter drains every other day. Job ID: [id number]
[2019-06-14] MEDS: Famotidine 20 MG TAB PO SCH ×2 (09:08→21:22)
[2019-06-14] MEDS: Vancomycin HCl 1.25 GM in Sodium Chloride 0.9% 250 ML 250 ML IVPB SCH ×2 (09:08→21:21)
[2019-06-14] MEDS: Apixaban 5 MG TAB PO SCH ×2 (09:08→21:22)
[2019-06-14] MEDS: Ivabradine 5 MG TAB PO SCH ×2 (09:09→21:23)
--- NOTE | 2019-06-14 09:21 | RAD ---
PORTABLE AP CHEST XRAY: HISTORY: Pneumonia. COMPARISON: 06/11/2019. FINDINGS: A left-sided pleural catheter is noted in place which may represent a tunneled pleural catheter enter ing at the left lung base with tip overlying the medial aspect of the mid left hemithorax. Pleural a nd parenchymal changes are again present at the left lung base likely related to left pleural effusio n and associated atelectasis. Again noted are interstitial and alveolar opacities bilaterally much m ore diffuse involving the right hemithorax. There is a probable tiny right pleural effusion. Cardia c silhouette is within normal limits. There has been no significant interval change given difference s in technique. IMPRESSION: 1. Persistent interstitial and alveolar opacities much greater on the right with stable pleural and parenchymal changes at the left lung base. 2. Stable left pleural catheter in place. POS: OFF
--- NOTE | 2019-06-14 15:22 | EKG ---
Test Reason : Blood Pressure : / mmHG Vent. Rate : 102 BPM Atrial Rate : 102 BPM P-R Int : 130 ms QRS Dur : 064 ms QT Int : 374 ms P-R-T Axes : 039 259 013 degrees QTc Int : 487 ms Sinus tachycardia Right superior axis deviation Possible Right ventricular hypertrophy Cannot rule out Anterior infarct , age undetermined Abnormal ECG Confirmed by KILEY RAMIREZ, MARJAN ([id number]), social media editor JUNIOR NAIK ([id number]) on 06/14/2019 3:22:03 PM Referred By: Confirmed By:MARJAN CAO MD
--- NOTE | 2019-06-14 20:25 | PDOC.HOSPP ---
- Subjective Encounter Date: 06/14/19 Encounter Time: 20:22 Subjective: 64 y/o female with recent diagnosis of left lung cancer associated with malignant pleural effusion s/p pleurx catheter placement admitted due to worsening SOB and leg swelling. CTA showed PE and consolidation. Oral intake reamained poor though improving. - Objective Vital Signs & Weight: Vital Signs (12 hours) Temp Pulse Ox 06/14/19 19:25 98.3 F 06/14/19 18:26 96 06/14/19 15:38 97.9 F 06/14/19 11:00 98.2 F Weight Admit Weight 130 lb 15.273 oz Weight 134 lb 0.657 oz Most Recent Monitor Data Heart Rate from ECG 88 NIBP 140/88 NIBP BP-Mean 105 Respiration from ECG 28 SpO2 95 I&O: 06/13/19 06/14/19 06/15/19 06:59 06:59 06:59 Intake Total 2188 2894 888 Output Total 1000 2375 1000 Balance 1188 519 -112 Result Diagrams: 06/14/19 06:12 06/14/19 06:12 Hospitalist ROS - Medication Medications: Active Medications Generic Name Dose Route Start Last Admin Trade Name Freq PRN Reason Stop Dose Admin Acetaminophen 1,000 mg 06/10/19 20:57 06/11/19 01:55 Tylenol PO 1,000 mg Q6H PRN Administration Mild Pain (1-3) Alprazolam 0.25 mg 06/12/19 22:00 06/14/19 13:31 Xanax PO 0.25 mg Q8HR FARAZ Administration Apixaban 10 mg 06/14/19 09:00 06/14/19 09:08 Eliquis PO 10 mg BID FARAZ Administration Famotidine 20 mg 06/13/19 21:00 06/14/19 09:08 Pepcid PO 20 mg Q12HR FARAZ Administration Cefepime HCl 2 gm/ Sodium 100 mls @ 200 mls/hr 06/11/19 06:00 06/14/19 17:54 Chloride IVPB 100 mls 0600,1800 FARAZ Administration Sodium Chloride 1,000 mls @ 65 mls/hr 06/10/19 20:57 06/14/19 17:54 Normal Saline 0.9% IV 1,000 mls .[id number] FARAZ Administration Levofloxacin 750 mg/ Device 150 mls @ 100 mls/hr 06/11/19 07:30 06/14/19 09: 06 IVPB 150 mls Q24HR FARAZ Administration Vancomycin HCl 1.25 gm/ Sodium 250 mls @ 250 mls/hr 06/12/19 08:00 06/14/19 09:08 Chloride IVPB 250 mls 0800,2000 FARAZ Administration Ivabradine 5 mg 06/10/19 21:00 06/14/19 09:09 Corlanor PO 5 mg BID FARAZ Administration Methylprednisolone Sodium Succinate 40 mg 06/11/19 12:00 06/14/19 17:55 Solu-Medrol IVP 40 mg Q6HR FARAZ Administration - Exam General Appearance: awake alert Eye: anicteric sclera ENT: normocephalic atraumatic Neck: symmetric Heart: RRR Heart - other findings: tachycardic Respiratory: no rales, no ronchi Respiratory - other findings: fair air entry with some transmited sound Gastrointestinal: soft, non-distended, normal bowel sounds Extremities: 1+ LE edema Neurological: cranial nerve grossly intact Musculoskeletal: generalized weakness Hosp A/P (1) HCAP (healthcare-associated pneumonia) Code(s): J18.9 - PNEUMONIA, UNSPECIFIED ORGANISM Status: Acute (2) Pulmonary embolism Code(s): I26.99 - OTHER PULMONARY EMBOLISM WITHOUT ACUTE COR PULMONALE Status : Acute (3) Severe sepsis Code(s): A41.9 - SEPSIS, UNSPECIFIED ORGANISM; R65.20 - SEVERE SEPSIS WITHOUT SEPTIC SHOCK Status: Acute (4) Acute respiratory failure with hypoxia Code(s): J96.01 - ACUTE RESPIRATORY FAILURE WITH HYPOXIA Status: Acute (5) Moderate protein-calorie malnutrition Code(s): E44.0 - MODERATE PROTEIN-CALORIE MALNUTRITION Status: Acute (6) Palliative care encounter Code(s): Z51.5 - ENCOUNTER FOR PALLIATIVE CARE Status: Acute - Plan Continue antibiotic and supportive care. Continue anticoagulation
[2019-06-15] MEDS: ALPRAZolam 0.25 MG TAB PO SCH ×4 (00:21→21:19)
[2019-06-15] MEDS: methylPREDNISolone Sod Succ 40 MG VIAL IVP SCH ×4 (00:21→18:29)
[2019-06-15 06:01] LABS: #Lymphocytes 0.2 thou/uL (1.20-3.40); #Monocytes 0.9 thou/uL (0.11-0.59); #Neutrophils 20.5 thou/uL (1.40-6.50); %Eosinophils 0.1 % (0.0-10.0); %Lymphocytes 0.8 % (21.0-51.0); %Monocytes 4.2 % (0.0-10.0); %Neutrophils 94.9 % (42.0-75.0); Hemoglobin 12.1 g/dL (12.0-16.0); Mean Corpuscular HGB CONC 32.7 g/dL (32.0-36.0); Mean Corpuscular Hemoglobin 27.4 pg (27.0-31.0); Mean Corpuscular Volume 83.9 fL (78.0-98.0); Mean Platelet Volume 8.5 fL (7.4-10.4); Platelet Count 181 thou/uL (130-400); RBC Distribution Width 12.7 % (11.5-14.5); Red Blood Cell (RBC) Count 4.43 mill/uL (4.20-5.40); White Blood Cell (WBC) Count 21.6 thou/uL (4.8-10.8)
[2019-06-15] MEDS: Cefepime 2 GM in Sodium Chloride 0.9% 100 ML IVPB SCH ×2 (06:19→18:21)
[2019-06-15 06:24] LABS: Anion Gap 8 mmol/L (10-20); BUN (Urea Nitrogen) 20 mg/dL (9.8-20.1); Calc. Creatinine Clearance 95 mL/min (70-130); Calcium 8.1 mg/dL (7.8-10.44); Carbon Dioxide 29 mmol/L (23-31); Chloride 105 mmol/L (98-107); Estimated GFR-MDRD Greater than 90; Glucose 122 mg/dL (80-115); Potassium 4.2 mmol/L (3.5-5.1); Sodium 138 mmol/L (136-145)
[2019-06-15 07:55] LABS: Vancomycin, Trough 22.3 ug/mL
[2019-06-15] MEDS: Sodium Chloride 0.9% 1,000 ML IV SCH (09:13)
[2019-06-15] MEDS: Famotidine 20 MG TAB PO SCH ×2 (09:14→21:19)
[2019-06-15] MEDS: Ivabradine 5 MG TAB PO SCH ×2 (09:14→21:19)
[2019-06-15] MEDS: Apixaban 5 MG TAB PO SCH ×2 (09:14→21:19)
[2019-06-15] MEDS: Vancomycin HCl 1 GM in Premix Bag 1 BAG IVPB SCH ×2 (09:15→21:19)
--- NOTE | 2019-06-15 11:42 | RAD ---
PORTABLE AP CHEST XRAY: HISTORY: Pneumonia. COMPARISON: 06/14/2019. FINDINGS: Left-sided pleural catheter remains in place. Pleural and parenchymal changes are again seen at the left lung base suggesting left pleural fluid and atelectasis. Pleural fluid could potentially be loc ulated. There are increased interstitial and patchy densities in the left mid lung zone with increas ed interstitial and alveolar opacities seen throughout the right hemithorax which are overall stable. There has been no significant interval change compared to the prior exam. IMPRESSION: Stable chest. POS: OFF
[2019-06-15] MEDS: Vancomycin HCl 1.25 GM in Sodium Chloride 0.9% 250 ML 250 ML IVPB SCH (15:17)
--- NOTE | 2019-06-15 18:11 | PDOC.HOSPP ---
- Subjective Encounter Date: 06/15/19 Encounter Time: 14:29 Subjective: 64 y/o female with recent diagnosis of left lung cancer associated with malignant pleural effusion s/p pleurx catheter placement admitted due to worsening SOB and leg swelling. CTA showed PE and consolidation. Oral intake is poor though improving. - Objective Vital Signs & Weight: Vital Signs (12 hours) Temp Pulse Ox 06/15/19 15:16 98.4 F 06/15/19 10:40 98.6 F 06/15/19 08:20 91 L 06/15/19 08:00 98 06/15/19 07:16 97.6 F Weight Admit Weight 130 lb 15.273 oz Weight 156 lb 4.8 oz Most Recent Monitor Data Heart Rate from ECG 96 NIBP 139/76 NIBP BP-Mean 97 Respiration from ECG 30 SpO2 96 I&O: 06/14/19 06/15/19 06/16/19 06:59 06:59 06:59 Intake Total 2894 2478 Output Total 2375 2300 Balance 519 178 Result Diagrams: 06/15/19 05:30 06/15/19 05:31 Hospitalist ROS - Medication Medications: Active Medications Generic Name Dose Route Start Last Admin Trade Name Freq PRN Reason Stop Dose Admin Acetaminophen 1,000 mg 06/10/19 20:57 06/11/19 01:55 Tylenol PO 1,000 mg Q6H PRN Administration Mild Pain (1-3) Alprazolam 0.25 mg 06/12/19 22:00 06/15/19 14:38 Xanax PO 0.25 mg Q8HR FARAZ Administration Apixaban 10 mg 06/14/19 09:00 06/15/19 09:14 Eliquis PO 10 mg BID FARAZ Administration Famotidine 20 mg 06/13/19 21:00 06/15/19 09:14 Pepcid PO 20 mg Q12HR FARAZ Administration Cefepime HCl 2 gm/ Sodium 100 mls @ 200 mls/hr 06/11/19 06:00 06/15/19 06:19 Chloride IVPB 100 mls 0600,1800 FARAZ Administration Sodium Chloride 1,000 mls @ 65 mls/hr 06/10/19 20:57 06/15/19 09:13 Normal Saline 0.9% IV 1,000 mls .[id number] FARAZ Administration Levofloxacin 750 mg/ Device 150 mls @ 100 mls/hr 06/11/19 07:30 06/15/19 09: 13 IVPB 150 mls Q24HR FARAZ Administration Vancomycin HCl 1 gm/ Device 200 mls @ 200 mls/hr 06/15/19 09:00 06/15/19 09: 15 IVPB 200 mls 0900,2100 FARAZ Administration Ivabradine 5 mg 06/10/19 21:00 06/15/19 09:14 Corlanor PO 5 mg BID FARAZ Administration Methylprednisolone Sodium Succinate 40 mg 06/11/19 12:00 06/15/19 13:23 Solu-Medrol IVP 40 mg Q6HR FARAZ Administration - Exam General Appearance: awake alert Eye: anicteric sclera ENT: normocephalic atraumatic Neck: symmetric Heart: RRR Respiratory: no ronchi, no tachypnea Respiratory - other findings: Fair air entry entry bilaterally Gastrointestinal: soft, non-distended, normal bowel sounds Extremities: 2+ LE edema Neurological: cranial nerve grossly intact Psychiatric: A&O x 3 Hosp A/P (1) Acute respiratory failure with hypoxia Code(s): J96.01 - ACUTE RESPIRATORY FAILURE WITH HYPOXIA Status: Acute (2) HCAP (healthcare-associated pneumonia) Code(s): J18.9 - PNEUMONIA, UNSPECIFIED ORGANISM Status: Acute (3) Pulmonary embolism Code(s): I26.99 - OTHER PULMONARY EMBOLISM WITHOUT ACUTE COR PULMONALE Status : Acute (4) Severe sepsis Code(s): A41.9 - SEPSIS, UNSPECIFIED ORGANISM; R65.20 - SEVERE SEPSIS WITHOUT SEPTIC SHOCK Status: Acute (5) Moderate protein-calorie malnutrition Code(s): E44.0 - MODERATE PROTEIN-CALORIE MALNUTRITION Status: Acute (6) Palliative care encounter Code(s): Z51.5 - ENCOUNTER FOR PALLIATIVE CARE Status: Acute (7) Hypoalbuminemia Code(s): E88.09 - OTH DISORDERS OF PLASMA-PROTEIN METABOLISM, NEC Status: Acute (8) Acute hyponatremia Code(s): E87.1 - HYPO-OSMOLALITY AND HYPONATREMIA Status: Acute - Plan Continue antibiotic and supportive care. Continue anticoagulation DC IVF [place] oral intake Increase activity.
--- NOTE | 2019-06-15 20:31 | PRG ---
DATE OF SERVICE: 06/15/2019 SUBJECTIVE: Eufemia Barrientos says she feels a little better than she felt yesterday PleurX catheter was drained. She had no shortness of breath when I was in the room with her. OBJECTIVE: LUNGS: Remarkable with no wheezes. HEART: Regular rhythm. ABDOMEN: Soft. LABORATORY DATA: White count 21.6, hemoglobin 12.1, platelets 181. Electrolytes are normal. Potassium is 4.2. Creatinine was normal. IMAGING DATA: Chest x-ray is unchanged. IMPRESSION: 1. Stage IV non-small cell lung cancer. 2. Pneumonia. 3. Pulmonary embolism. PLAN: Continue supportive care. I answered all of her sister's questions. Job ID: [id number] MTDD
[2019-06-16] MEDS: methylPREDNISolone Sod Succ 40 MG VIAL IVP SCH ×5 (00:30→23:46)
[2019-06-16 05:29] LABS: Band 7 % (5-11); Elliptocytes SLIGHT = 2-5 cells (100X) (0-1/hpf); Hemoglobin 11.9 g/dL (12.0-16.0); Hypochromia SLIGHT = 6-15 cells (100X) (0-5/hpf); Lymphocytes 1 % (21-51); MDiff Complete? YES; Mean Corpuscular HGB CONC 33.4 g/dL (32.0-36.0); Mean Corpuscular Hemoglobin 27.6 pg (27.0-31.0); Mean Corpuscular Volume 82.7 fL (78.0-98.0); Mean Platelet Volume 8.8 fL (7.4-10.4); Monocytes 6 % (0-10); Neutrophil 86 % (42-75); Platelet Count 142 thou/uL (130-400); Platelet Morphology Comment Appears Adequate; RBC Distribution Width 12.9 % (11.5-14.5); Red Blood Cell (RBC) Count 4.32 mill/uL (4.20-5.40); White Blood Cell (WBC) Count 24.1 thou/uL (4.8-10.8)
[2019-06-16 05:30] LABS: Anion Gap 8 mmol/L (10-20); BUN (Urea Nitrogen) 20 mg/dL (9.8-20.1); Calc. Creatinine Clearance 119 mL/min (70-130); Carbon Dioxide 31 mmol/L (23-31); Chloride 104 mmol/L (98-107); Estimated GFR-MDRD Greater than 90; Glucose 131 mg/dL (80-115); Potassium 3.8 mmol/L (3.5-5.1); Sodium 139 mmol/L (136-145)
[2019-06-16] MEDS: Cefepime 2 GM in Sodium Chloride 0.9% 100 ML IVPB SCH ×2 (05:59→17:21)
[2019-06-16] MEDS: ALPRAZolam 0.25 MG TAB PO SCH (06:03)
[2019-06-16] MEDS: Vancomycin HCl 1 GM in Premix Bag 1 BAG IVPB SCH ×2 (09:24→21:10)
[2019-06-16] MEDS: Apixaban 5 MG TAB PO SCH ×2 (09:24→21:10)
[2019-06-16] MEDS: Ivabradine 5 MG TAB PO SCH ×2 (09:24→21:10)
[2019-06-16] MEDS: Famotidine 20 MG TAB PO SCH ×2 (09:24→21:10)
--- NOTE | 2019-06-16 11:53 | RAD ---
PORTABLE AP CHEST: Date: 06/16/19 HISTORY: Pneumonia. COMPARISON: 06/15/19. FINDINGS: Left-sided pleural catheter remains in place and unhanged in position. Pleural and parenchymal change s are again seen at the left lung base, similar to prior study, which may represent left pleural effu paty and/or atelectasis. Associated pneumonia at the left lung base is a possibility. There are increased interstitial and alveolar opacities again seen throughout the lungs bilaterally, much greater on the right, also stable from prior exam. Chest is overall unhanged given differences i n technique. IMPRESSION: Stable chest with findings likely related to multifocal pneumonia with pleural and parenchymal change s left lung base, which may represent either loculated fluid and atelectasis, or possibly associated pneumonia at the left lung base. POS: OFF
--- NOTE | 2019-06-16 13:32 | PRG ---
DATE OF SERVICE: 06/14/2019 SUBJECTIVE: The patient is sitting up in bed, appears more comfortable than yesterday, progressively improving. Still very anxious and concerned about her edema in lower extremities. She is able to eat. No problems with swallowing. No chest pain. No abdominal pain. Voiding without difficulty, no diarrhea. OBJECTIVE: VITAL SIGNS: Temperature max 98.2, blood pressure wnl, pulse 92, respirations 22, O2 saturation 98% with high-flow oxygen. GENERAL: Appears in less distress than yesterday, oriented. HEENT: Ocular movements conjugate. LUNGS: A few inspiratory crackles, but overall improvement compared with initial findings. HEART: S1 and S2, regular rate. ABDOMEN: Soft, not distended. LABORATORY DATA: White blood cell count is up to 21,000 probably from corticosteroid effect; hemoglobin 11; platelets 199, with 94% neutrophils. Sodium 138, creatinine 0.61, albumin, 2.7. Urinalysis was normal. Microbiology; blood and urine culture, no growth at 36 hours and 48 hours. The chest x-ray today with persistent interstitial and alveolar opacities, more prominent on the right side. Stable parenchymal changes. The left pleural catheter in place. ASSESSMENT: Adenocarcinoma of lung with tyrosine kinase inhibitor therapy, which initially led to quite a bit of improvement, but now the patient has demonstrated progressively worsening interstitial pneumonitis, more prominent on the right side. She also has subsegmental pulmonary emboli. DISCUSSION: The possibilities again include infectious pneumonitis. Less likely that the embolism is contributing to this clinical presentation in view of the subsegmental nature of it. The malignancy is less likely as well. Alveolar carcinoma can cause diffuse pulmonary infiltrates, but she seems to have all along a more focal progression of the disease in the left side. She also has mets to liver and bone, I believe. The other possibilities are reaction to the tyrosine kinase inhibitor provided for the past few months, which is known to be associated with pneumonitis in up to 10% of cases. If that is the case, then one would expect a progressive improvement with corticosteroids would potentially accelerate the course of improvement. For the time being, she continues on antimicrobial therapy. Viral pneumonitis is something that has not been yet checked. We will add that to the panel with mistake. Job ID: [id number] [facility]
--- NOTE | 2019-06-16 15:20 | PDOC.HOSPP ---
- Subjective Encounter Date: 06/16/19 Encounter Time: 13:18 Subjective: 64 y/o female with recent diagnosis of left lung cancer associated with malignant pleural effusion s/p pleurx catheter placement admitted due to worsening SOB and leg swelling. Found to have acute respiratpory failure with hypoxia from PE and Multifocal pneumonia. Feeling better. No fever. Oral intake is improving. - Objective Vital Signs & Weight: Vital Signs (12 hours) Temp Pulse Ox 06/16/19 14:52 99.2 F 06/16/19 10:31 98 06/16/19 07:56 96 06/16/19 07:17 97.7 F 06/16/19 03:57 97.7 F Weight Admit Weight 130 lb 15.273 oz Weight 135 lb 3 oz Most Recent Monitor Data Heart Rate from ECG 90 NIBP 145/83 NIBP BP-Mean 103 Respiration from ECG 26 SpO2 96 I&O: 06/15/19 06/16/19 06/17/19 06:59 06:59 06:59 Intake Total 2478 2657 Output Total 2300 2675 Balance 178 -18 Result Diagrams: 06/16/19 04:38 06/16/19 04:38 Hospitalist ROS - Medication Medications: Active Medications Generic Name Dose Route Start Last Admin Trade Name Freq PRN Reason Stop Dose Admin Acetaminophen 1,000 mg 06/10/19 20:57 06/11/19 01:55 Tylenol PO 1,000 mg Q6H PRN Administration Mild Pain (1-3) Apixaban 10 mg 06/14/19 09:00 06/16/19 09:24 Eliquis PO 10 mg BID FARAZ Administration Famotidine 20 mg 06/13/19 21:00 06/16/19 09:24 Pepcid PO 20 mg Q12HR FARAZ Administration Cefepime HCl 2 gm/ Sodium 100 mls @ 200 mls/hr 06/11/19 06:00 06/16/19 05:59 Chloride IVPB 100 mls 0600,1800 FARAZ Administration Levofloxacin 750 mg/ Device 150 mls @ 100 mls/hr 06/11/19 07:30 06/16/19 06: 40 IVPB 150 mls Q24HR FARAZ Administration Vancomycin HCl 1 gm/ Device 200 mls @ 200 mls/hr 06/15/19 09:00 06/16/19 09: 24 IVPB 200 mls 0900,2100 FARAZ Administration Ivabradine 5 mg 06/10/19 21:00 06/16/19 09:24 Corlanor PO 5 mg BID FARAZ Administration Methylprednisolone Sodium Succinate 40 mg 06/11/19 12:00 06/16/19 13:36 Solu-Medrol IVP 40 mg Q6HR FARAZ Administration - Exam General Appearance: awake alert Eye: anicteric sclera ENT: normocephalic atraumatic Neck: no JVD Heart: RRR Heart - other findings: tachycardic Respiratory - other findings: fair air entry with some transmitted sound Gastrointestinal: soft, non-tender, non-distended, normal bowel sounds Extremities: 2+ LE edema Neurological: cranial nerve grossly intact, no focal deficits Psychiatric: A&O x 3 Hosp A/P (1) Acute respiratory failure with hypoxia Code(s): J96.01 - ACUTE RESPIRATORY FAILURE WITH HYPOXIA Status: Acute (2) HCAP (healthcare-associated pneumonia) Code(s): J18.9 - PNEUMONIA, UNSPECIFIED ORGANISM Status: Acute (3) Pulmonary embolism Code(s): I26.99 - OTHER PULMONARY EMBOLISM WITHOUT ACUTE COR PULMONALE Status : Acute (4) Severe sepsis Code(s): A41.9 - SEPSIS, UNSPECIFIED ORGANISM; R65.20 - SEVERE SEPSIS WITHOUT SEPTIC SHOCK Status: Acute (5) Moderate protein-calorie malnutrition Code(s): E44.0 - MODERATE PROTEIN-CALORIE MALNUTRITION Status: Acute (6) Palliative care encounter Code(s): Z51.5 - ENCOUNTER FOR PALLIATIVE CARE Status: Acute (7) Hypoalbuminemia Code(s): E88.09 - OTH DISORDERS OF PLASMA-PROTEIN METABOLISM, NEC Status: Acute (8) Acute hyponatremia Code(s): E87.1 - HYPO-OSMOLALITY AND HYPONATREMIA Status: Acute - Plan Continue antibiotic and supportive care. Continue anticoagulation [place] oral intake. Pleural drainage as needed. Monitor Hb and WBC.
--- NOTE | 2019-06-16 18:58 | PRG ---
DATE OF SERVICE: 06/16/2019 SUBJECTIVE: Ms. Barrientos this morning was fixated on the fact that she had taken the Xanax tablet and was tired. She over and over again told me that she could only take her Xanax every 12 hours. I have relayed this to the nursing staff. OBJECTIVE: VITAL SIGNS: Heart rates in the 80s, blood pressure is 143/81, respiratory rates in the 20s. LUNGS: Remarkable for coarse equal breath sounds. HEART: Regular rhythm. ABDOMEN: Soft. She remains on high-flow O2. LABORATORY DATA: White count 24.6, hemoglobin 11.9, platelets 142,000. Sodium 139, potassium 3.8, chloride 104, bicarb 31, BUN 20, creatinine 0.55. IMPRESSION: 1. Stage IV [id number] lung cancer. 2. Pneumonia. 3. Deconditioning. I do not anticipate that she will fully recover from this and really do not think she will ever become independent again. Job ID: [id number] MTDD
[2019-06-16 20:53] LABS: Vancomycin, Trough 16.7 ug/mL
[2019-06-17] MEDS: methylPREDNISolone Sod Succ 40 MG VIAL IVP SCH ×4 (05:59→22:09)
[2019-06-17] MEDS: Cefepime 2 GM in Sodium Chloride 0.9% 100 ML IVPB SCH ×2 (05:59→17:43)
[2019-06-17 06:05] LABS: Anion Gap 8 mmol/L (10-20); BUN (Urea Nitrogen) 19 mg/dL (9.8-20.1); Calc. Creatinine Clearance 93 mL/min (70-130); Calcium 8.4 mg/dL (7.8-10.44); Carbon Dioxide 35 mmol/L (23-31); Chloride 101 mmol/L (98-107); Estimated GFR-MDRD Greater than 90; Glucose 131 mg/dL (80-115); Potassium 4.2 mmol/L (3.5-5.1); Sodium 140 mmol/L (136-145)
[2019-06-17 06:19] LABS: Band 5 % (5-11); Hemoglobin 13.2 g/dL (12.0-16.0); MDiff Complete? YES; Mean Corpuscular HGB CONC 32.8 g/dL (32.0-36.0); Mean Corpuscular Hemoglobin 27.3 pg (27.0-31.0); Mean Corpuscular Volume 83.3 fL (78.0-98.0); Mean Platelet Volume 9.5 fL (7.4-10.4); Monocytes 4 % (0-10); Neutrophil 91 % (42-75); Platelet Count 117 thou/uL (130-400); Platelet Morphology Comment Appears Decreased; RBC Distribution Width 13.2 % (11.5-14.5); Red Blood Cell (RBC) Count 4.83 mill/uL (4.20-5.40); White Blood Cell (WBC) Count 28.5 thou/uL (4.8-10.8)
--- NOTE | 2019-06-17 07:48 | RAD ---
Chest one view HISTORY: Pneumonia. COMPARISON: 06/16/2019. FINDINGS: Cardiac silhouette remains predominantly obscured by widespread patchy airspace opacificati on. Pulmonary vasculature remains engorged. Left thoracostomy tube in place. Mediastinum is midline. Fluid over the left apex is stable. IMPRESSION: Widespread patchy parenchymal infiltrate, left pleural fluid, and other findings are stab le.
--- NOTE | 2019-06-17 09:55 | PRG ---
DATE OF SERVICE: 06/17/2019 SUBJECTIVE: The patient remains in the IMCU on high-flow oxygen. She seems in better spirits. Her was at the bedside this morning. OBJECTIVE: VITAL SIGNS: Her temperature is 98.8, pulse 99, blood pressure 138/94, and O2 saturation 97%. HEENT: Unremarkable. NECK: No adenopathy or JVD. LUNGS: She has diminished breath sounds in the left base compared to right. CARDIAC: S1, S2. Regular. ABDOMEN: Soft. EXTREMITIES: No edema. LABORATORY DATA: White blood cell count 28.5, hematocrit 40, and platelet count 117. Sodium 140, potassium 4.2, chloride 101, CO2 of 35, BUN 9, creatinine 0.6 glucose 131. ASSESSMENT: 1. Right upper lobe pneumonia. 2. Status post pulmonary embolism that really was not that large. 3. Malignant left pleural effusion. 4. Metastatic lung cancer. PLAN: 1. Given her improvement, I will go ahead and continue her on the antibiotics. She remains on Eliquis. Her increasing white count may be steroid driven, so I will go ahead and reduce that dose. 2. We will attempt to start weaning the high-flow oxygen, but that may take some time. Job ID: [id number]
[2019-06-17] MEDS: Famotidine 20 MG TAB PO SCH ×2 (10:40→20:12)
[2019-06-17] MEDS: Apixaban 5 MG TAB PO SCH ×2 (10:40→20:12)
[2019-06-17] MEDS: Ivabradine 5 MG TAB PO SCH ×2 (10:40→20:12)
[2019-06-17] MEDS: Vancomycin HCl 1 GM in Premix Bag 1 BAG IVPB SCH ×2 (10:41→20:12)
--- NOTE | 2019-06-17 14:07 | PDOC.HOSPP ---
- Subjective Encounter Date: 06/17/19 Encounter Time: 14:05 Subjective: f/u for PNA, PE and metastatic lung CA on current Cefepime/Levaquin/Vancomycin. Also receiving Eliquis but remains on high-flow O2 system. - Objective Vital Signs & Weight: Vital Signs (12 hours) Temp Pulse Ox 06/17/19 08:00 96 06/17/19 07:14 98.8 F 06/17/19 03:49 98.1 F Weight Admit Weight 130 lb 15.273 oz Weight 132 lb 7 oz Most Recent Monitor Data Heart Rate from ECG 96 NIBP 139/76 NIBP BP-Mean 97 Respiration from ECG 17 SpO2 97 I&O: 06/16/19 06/17/19 06/18/19 06:59 06:59 06:59 Intake Total 2657 1565 Output Total 2675 1400 Balance -18 165 Result Diagrams: 06/17/19 05:24 06/17/19 05:24 Radiology Reviewed by me: Yes (PCXR - patchy infiltrates bilat, L pleural effusion) EKG Reviewed by me: Yes (Tele - SR) Hospitalist ROS - Medication Medications: Active Medications Generic Name Dose Route Start Last Admin Trade Name Freq PRN Reason Stop Dose Admin Acetaminophen 1,000 mg 06/10/19 20:57 06/11/19 01:55 Tylenol PO 1,000 mg Q6H PRN Administration Mild Pain (1-3) Apixaban 10 mg 06/14/19 09:00 06/17/19 10:40 Eliquis PO 10 mg BID FARAZ Administration Famotidine 20 mg 06/13/19 21:00 06/17/19 10:40 Pepcid PO 20 mg Q12HR FARAZ Administration Cefepime HCl 2 gm/ Sodium 100 mls @ 200 mls/hr 06/11/19 06:00 06/17/19 05:59 Chloride IVPB 100 mls 0600,1800 FARAZ Administration Levofloxacin 750 mg/ Device 150 mls @ 100 mls/hr 06/11/19 07:30 06/17/19 06: 43 IVPB 150 mls Q24HR FARAZ Administration Vancomycin HCl 1 gm/ Device 200 mls @ 200 mls/hr 06/15/19 09:00 06/17/19 10: 41 IVPB 200 mls 0900,2100 FARAZ Administration Ivabradine 5 mg 06/10/19 21:00 10/07/19 10:40 Corlanor PO 5 mg BID FARAZ Administration Methylprednisolone Sodium Succinate 20 mg 06/17/19 10:00 06/17/19 10:51 Solu-Medrol IVP 20 mg Q6H FARAZ Administration - Exam General Appearance: awake alert General - other findings: tearful, anxious Eye: PERRL, anicteric sclera ENT: normocephalic atraumatic, no oropharyngeal lesions Neck: supple, symmetric, no JVD, no thyromegaly, no lymphadenopathy Heart: RRR, no murmur, no gallops, no rubs, normal peripheral pulses Respiratory: no rales, no ronchi Respiratory - other findings: diminished in L base Gastrointestinal: soft, non-tender, non-distended, normal bowel sounds Extremities: no cyanosis, no clubbing, no edema Skin: normal turgor, no lesions Neurological: cranial nerve grossly intact, no new deficit Musculoskeletal: normal tone, generalized weakness Psychiatric: A&O x 3, flat affect Hosp A/P (1) Acute respiratory failure with hypoxia Code(s): J96.01 - ACUTE RESPIRATORY FAILURE WITH HYPOXIA Status: Acute Plan: Persists with high-flow O2 requirement, slow wean (2) Metastatic lung cancer (metastasis from lung to other site) Code(s): C34.90 - MALIGNANT NEOPLASM OF UNSP PART OF UNSP BRONCHUS OR LUNG Status: Chronic Qualifiers: Laterality: left Qualified Code(s): C34.92 - Malignant neoplasm of unspecified part of left bronchus or lung (3) HCAP (healthcare-associated pneumonia) Code(s): J18.9 - PNEUMONIA, UNSPECIFIED ORGANISM Status: Acute Plan: Continue Cefepime/Levaquin/Vancomycin, pulmonary support (4) Pulmonary embolism Code(s): I26.99 - OTHER PULMONARY EMBOLISM WITHOUT ACUTE COR PULMONALE Status : Acute Plan: Continue Eliquis 10mg BID (5) Hyponatremia Code(s): E87.1 - HYPO-OSMOLALITY AND HYPONATREMIA Status: Acute Plan: Resolved (6) Severe sepsis Code(s): A41.9 - SEPSIS, UNSPECIFIED ORGANISM; R65.20 - SEVERE SEPSIS WITHOUT SEPTIC SHOCK Status: Acute Plan: Resolved - Plan plan discussed w/ family, continue antibiotics, PT/OT, adoption social worker, respiratory therapy PT for mobilization Transitioned to high-flow NC but slow wean Continue Cefepime/Vancomycin/Levaquin Continue Eliquis 10mg BID Resume home Xanax 0.25mg po q8h Pain control as clinically indicated
[2019-06-18] MEDS: methylPREDNISolone Sod Succ 40 MG VIAL IVP SCH (04:32)
[2019-06-18] MEDS: Cefepime 2 GM in Sodium Chloride 0.9% 100 ML IVPB SCH ×2 (05:09→18:12)
[2019-06-18] MEDS: Apixaban 5 MG TAB PO SCH ×3 (08:34→21:30)
[2019-06-18] MEDS: Ivabradine 5 MG TAB PO SCH ×3 (08:34→21:30)
[2019-06-18] MEDS: Famotidine 20 MG TAB PO SCH ×3 (08:34→21:30)
[2019-06-18 08:43] LABS: Vancomycin, Trough 14.8 ug/mL
--- NOTE | 2019-06-18 08:47 | RAD ---
Chest one view HISTORY: Pneumonia. COMPARISON: 06/17/2019. FINDINGS: Cardiac silhouette remains mostly obscured by left pleural fluid and dense bilateral airspa ce disease. Pulmonary vasculature is engorged. Patchy areas of parenchymal infiltrate throughout each lung are similar in appearance to the previous study. Left thoracostomy tube remains in place. F luid continues to track over the apex of the left lung. Old right rib fracture. No evidence of pneumothorax. IMPRESSION: Widespread alveolar infiltrate, left pleural fluid, and other findings are stable.
[2019-06-18] MEDS: Vancomycin HCl 1 GM in Premix Bag 1 BAG IVPB SCH (09:57)
--- NOTE | 2019-06-18 10:21 | PRG ---
DATE OF SERVICE: 06/18/2019 SUBJECTIVE: uEfemia is severely depressed. She is not sleeping. She will not take her alprazolam at night to help her sleep. She apparently has routinely been taking this at home for quite some time. OBJECTIVE: VITAL SIGNS: Her temperature is 97.6, pulse 83, blood pressure 137/78, and respiratory rate 16. HEENT: Unremarkable. NECK: No JVD. LUNGS: Diminished breath sounds in the bases. CARDIAC: S1 and S2, regular. ABDOMEN: Soft. EXTREMITIES: No edema. LABORATORY DATA: No labs were done today. Chest x-ray shows no significant change. ASSESSMENT: 1. Metastatic lung cancer. 2. Right upper lobe pneumonia. 3. Hypoxic respiratory failure, requiring high-flow oxygen. PLAN: 1. Try to wean high-flow oxygen as tolerated. 2. Continue anticoagulation for treatment of the pulmonary embolism. 3. Stop the vancomycin. 4. Decrease steroid dose. 5. I am trying to convince the patient to take her alprazolam before sleep, but I am not sure she will. Job ID: [id number]
--- NOTE | 2019-06-18 13:10 | PDOC.MOPN ---
Interval History: Feeling ok today, SOB slowly improving. Walking around the room twice per day. She is depressed. - Vital Signs Vital Signs: Vital Signs (12 hours) Temp Pulse Ox 06/18/19 08:26 99 06/18/19 08:00 97.6 F 99 06/18/19 03:44 97.5 F L Weight Admit Weight 130 lb 15.273 oz Weight 132 lb 7 oz Most Recent Monitor Data Heart Rate from ECG 99 NIBP 131/67 NIBP BP-Mean 88 Respiration from ECG 24 SpO2 95 - Physical Exam General: Alert, Oriented x3, Cooperative HEENT: EOMI Lungs: Other (decreased BS in left [id number] lung zayas) Cardiovascular: Regular rate, Normal S1, Normal S2 Abdomen: Soft Extremities: Other (2+ B/L LE edema) Neurological: Cranial nerves 3-12 NL Psych/Mental Status: Other (depressed mood) - Labs Result Diagrams: 06/17/19 05:24 06/17/19 05:24 Lab results: Laboratory Results - last 24 hr 06/18/19 08:12: Vancomycin Trough 14.8 A/P - Problem (1) HCAP (healthcare-associated pneumonia) Current Visit: Yes Code(s): J18.9 - PNEUMONIA, UNSPECIFIED ORGANISM Status: Acute (2) Pulmonary embolism Current Visit: Yes Code(s): I26.99 - OTHER PULMONARY EMBOLISM WITHOUT ACUTE COR PULMONALE Status: Acute (3) Malignant pleural effusion Current Visit: No Code(s): J91.0 - MALIGNANT PLEURAL EFFUSION Status: Chronic (4) Metastatic lung cancer (metastasis from lung to other site) Current Visit: No Code(s): C34.90 - MALIGNANT NEOPLASM OF UNSP PART OF UNSP BRONCHUS OR LUNG Status: Chronic Qualifiers: Laterality: left Qualified Code(s): C34.92 - Malignant neoplasm of unspecified part of left bronchus or lung - Plan Plan: encourage ambulation, sitting up in chair encourage increased PO intake wean oxygen as tolerated cont antibiotics and anticoagulation decrease steroids as per Dr. Mijares
--- NOTE | 2019-06-18 13:23 | PDOC.HOSPP ---
- Subjective Encounter Date: 06/18/19 Encounter Time: 13:15 Subjective: f/u for resp failure, PNA, lung CA and R-sided PE. Remains on high-flow O2 via NC, slept poorly overnight and refused to take Xanax. - Objective Vital Signs & Weight: Vital Signs (12 hours) Temp Pulse Ox 06/18/19 08:26 99 06/18/19 08:00 97.6 F 99 06/18/19 03:44 97.5 F L Weight Admit Weight 130 lb 15.273 oz Weight 132 lb 7 oz Most Recent Monitor Data Heart Rate from ECG 99 NIBP 131/67 NIBP BP-Mean 88 Respiration from ECG 24 SpO2 95 I&O: 06/17/19 06/18/19 06/19/19 06:59 06:59 06:59 Intake Total 1565 1430 Output Total 1400 2450 Balance 165 -1020 Result Diagrams: 06/17/19 05:24 06/17/19 05:24 Additional Labs: Microbiology 06/10/19 17:22 Venous blood - Right Arm Blood Culture - Preliminary Specimen has been received and culture in progress. No Growth to date. 06/10/19 17:14 Venous blood - Left Arm Blood Culture - Preliminary Specimen has been received and culture in progress. No Growth to date. Laboratory Tests 06/10/19 06/10/19 06/10/19 17:22 17:22 17:22 WBC 19.4 H Plt Count 126 L Neutrophils % 87.7 H Neutrophils % (Manual) Sodium 126 L Troponin I 0.269 H Cortisol 06/10/19 06/10/19 06/11/19 20:19 23:50 04:10 WBC Plt Count Neutrophils % Neutrophils % (Manual) Sodium Troponin I 0.283 H 0.225 H Cortisol 12.60 06/11/19 04:10 WBC Plt Count Neutrophils % Neutrophils % (Manual) 85 H Sodium Troponin I Cortisol Radiology Reviewed by me: Yes (PCXR - L pleural effusion, infilitrates bilat, pulm edema) EKG Reviewed by me: Yes (Tele - SR) Hospitalist ROS - Medication Medications: Active Medications Generic Name Dose Route Start Last Admin Trade Name Freq PRN Reason Stop Dose Admin Acetaminophen 1,000 mg 06/10/19 20:57 06/11/19 01:55 Tylenol PO 1,000 mg Q6H PRN Administration Mild Pain (1-3) Apixaban 10 mg 06/14/19 09:00 06/18/19 08:34 Eliquis PO 10 mg BID FARAZ Administration Famotidine 20 mg 06/13/19 21:00 06/18/19 08:34 Pepcid PO 20 mg Q12HR FARAZ Administration Cefepime HCl 2 gm/ Sodium 100 mls @ 200 mls/hr 06/11/19 06:00 06/18/19 05:09 Chloride IVPB 100 mls 0600,1800 FARAZ Administration Levofloxacin 750 mg/ Device 150 mls @ 100 mls/hr 06/11/19 07:30 06/18/19 06: 31 IVPB 150 mls Q24HR FARAZ Administration Ivabradine 5 mg 06/10/19 21:00 06/18/19 08:34 Corlanor PO 5 mg BID FARAZ Administration Sodium Chloride 10 ml 06/17/19 21:00 06/18/19 08:34 Flush - Normal Saline IVF 10 ml Q12HR FARAZ Administration - Exam General Appearance: ill appearing General - other findings: sleepy Eye: PERRL, anicteric sclera ENT: normocephalic atraumatic, no oropharyngeal lesions Neck: supple, symmetric, no JVD, no thyromegaly, no lymphadenopathy Heart: RRR, no gallops, no rubs, normal peripheral pulses Respiratory - other findings: diminished in bases bilat Gastrointestinal: soft, non-tender, non-distended, normal bowel sounds Extremities: no cyanosis, 1+ LE edema Skin: normal turgor, no lesions Neurological: cranial nerve grossly intact, no new deficit Musculoskeletal: normal tone, generalized weakness Psychiatric: flat affect Hosp A/P (1) Acute respiratory failure with hypoxia Code(s): J96.01 - ACUTE RESPIRATORY FAILURE WITH HYPOXIA Status: Acute Plan: Persistent need for high-flow O2, weaning as clinically indicated, currently FIO2 44%, 30L/min (2) Metastatic lung cancer (metastasis from lung to other site) Code(s): C34.90 - MALIGNANT NEOPLASM OF UNSP PART OF UNSP BRONCHUS OR LUNG Status: Chronic Qualifiers: Laterality: left Qualified Code(s): C34.92 - Malignant neoplasm of unspecified part of left bronchus or lung Plan: Supportive mgmt (3) HCAP (healthcare-associated pneumonia) Code(s): J18.9 - PNEUMONIA, UNSPECIFIED ORGANISM Status: Acute Plan: Continue Cefepime/Levaquin, O2 support (4) Pulmonary embolism Code(s): I26.99 - OTHER PULMONARY EMBOLISM WITHOUT ACUTE COR PULMONALE Status : Acute Plan: Continue Eliquis 10mg BID (5) Hyponatremia Code(s): E87.1 - HYPO-OSMOLALITY AND HYPONATREMIA Status: Acute (6) Severe sepsis Code(s): A41.9 - SEPSIS, UNSPECIFIED ORGANISM; R65.20 - SEVERE SEPSIS WITHOUT SEPTIC SHOCK Status: Acute Plan: Resolved - Plan plan discussed w/ family, continue antibiotics, PT/OT, respiratory therapy, DVT proph w/SCDs Consults: Palliative Care PT for mobilization Transitioned to high-flow NC but slow wean Continue Cefepime/Levaquin Continue Eliquis 10mg BID Resume home Xanax 0.25mg po q8h Pain control as clinically indicated Poor prognosis
[2019-06-18] MEDS: ALPRAZolam 0.25 MG TAB PO PRN ×2 (20:19→21:30)
[2019-06-18] MEDS ORDERED: methylPREDNISolone Sod Succ 40 MG VIAL IVP SCH (21:00)
[2019-06-19] MEDS: Cefepime 2 GM in Sodium Chloride 0.9% 100 ML IVPB SCH (06:01)
--- NOTE | 2019-06-19 07:55 | RAD ---
PORTABLE CHEST 1 VIEW: DATE: 06/19/2019. TIME: 4:30 a.m. HISTORY: Pneumonia. FINDINGS: Comparison is made with the exam of previous day. Allowing for differences in technique, no signific ant interval change is seen. POS: YULISSA
[2019-06-19] MEDS: Escitalopram Oxalate 20 mg Tablet PO SCH (09:24)
[2019-06-19] MEDS: Famotidine 20 MG TAB PO SCH ×2 (09:24→20:09)
[2019-06-19] MEDS: Ivabradine 5 MG TAB PO SCH ×2 (09:24→20:09)
[2019-06-19] MEDS: Apixaban 5 MG TAB PO SCH ×2 (09:24→20:09)
--- NOTE | 2019-06-19 09:57 | PRG ---
DATE OF SERVICE: 06/19/2019 SUBJECTIVE: She apparently was found on the floor last night. She does not appear to remember any of this. She seems much happier today. She did take her Xanax and got some sleep last night. OBJECTIVE: VITAL SIGNS: Temperature 99.3, pulse 98, blood pressure 130/80, and O2 saturation is 100% on 4 L. HEENT: Unremarkable. NECK: No adenopathy or JVD. LUNGS: She has diminished breath sounds in the left base. CARDIAC: S1 and S2 regular. ABDOMEN: Soft. EXTREMITIES: No edema. LABORATORY DATA: No labs were done today. ASSESSMENT: 1. Right upper lobe pneumonia. 2. Metastatic lung cancer. 3. Small pulmonary embolism. PLAN: 1. I will change her over to oral antibiotics. 2. I will stop her steroids because of her altered mental status. 3. I have decreased her Xanax dose. 4. She will continue on Lexapro. 5. Try to wean oxygen. 6. Keep in IMCU until her mental status is better. 7. Drain PleurX catheter today. Job ID: [id number]
[2019-06-19] MEDS: Cefdinir 300 MG CAP PO SCH (10:11)
--- NOTE | 2019-06-19 15:15 | PDOC.HOSPP ---
- Subjective Encounter Date: 06/19/19 Encounter Time: 15:10 Subjective: f/u for resp failure on prior high-flow NC now on 3.5L/min NC. Feels ok overall. Drained Pleur-X cath with 500ml. Appetite ok. - Objective Vital Signs & Weight: Vital Signs (12 hours) Temp Pulse Ox 06/19/19 11:22 99.0 F 06/19/19 08:42 94 L 06/19/19 08:00 94 L 06/19/19 07:32 99.3 F 06/19/19 04:11 98.1 F Weight Admit Weight 130 lb 15.273 oz Weight 133 lb 6.075 oz Most Recent Monitor Data Heart Rate from ECG 100 NIBP 129/84 NIBP BP-Mean 99 Respiration from ECG 22 SpO2 99 I&O: 06/18/19 06/19/19 06/20/19 06:59 06:59 06:59 Intake Total 1430 700 300 Output Total 2450 925 Balance -1020 -225 300 Result Diagrams: 06/17/19 05:24 06/17/19 05:24 Additional Labs: Microbiology 06/10/19 17:22 Venous blood - Right Arm Blood Culture - Preliminary Specimen has been received and culture in progress. No Growth to date. 06/10/19 17:14 Venous blood - Left Arm Blood Culture - Preliminary Specimen has been received and culture in progress. No Growth to date. Laboratory Tests 06/10/19 06/10/19 06/10/19 17:22 17:22 17:22 WBC 19.4 H Plt Count 126 L Neutrophils % 87.7 H Neutrophils % (Manual) Sodium 126 L Troponin I 0.269 H Cortisol 06/10/19 06/10/19 06/11/19 20:19 23:50 04:10 WBC Plt Count Neutrophils % Neutrophils % (Manual) Sodium Troponin I 0.283 H 0.225 H Cortisol 12.60 06/11/19 04:10 WBC Plt Count Neutrophils % Neutrophils % (Manual) 85 H Sodium Troponin I Cortisol Radiology Reviewed by me: Yes (PCXR - no interval change) EKG Reviewed by me: Yes (Tele - SR) Hospitalist ROS - Medication Medications: Active Medications Generic Name Dose Route Start Last Admin Trade Name Freq PRN Reason Stop Dose Admin Acetaminophen 1,000 mg 06/10/19 20:57 06/11/19 01:55 Tylenol PO 1,000 mg Q6H PRN Administration Mild Pain (1-3) Apixaban 10 mg 06/19/19 09:00 06/19/19 09:24 Eliquis PO 10 mg BID FARAZ Administration Cefdinir 600 mg 06/19/19 09:00 06/19/19 10:11 Omnicef PO 600 mg DAILY FARAZ Administration Escitalopram Oxalate 20 mg 06/19/19 09:00 06/19/19 09:24 Lexapro PO 20 mg DAILY FARAZ Administration Famotidine 20 mg 06/13/19 21:00 06/19/19 09:24 Pepcid PO 20 mg Q12HR FARAZ Administration Ivabradine 5 mg 06/10/19 21:00 06/19/19 09:24 Corlanor PO 5 mg BID FARAZ Administration Sodium Chloride 10 ml 06/17/19 21:00 06/19/19 09:24 Flush - Normal Saline IVF 10 ml Q12HR FARAZ Administration - Exam General Appearance: awake alert General - other findings: answers questions Eye: PERRL, anicteric sclera ENT: normocephalic atraumatic, no oropharyngeal lesions Neck: supple, symmetric, no JVD, no thyromegaly Heart: RRR, no murmur, no gallops, no rubs, normal peripheral pulses Respiratory: no rales, no ronchi Respiratory - other findings: diminished in L base Gastrointestinal: soft, non-tender, non-distended, normal bowel sounds, no palpable masses Extremities: no cyanosis, no clubbing, 1+ LE edema Skin: normal turgor, no lesions Neurological: cranial nerve grossly intact, no new deficit Musculoskeletal: normal tone, generalized weakness Psychiatric: A&O x 3, flat affect Hosp A/P (1) Acute respiratory failure with hypoxia Code(s): J96.01 - ACUTE RESPIRATORY FAILURE WITH HYPOXIA Status: Acute Plan: Off high-flow NC now transitioned to 3.5L/min NC, continue pulmonary support (2) Metastatic lung cancer (metastasis from lung to other site) Code(s): C34.90 - MALIGNANT NEOPLASM OF UNSP PART OF UNSP BRONCHUS OR LUNG Status: Chronic Qualifiers: Laterality: left Qualified Code(s): C34.92 - Malignant neoplasm of unspecified part of left bronchus or lung (3) HCAP (healthcare-associated pneumonia) Code(s): J18.9 - PNEUMONIA, UNSPECIFIED ORGANISM Status: Acute Plan: continue Omnicef daily (4) Pulmonary embolism Code(s): I26.99 - OTHER PULMONARY EMBOLISM WITHOUT ACUTE COR PULMONALE Status : Acute Plan: Continue Eliquis 10mg BID (5) Hyponatremia Code(s): E87.1 - HYPO-OSMOLALITY AND HYPONATREMIA Status: Acute (6) Severe sepsis Code(s): A41.9 - SEPSIS, UNSPECIFIED ORGANISM; R65.20 - SEVERE SEPSIS WITHOUT SEPTIC SHOCK Status: Acute Plan: Resolved - Plan plan discussed w/ family, continue antibiotics, PT/OT, social work nurse, respiratory therapy, out of bed/ambulate PT for mobilization Transitioned to low-flow NC today Continue Omnicef 600mg daily Continue Eliquis 10mg BID Continue Xanax for anxiety Pain control as clinically indicated OOB/ambulate with PT Likely transition to medical floor and potentially home in 48h
[2019-06-19] MEDS: ALPRAZolam 0.25 MG TAB PO PRN (20:06)
[2019-06-20] MEDS ORDERED: Melatonin 3 MG TAB PO SCH (01:00)
[2019-06-20] MEDS: Ivabradine 5 MG TAB PO SCH ×2 (08:44→20:48)
[2019-06-20] MEDS: Apixaban 5 MG TAB PO SCH ×2 (08:44→20:47)
[2019-06-20] MEDS: Famotidine 20 MG TAB PO SCH ×2 (08:44→20:48)
[2019-06-20] MEDS: Cefdinir 300 MG CAP PO SCH (08:44)
[2019-06-20] MEDS: Escitalopram Oxalate 20 mg Tablet PO SCH (08:44)
[2019-06-20] MEDS ORDERED: Melatonin 3 MG TAB PO PRN (09:55)
--- NOTE | 2019-06-20 10:17 | PRG ---
DATE OF SERVICE: 06/20/2019 SUBJECTIVE: She appears to feel somewhat better. She had no acute complaints. OBJECTIVE: VITAL SIGNS: Temperature 98.5, pulse 82, blood pressure 120/77, O2 saturations 97%. HEENT: Unremarkable. NECK: No adenopathy or JVD. LUNGS: Diminished breath sounds at left base, right side clear. CARDIAC: S1 and S2, regular. ABDOMEN: Soft. EXTREMITIES: No edema. LABORATORY DATA: No labs were obtained today. ASSESSMENT: 1. Pulmonary embolism. 2. Pneumonia. 3. Malignant left pleural effusion. 4. Metastatic lung cancer. PLAN: 1. Can transfer to Oncology. Need to focus now on rehabilitative measures. 2. Add melatonin at night to help her sleep. Job ID: [id number]
--- NOTE | 2019-06-20 10:24 | RAD ---
PORTABLE CHEST ONE VIEW: HISTORY: Follow up pneumonia. COMPARISON: 06/19/2019 FINDINGS: Left chest tube in place. Extensive bilateral interstitial and alveolar pneumonia and bilateral pleur al effusions, larger on the left side. Heart size appears within normal limits. IMPRESSION: Stable extensive bilateral interstitial and alveolar parenchymal changes and pleural effusion changes with left chest tube. Continue short term followup. POS: KELLEN
[2019-06-20] MEDS: Ondansetron ODT 4 MG TAB PO PRN (15:19)
--- NOTE | 2019-06-20 15:59 | PDOC.HOSPP ---
- Subjective Subjective: Seen and examined. Family at bedside. Patient with poor appetite. Patient on oxygen, family state they have portable oxygen at home for her. PleurX Catheter was drained yesterday and on an every other day regimen. - Objective Vital Signs & Weight: Vital Signs (12 hours) Temp Pulse Ox 06/20/19 11:49 98.2 F 06/20/19 08:00 93 L 06/20/19 07:32 98.5 F Weight Admit Weight 130 lb 15.273 oz Weight 133 lb 13.129 oz Most Recent Monitor Data Heart Rate from ECG 80 NIBP 146/82 NIBP BP-Mean 83 Respiration from ECG 19 SpO2 98 I&O: 06/19/19 06/20/19 06/21/19 06:59 06:59 06:59 Intake Total 700 660 Output Total 925 150 Balance -225 510 Result Diagrams: 06/17/19 05:24 06/17/19 05:24 Radiology Reviewed by me: Yes (CXR) Hospitalist ROS - Review of Systems All other systems reviewed; all pertinent +/- noted in HPI/Subj - Medication Medications: Active Medications Generic Name Dose Route Start Last Admin Trade Name Freq PRN Reason Stop Dose Admin Acetaminophen 1,000 mg 06/10/19 20:57 06/11/19 01:55 Tylenol PO 1,000 mg Q6H PRN Administration Mild Pain (1-3) Alprazolam 0.125 mg 06/19/19 08:38 06/19/19 20:06 Xanax PO 0.125 mg Q8H PRN Administration Anxiety Apixaban 10 mg 06/19/19 09:00 06/20/19 08:44 Eliquis PO 10 mg BID FARAZ Administration Cefdinir 600 mg 06/19/19 09:00 06/20/19 08:44 Omnicef PO 600 mg DAILY FARAZ Administration Escitalopram Oxalate 20 mg 06/19/19 09:00 06/20/19 08:44 Lexapro PO 20 mg DAILY FARAZ Administration Famotidine 20 mg 06/13/19 21:00 06/20/19 08:44 Pepcid PO 20 mg Q12HR FARAZ Administration Ivabradine 5 mg 06/10/19 21:00 06/20/19 08:44 Corlanor PO 5 mg BID FARAZ Administration Ondansetron HCl 4 mg 06/10/19 20:57 06/20/19 15:19 Zofran Odt PO 4 mg Q6H PRN Administration Nausea/Vomiting Sodium Chloride 10 ml 06/17/19 21:00 06/20/19 08:44 Flush - Normal Saline IVF 10 ml Q12HR FARAZ Administration - Exam General Appearance: NAD, awake alert Eye: anicteric sclera ENT: normocephalic atraumatic, moist mucosa Neck: supple, symmetric, no lymphadenopathy Heart: no murmur, no gallops, no rubs Respiratory: no wheezes, no rales, no ronchi Respiratory - other findings: Decreased breath sounds on left Gastrointestinal: soft, non-tender, no guarding, no rigidity Extremities: no edema Skin: no lesions, no rashes Neurological: cranial nerve grossly intact, no weakness Musculoskeletal: no muscle wasting Psychiatric: A&O x 3, flat affect Hosp A/P (1) HCAP (healthcare-associated pneumonia) Code(s): J18.9 - PNEUMONIA, UNSPECIFIED ORGANISM Status: Acute (2) Hypoalbuminemia Code(s): E88.09 - OTH DISORDERS OF PLASMA-PROTEIN METABOLISM, NEC Status: Chronic (3) Pulmonary embolism Code(s): I26.99 - OTHER PULMONARY EMBOLISM WITHOUT ACUTE COR PULMONALE Status : Chronic (4) Severe sepsis Code(s): A41.9 - SEPSIS, UNSPECIFIED ORGANISM; R65.20 - SEVERE SEPSIS WITHOUT SEPTIC SHOCK Status: Resolved (5) Acute hyponatremia Code(s): E87.1 - HYPO-OSMOLALITY AND HYPONATREMIA Status: Resolved (6) Acute respiratory failure with hypoxia Code(s): J96.01 - ACUTE RESPIRATORY FAILURE WITH HYPOXIA Status: Acute (7) Elevated troponin Code(s): R74.8 - ABNORMAL LEVELS OF OTHER SERUM ENZYMES Status: Resolved (8) Leukopenia Code(s): D72.819 - DECREASED WHITE BLOOD CELL COUNT, UNSPECIFIED Status: Chronic (9) Liver mass Code(s): R16.0 - HEPATOMEGALY, NOT ELSEWHERE CLASSIFIED Status: Chronic (10) Moderate protein-calorie malnutrition Code(s): E44.0 - MODERATE PROTEIN-CALORIE MALNUTRITION Status: Chronic (11) Pleural effusion Code(s): J90 - PLEURAL EFFUSION, NOT ELSEWHERE CLASSIFIED Status: Chronic (12) Sepsis Code(s): A41.9 - SEPSIS, UNSPECIFIED ORGANISM Status: Resolved (13) Tachycardia Code(s): R00.0 - TACHYCARDIA, UNSPECIFIED Status: Resolved (14) Thrombocytopenia Code(s): D69.6 - THROMBOCYTOPENIA, UNSPECIFIED Status: Chronic (15) Type [address] elevation Code(s): I21.A1 - MYOCARDIAL INFARCTION TYPE 2 Status: Resolved (16) Anxiety Code(s): F41.9 - ANXIETY DISORDER, UNSPECIFIED Status: Chronic (17) History of lung cancer Code(s): Z85.118 - PERSONAL HISTORY OF MALIGNANT NEOPLASM OF BRONCHUS AND LUNG Status: Chronic (18) Malignant pleural effusion Code(s): J91.0 - MALIGNANT PLEURAL EFFUSION Status: Chronic (19) Metastatic lung cancer (metastasis from lung to other site) Code(s): C34.90 - MALIGNANT NEOPLASM OF UNSP PART OF UNSP BRONCHUS OR LUNG Status: Chronic Qualifiers: Laterality: left Qualified Code(s): C34.92 - Malignant neoplasm of unspecified part of left bronchus or lung (20) Palpitations Code(s): R00.2 - PALPITATIONS Status: Chronic - Plan Plan: IMCU, pending downgraded to medical unit oncology consultation, recommendations patient pulmonology consultation, recommendations appreciated patient on oral antibiotics Pleurx catheter being drained every other day poor oral intake goal is for patient to become strong enough to tolerate chemotherapy for metastatic lung cancer continue home medications as able pain control breathing treatments as needed long-term prognosis is guarded.
[2019-06-20] MEDS: ALPRAZolam 0.25 MG TAB PO PRN (22:21)
[2019-06-21] MEDS: ALPRAZolam 0.25 MG TAB PO PRN (06:29)
[2019-06-21] MEDS: Famotidine 20 MG TAB PO SCH ×2 (08:34→22:16)
[2019-06-21] MEDS: Escitalopram Oxalate 20 mg Tablet PO SCH ×2 (08:34→08:52)
[2019-06-21] MEDS: Cefdinir 300 MG CAP PO SCH (08:34)
[2019-06-21] MEDS: Apixaban 5 MG TAB PO SCH ×3 (08:37→21:32)
[2019-06-21] MEDS: Ivabradine 5 MG TAB PO SCH ×2 (08:37→22:17)
--- NOTE | 2019-06-21 09:39 | PRG ---
DATE OF SERVICE: 06/21/2019 SUBJECTIVE: Eufemia was desaturating some this morning. She has been put back on high-flow oxygen. I find her to be extremely depressed. OBJECTIVE: VITAL SIGNS: On exam, temperature is 97.8, pulse 91, respirations 18, O2 saturation 88%, and blood pressure 144/78. HEENT: Unremarkable. NECK: No adenopathy or JVD. LUNGS: Slightly diminished breath sounds, left base compared to right. CARDIAC: S1 and S2. Regular. ABDOMEN: Soft. EXTREMITIES: No edema except on her feet. LABORATORY DATA: No labs were obtained today. ASSESSMENT: 1. Metastatic lung cancer. 2. Chronic hypoxic respiratory failure. 3. Pulmonary embolism. 4. Malignant left pleural effusion - this was drained today in a PleurX catheter, but she only had about 50 mL present. PLAN: Difficult situation. It is time to go down on her Eliquis. She is continuing oral antibiotics for the pneumonia. I think her most severe issue is the lung cancer, which continues to progress and will likely end her life. I think that she is unlikely to ever regain me for quality of life and hospice care should be considered. Job ID: [id number]
[2019-06-21] MEDS: Ondansetron ODT 4 MG TAB PO PRN (12:29)
--- NOTE | 2019-06-21 14:53 | PDOC.MOPN ---
Interval History: Patient asleep. Spoke with friend, she had emesis this am. Back on high flow O2. - Vital Signs Vital Signs: Vital Signs (12 hours) Temp Pulse Resp BP Pulse Ox 06/21/19 14:38 96 06/21/19 12:05 90 L 06/21/19 11:48 98.2 F 89 16 134/76 89 L 06/21/19 10:51 91 L 06/21/19 08:00 93 L 06/21/19 07:20 97.8 F 91 18 144/78 H 88 L 06/21/19 06:23 83 22 H Weight Admit Weight 130 lb 15.273 oz Weight 133 lb 13.129 oz Most Recent Monitor Data Heart Rate from ECG 80 NIBP 146/82 NIBP BP-Mean 83 Respiration from ECG 19 SpO2 98 - Physical Exam General: No acute distress HEENT: Atraumatic Lungs: Other Cardiovascular: Regular rate Abdomen: Normal bowel sounds Extremities: No clubbing Skin: No rashes Psych/Mental Status: Other - Labs Result Diagrams: 06/17/19 05:24 06/17/19 05:24 Status: lab reviewed by me A/P - Problem (1) Acute respiratory failure with hypoxia Current Visit: No Code(s): J96.01 - ACUTE RESPIRATORY FAILURE WITH HYPOXIA Status: Acute (2) Pleural effusion Current Visit: No Code(s): J90 - PLEURAL EFFUSION, NOT ELSEWHERE CLASSIFIED Status: Chronic (3) History of lung cancer Current Visit: No Code(s): Z85.118 - PERSONAL HISTORY OF MALIGNANT NEOPLASM OF BRONCHUS AND LUNG Status: Chronic - Plan Plan: 1. Patient desats when off high flow O2 2. Patient unlikely to recover to get chemoimmunotherapy. 3. Recommend hospice, will discuss further with Dr. Hood
--- NOTE | 2019-06-21 14:55 | PDOC.MOPN ---
Interval History: Pt feeling ok, very depressed. SOB is stable. On 3.5L nasal cannula. - Vital Signs Vital Signs: Vital Signs (12 hours) Temp Pulse Resp BP Pulse Ox 06/21/19 14:38 96 06/21/19 12:05 90 L 06/21/19 11:48 98.2 F 89 16 134/76 89 L 06/21/19 10:51 91 L 06/21/19 08:00 93 L 06/21/19 07:20 97.8 F 91 18 144/78 H 88 L 06/21/19 06:23 83 22 H Weight Admit Weight 130 lb 15.273 oz Weight 133 lb 13.129 oz Most Recent Monitor Data Heart Rate from ECG 80 NIBP 146/82 NIBP BP-Mean 83 Respiration from ECG 19 SpO2 98 - Physical Exam General: Alert, Oriented x3 HEENT: EOMI Lungs: Other (non labored) Cardiovascular: Regular rate Neurological: Cranial nerves 3-12 NL Psych/Mental Status: Other (flat affect) - Labs Result Diagrams: 06/17/19 05:24 06/17/19 05:24 A/P - Problem (1) HCAP (healthcare-associated pneumonia) Current Visit: Yes Code(s): J18.9 - PNEUMONIA, UNSPECIFIED ORGANISM Status: Acute (2) Pulmonary embolism Current Visit: Yes Code(s): I26.99 - OTHER PULMONARY EMBOLISM WITHOUT ACUTE COR PULMONALE Status: Chronic (3) Malignant pleural effusion Current Visit: No Code(s): J91.0 - MALIGNANT PLEURAL EFFUSION Status: Chronic (4) Metastatic lung cancer (metastasis from lung to other site) Current Visit: No Code(s): C34.90 - MALIGNANT NEOPLASM OF UNSP PART OF UNSP BRONCHUS OR LUNG Status: Chronic Qualifiers: Qualified Code(s): C34.92 - Malignant neoplasm of unspecified part of left bronchus or lung - Plan Plan: encourage ambulation, sitting up in chair encourage increased PO intake wean oxygen as tolerated cont antibiotics and anticoagulation if she does not have further improvement in her functional status then hospice would be appropriate
[2019-06-21] MEDS ORDERED: 1/2 NS w/KCL 20 mEq 1,000 ML IV SCH ×2 (15:30→18:58)
--- NOTE | 2019-06-21 15:48 | RAD ---
CHEST ONE VIEW: 06/21/19 COMPARISON: Prior days study. HISTORY: Shortness of breath. The pleural and parenchymal lung changes appear stable as compared to the prior exam. Left chest tube remains in place. IMPRESSION: Stable exam. POS: TPC
--- NOTE | 2019-06-21 15:52 | PDOC.HOSPP ---
- Subjective Subjective: Seen and examined. Patient clinically worse today. Requiring high flow nasal cannula to maintain O2 saturation and still only saturating 90% while sitting up and resting without talking. Patient's Pleurx catheter did not drain significantly today. Patient not making urine, stat labs added in the afternoon. Patient vomiting. Patient overall with a poor prognosis in the near future. Recommended less aggressive measures and hospice, however patient's family are insistent that the patient regain her strength so that she can receive chemotherapy. Unfortunately this may not be realistic for this patient. - Objective Vital Signs & Weight: Vital Signs (12 hours) Temp Pulse Resp BP Pulse Ox 06/21/19 14:38 96 06/21/19 12:05 90 L 06/21/19 12:00 89 L 06/21/19 11:48 98.2 F 89 16 134/76 89 L 06/21/19 10:51 91 L 06/21/19 08:00 93 L 06/21/19 07:20 97.8 F 91 18 144/78 H 88 L 06/21/19 06:23 83 22 H Weight Admit Weight 130 lb 15.273 oz Weight 133 lb 13.129 oz Most Recent Monitor Data Heart Rate from ECG 80 NIBP 146/82 NIBP BP-Mean 83 Respiration from ECG 19 SpO2 98 I&O: 06/20/19 06/21/19 06/22/19 06:59 06:59 06:59 Intake Total 660 Output Total 150 50 Balance 510 -50 Result Diagrams: 06/17/19 05:24 06/17/19 05:24 Radiology Reviewed by me: Yes (CXR) Hospitalist ROS - Review of Systems All other systems reviewed; all pertinent +/- noted in HPI/Subj - Medication Medications: Active Medications Generic Name Dose Route Start Last Admin Trade Name Freq PRN Reason Stop Dose Admin Acetaminophen 1,000 mg 06/10/19 20:57 06/11/19 01:55 Tylenol PO 1,000 mg Q6H PRN Administration Mild Pain (1-3) Albuterol/Ipratropium 3 ml 06/11/19 07:28 06/21/19 06:23 Duoneb NEB 3 ml [id number] PRN Administration SOB &/or Wheezing Alprazolam 0.125 mg 06/19/19 08:38 06/20/19 22:21 Xanax PO 0.125 mg Q8H PRN Administration Anxiety Apixaban 5 mg 06/21/19 09:00 06/21/19 11:12 Eliquis PO Not Given BID FARAZ Cefdinir 600 mg 06/19/19 09:00 06/21/19 08:34 Omnicef PO 600 mg DAILY FARAZ Administration Escitalopram Oxalate 20 mg 06/19/19 09:00 06/21/19 08:52 Lexapro PO Not Given DAILY FARAZ Famotidine 20 mg 06/13/19 21:00 06/21/19 08:34 Pepcid PO 20 mg Q12HR FARAZ Administration Ivabradine 5 mg 06/10/19 21:00 06/21/19 08:37 Corlanor PO 5 mg BID FARAZ Administration Ondansetron HCl 4 mg 06/10/19 20:57 06/21/19 12:29 Zofran Odt PO 4 mg Q6H PRN Administration Nausea/Vomiting Sodium Chloride 10 ml 06/17/19 21:00 06/21/19 08:37 Flush - Normal Saline IVF 10 ml Q12HR FARAZ Administration - Exam General Appearance: ill appearing General - other findings: diaphoretic at rest Eye: anicteric sclera ENT: normocephalic atraumatic, moist mucosa Neck: supple, symmetric, no lymphadenopathy Heart: no murmur, no gallops, no rubs Heart - other findings: Tachycardia Respiratory: no wheezes, no rales Respiratory - other findings: Decreased breath sounds on left lower lung zayas Gastrointestinal: soft, non-tender, non-distended, no guarding Extremities: 1+ LE edema Skin: no lesions, no rashes Neurological: cranial nerve grossly intact, no focal deficits Musculoskeletal: generalized weakness Psychiatric: flat affect Hosp A/P (1) HCAP (healthcare-associated pneumonia) Code(s): J18.9 - PNEUMONIA, UNSPECIFIED ORGANISM Status: Acute (2) Hypoalbuminemia Code(s): E88.09 - OTH DISORDERS OF PLASMA-PROTEIN METABOLISM, NEC Status: Chronic (3) Pulmonary embolism Code(s): I26.99 - OTHER PULMONARY EMBOLISM WITHOUT ACUTE COR PULMONALE Status : Chronic (4) Severe sepsis Code(s): A41.9 - SEPSIS, UNSPECIFIED ORGANISM; R65.20 - SEVERE SEPSIS WITHOUT SEPTIC SHOCK Status: Resolved (5) Acute hyponatremia Code(s): E87.1 - HYPO-OSMOLALITY AND HYPONATREMIA Status: Resolved (6) Acute respiratory failure with hypoxia Code(s): J96.01 - ACUTE RESPIRATORY FAILURE WITH HYPOXIA Status: Acute (7) Elevated troponin Code(s): R74.8 - ABNORMAL LEVELS OF OTHER SERUM ENZYMES Status: Resolved (8) Leukopenia Code(s): D72.819 - DECREASED WHITE BLOOD CELL COUNT, UNSPECIFIED Status: Chronic (9) Liver mass Code(s): R16.0 - HEPATOMEGALY, NOT ELSEWHERE CLASSIFIED Status: Chronic (10) Moderate protein-calorie malnutrition Code(s): E44.0 - MODERATE PROTEIN-CALORIE MALNUTRITION Status: Chronic (11) Pleural effusion Code(s): J90 - PLEURAL EFFUSION, NOT ELSEWHERE CLASSIFIED Status: Chronic (12) Sepsis Code(s): A41.9 - SEPSIS, UNSPECIFIED ORGANISM Status: Resolved (13) Tachycardia Code(s): R00.0 - TACHYCARDIA, UNSPECIFIED Status: Resolved (14) Thrombocytopenia Code(s): D69.6 - THROMBOCYTOPENIA, UNSPECIFIED Status: Chronic (15) Type [address] elevation Code(s): I21.A1 - MYOCARDIAL INFARCTION TYPE 2 Status: Resolved (16) Anxiety Code(s): F41.9 - ANXIETY DISORDER, UNSPECIFIED Status: Chronic (17) History of lung cancer Code(s): Z85.118 - PERSONAL HISTORY OF MALIGNANT NEOPLASM OF BRONCHUS AND LUNG Status: Chronic (18) Malignant pleural effusion Code(s): J91.0 - MALIGNANT PLEURAL EFFUSION Status: Chronic (19) Metastatic lung cancer (metastasis from lung to other site) Code(s): C34.90 - MALIGNANT NEOPLASM OF UNSP PART OF UNSP BRONCHUS OR LUNG Status: Chronic Qualifiers: Laterality: left Qualified Code(s): C34.92 - Malignant neoplasm of unspecified part of left bronchus or lung (20) Palpitations Code(s): R00.2 - PALPITATIONS Status: Chronic - Plan Plan: Medical unit oncology consultation, recommendations patient pulmonology consultation, recommendations appreciated ID consultation, recommendations appreciated patient on oral antibiotics per ID Pleurx catheter being drained every other day, poor output today - may need re positioned per pulm CXR reviewed Start IV fluids Stat labs, no urine output per RN vomiting, symptomatic medications as needed poor oral intake goal is for patient to become strong enough to tolerate chemotherapy for metastatic lung cancer, though this may not be realistic continue home medications as able pain control breathing treatments as needed Short and long-term prognosis is guarded, recommend hospice.
[2019-06-21 15:58] LABS: Anion Gap 9 mmol/L (10-20); BUN (Urea Nitrogen) 23 mg/dL (9.8-20.1); Calc. Creatinine Clearance 104 mL/min (70-130); Carbon Dioxide 31 mmol/L (23-31); Chloride 97 mmol/L (98-107); Estimated GFR-MDRD Greater than 90; Glucose 118 mg/dL (80-115); Potassium 4.4 mmol/L (3.5-5.1); Sodium 133 mmol/L (136-145)
[2019-06-21 16:05] LABS: Band 1 % (5-11); Hemoglobin 12.3 g/dL (12.0-16.0); Lymphocytes 2 % (21-51); MDiff Complete? YES; Mean Corpuscular Hemoglobin 27.5 pg (27.0-31.0); Mean Corpuscular Volume 83.1 fL (78.0-98.0); Monocytes 3 % (0-10); Neutrophil 94 % (42-75); Platelet Count 63 thou/uL (130-400); Platelet Morphology Comment Appears Decreased; Poikilocytosis SLIGHT = 6-15 cells (100X) (0-5/hpf); RBC Distribution Width 14.3 % (11.5-14.5); White Blood Cell (WBC) Count 34.7 thou/uL (4.8-10.8)
--- NOTE | 2019-06-21 16:27 | PDOC.PALFU ---
Palliative Care Follow-up Note Conversation earlier with patient in relation to goals of care. Revisited the previous plan for rehab upon discharge and discussed that currently patient is utilizing all her energy for basic measures such as breathing and she may not meet criteria for rehab. Discussed disease trajectory and was having difficulty grasping possible decline related to respiratory status. Patient was resting on high flow oxygen and sleeping for discussion. Labored respirations noted with accessory muscle use. Attempted to follow back up with but he had returned home and family friend was at bedside. We will continue to follow and provide support for patient and family in relation to disease progression and revisiting goals of care in line with current trajectory and guarded status.
[2019-06-22] MEDS: Apixaban 5 MG TAB PO SCH ×2 (09:54→21:42)
[2019-06-22] MEDS: Cefdinir 300 MG CAP PO SCH (09:54)
[2019-06-22] MEDS: Escitalopram Oxalate 20 mg Tablet PO SCH (09:54)
[2019-06-22] MEDS: Famotidine 20 MG TAB PO SCH ×2 (09:54→21:42)
[2019-06-22] MEDS: Ivabradine 5 MG TAB PO SCH ×2 (09:54→21:42)
[2019-06-22] MEDS: ALPRAZolam 0.25 MG TAB PO PRN (09:57)
[2019-06-22] MEDS ORDERED: Vancomycin HCl 1.25 GM in Sodium Chloride 0.9% 250 ML 250 ML IVPB SCH ×2 (13:00→17:00)
--- NOTE | 2019-06-22 13:57 | PDOC.HOSPP ---
- Subjective Subjective: Seen and examined. Clinically worse. Tachypnic, O2 saturation's on the low side despite highflown nasal cannula. Patient is consistently hot and sweaty though she is afebrile. Elevation in WBC count. Patient's and family at bedside , had an honest conversation with them and realistically it is the recommendations of all specialists that the patient will not likely survive this. It is not realistic that the patient will make a drastic recovery and be able to receive chemotherapy. Recommended less aggressive measures, patient's family states that her son is coming to say goodbye to her on Monday and they would like to do anything they can to postpone things until then. Patient' s cultures have been negative to date and again without spiking high fevers, I do not believe this is infectious in nature. This is the progression of her cancer. Poor prognosis in the short future. Time was given for questions, all answered in detail. - Objective Vital Signs & Weight: Vital Signs (12 hours) Temp Pulse Resp BP Pulse Ox 06/22/19 11:35 97.3 F L 90 26 H 169/98 H 96 06/22/19 08:00 93 L 06/22/19 07:31 93 L 06/22/19 07:22 97.6 F 107 H 26 H 168/94 H 93 L 06/22/19 04:00 97.7 F 90 22 H 149/86 H 95 Weight Admit Weight 130 lb 15.273 oz Weight 133 lb 13.129 oz Most Recent Monitor Data Heart Rate from ECG 80 NIBP 146/82 NIBP BP-Mean 83 Respiration from ECG 19 SpO2 98 I&O: 06/21/19 06/22/19 06/23/19 06:59 06:59 06:59 Output Total 400 Balance -400 Result Diagrams: 06/21/19 15:30 06/21/19 15:30 Radiology Reviewed by me: Yes (CXR) Hospitalist ROS - Review of Systems All other systems reviewed; all pertinent +/- noted in HPI/Subj - Medication Medications: Active Medications Generic Name Dose Route Start Last Admin Trade Name Freq PRN Reason Stop Dose Admin Acetaminophen 1,000 mg 06/10/19 20:57 06/11/19 01:55 Tylenol PO 1,000 mg Q6H PRN Administration Mild Pain (1-3) Albuterol/Ipratropium 3 ml 06/11/19 07:28 06/21/19 06:23 Duoneb NEB 3 ml [id number] PRN Administration SOB &/or Wheezing Alprazolam 0.125 mg 06/19/19 08:38 06/22/19 09:57 Xanax PO 0.125 mg Q8H PRN Administration Anxiety Apixaban 5 mg 06/21/19 09:00 06/22/19 09:54 Eliquis PO 5 mg BID FARAZ Administration Escitalopram Oxalate 20 mg 06/19/19 09:00 06/22/19 09:54 Lexapro PO 20 mg DAILY FARAZ Administration Famotidine 20 mg 06/13/19 21:00 06/22/19 09:54 Pepcid PO 20 mg Q12HR FARAZ Administration Ivabradine 5 mg 06/10/19 21:00 06/22/19 09:54 Corlanor PO 5 mg BID FARAZ Administration Melatonin 3 mg 06/20/19 09:55 06/21/19 22:16 Melatonin PO 3 mg HS PRN Administration Insomnia Ondansetron HCl 4 mg 06/10/19 20:57 06/21/19 12:29 Zofran Odt PO 4 mg Q6H PRN Administration Nausea/Vomiting Sodium Chloride 10 ml 06/17/19 21:00 06/22/19 09:55 Flush - Normal Saline IVF Not Given Q12HR FARAZ - Exam General Appearance: ill appearing Eye: anicteric sclera ENT: normocephalic atraumatic, moist mucosa Neck: supple, symmetric, no lymphadenopathy Heart: no murmur, no gallops, no rubs Respiratory: rhonchi, tachypneic, wheezes Gastrointestinal: soft, non-tender, non-distended, normal bowel sounds, no guarding, no rigidity Extremities: 1+ LE edema Skin: no lesions, no rashes Neurological: cranial nerve grossly intact, no focal deficits Musculoskeletal: generalized weakness Psychiatric: not oriented Hosp A/P (1) HCAP (healthcare-associated pneumonia) Code(s): J18.9 - PNEUMONIA, UNSPECIFIED ORGANISM Status: Acute (2) Hypoalbuminemia Code(s): E88.09 - OTH DISORDERS OF PLASMA-PROTEIN METABOLISM, NEC Status: Chronic (3) Pulmonary embolism Code(s): I26.99 - OTHER PULMONARY EMBOLISM WITHOUT ACUTE COR PULMONALE Status : Chronic (4) Severe sepsis Code(s): A41.9 - SEPSIS, UNSPECIFIED ORGANISM; R65.20 - SEVERE SEPSIS WITHOUT SEPTIC SHOCK Status: Resolved (5) Acute hyponatremia Code(s): E87.1 - HYPO-OSMOLALITY AND HYPONATREMIA Status: Resolved (6) Acute respiratory failure with hypoxia Code(s): J96.01 - ACUTE RESPIRATORY FAILURE WITH HYPOXIA Status: Acute (7) Elevated troponin Code(s): R74.8 - ABNORMAL LEVELS OF OTHER SERUM ENZYMES Status: Resolved (8) Leukopenia Code(s): D72.819 - DECREASED WHITE BLOOD CELL COUNT, UNSPECIFIED Status: Chronic (9) Liver mass Code(s): R16.0 - HEPATOMEGALY, NOT ELSEWHERE CLASSIFIED Status: Chronic (10) Moderate protein-calorie malnutrition Code(s): E44.0 - MODERATE PROTEIN-CALORIE MALNUTRITION Status: Chronic (11) Pleural effusion Code(s): J90 - PLEURAL EFFUSION, NOT ELSEWHERE CLASSIFIED Status: Chronic (12) Sepsis Code(s): A41.9 - SEPSIS, UNSPECIFIED ORGANISM Status: Resolved (13) Tachycardia Code(s): R00.0 - TACHYCARDIA, UNSPECIFIED Status: Resolved (14) Thrombocytopenia Code(s): D69.6 - THROMBOCYTOPENIA, UNSPECIFIED Status: Chronic (15) Type [address] elevation Code(s): I21.A1 - MYOCARDIAL INFARCTION TYPE 2 Status: Resolved (16) Anxiety Code(s): F41.9 - ANXIETY DISORDER, UNSPECIFIED Status: Chronic (17) History of lung cancer Code(s): Z85.118 - PERSONAL HISTORY OF MALIGNANT NEOPLASM OF BRONCHUS AND LUNG Status: Chronic (18) Malignant pleural effusion Code(s): J91.0 - MALIGNANT PLEURAL EFFUSION Status: Chronic (19) Metastatic lung cancer (metastasis from lung to other site) Code(s): C34.90 - MALIGNANT NEOPLASM OF UNSP PART OF UNSP BRONCHUS OR LUNG Status: Chronic Qualifiers: Laterality: left Qualified Code(s): C34.92 - Malignant neoplasm of unspecified part of left bronchus or lung (20) Palpitations Code(s): R00.2 - PALPITATIONS Status: Chronic - Plan Plan: Medical unit Palliative care consultation, recommendations patient oncology consultation, recommendations patient pulmonology consultation, recommendations appreciated ID consultation, recommendations appreciated Escalate ABX Cultures have been negative to date WBC up Pleurx catheter being drained every other day, management per pulm CXR reviewed vomiting, symptomatic medications as needed poor oral intake continue home medications as able pain control breathing treatments as needed Short and long-term prognosis is guarded, recommend hospice.
[2019-06-22] MEDS: Piperacillin/Tazobactam 3.375 GM in Sodium Chloride 0.9% 100 ML IVPB SCH ×2 (14:22→17:00)
[2019-06-22] MEDS ORDERED: Fluconazole In NaCl,Iso-Osm 200 MG in Premix Bag 1 BAG IVPB SCH (14:30)
--- NOTE | 2019-06-22 14:57 | PRG ---
DATE OF SERVICE: 06/22/2019 SERVICE: Pulmonary Medicine. INTERVAL HISTORY: The patient is doing poorly from respiratory standpoint. Her oxygen requirements remain quite elevated. She has a profound weakness. She has a very poor cough. Otherwise, there has been no interval change to her condition. PHYSICAL EXAMINATION: VITAL SIGNS: Afebrile, pulse 90, blood pressure 169/98, respirations 26, saturation 96%, on high-flow nasal cannula with 51% FiO2. GENERAL: The patient is in no apparent distress. HEENT: Normocephalic and atraumatic. Sclerae white. Conjunctivae pink. Oral mucosa is moist without lesions. LUNGS: Decent air entry. No crackles are appreciated. There is decreased air entry on the left. No prolonged expiratory phase or wheezing is appreciated. HEART: Normal rate, regular. ABDOMEN: Soft, nontender, and nondistended. Bowel sounds are positive. MUSCULOSKELETAL: No cyanosis or clubbing. No pitting in the bilateral lower extremities. NEUROLOGIC: Grossly nonfocal. LABORATORY DATA: WBC 34.7, hemoglobin 12.3, platelets 63,000. Neutrophil count is 94% on top of 1% bands. Basic metabolic profile is significant for an elevated BUN, low creatinine, and low sodium and chloride. Respiratory virus panel, urine culture, and blood cultures x2 are unremarkable. IMAGING: Chest x-ray demonstrates left-sided pleural effusion. There is a PleurX catheter in position. Bilateral fluffy infiltrates are present. They seem to be worse in the right apical region. ASSESSMENT: 1. Chronic hypoxic respiratory failure. 2. Lung cancer, widely metastatic. 3. Acute pulmonary embolism. 4. Malignant pleural effusion on the left, status post PleurX catheter placement. DISCUSSION AND PLAN: The patient is doing very poorly from respiratory standpoint. Given her functional status, she is not a candidate for any type of chemotherapy. My presumption is that if this was a pneumonia, it would have been adequately treated. My suspicion is that we are dealing with advancing cancer process, perhaps, lymphangitic spread of carcinoma. Antibacterial antibiotics were once again initiated today. We will add empiric antifungal coverage. Ultimately, I do not believe that the patient has the ability to make a meaningful recovery. Even under the best of circumstances, she will likely pass away within the next month or two with maximal support. I will empirically give her some steroids to treat for inflammatory lung conditions. Job ID: [id number] [facility]
[2019-06-22] MEDS: methylPREDNISolone Sod Succ/PF 125 MG/2 ML VIAL IVP SCH (17:03)
[2019-06-22] MEDS: Vancomycin HCl 1.25 GM in Sodium Chloride 0.9% 250 ML 250 ML IVPB SCH (18:50)
[2019-06-22] MEDS ORDERED: Vancomycin HCl 1 GM in Premix Bag 1 BAG IVPB SCH (21:00)
[2019-06-23] MEDS: methylPREDNISolone Sod Succ/PF 125 MG/2 ML VIAL IVP SCH ×3 (00:41→13:26)
[2019-06-23] MEDS: Piperacillin/Tazobactam 3.375 GM in Sodium Chloride 0.9% 100 ML IVPB SCH ×4 (00:44→17:31)
[2019-06-23] MEDS: Vancomycin HCl 1.25 GM in Sodium Chloride 0.9% 250 ML 250 ML IVPB SCH ×2 (06:25→17:34)
[2019-06-23] MEDS: Escitalopram Oxalate 20 mg Tablet PO SCH (08:31)
[2019-06-23] MEDS: Ivabradine 5 MG TAB PO SCH ×2 (08:31→21:54)
[2019-06-23] MEDS: Famotidine 20 MG TAB PO SCH ×2 (08:31→21:53)
[2019-06-23] MEDS: Apixaban 5 MG TAB PO SCH ×2 (08:31→21:53)
[2019-06-23] MEDS ORDERED: Fluconazole In NaCl,Iso-Osm 100 MG in Admixture Fee 2 EACH IVPB SCH (09:00)
[2019-06-23 09:27] LABS: Band 1 % (5-11); Hemoglobin 12.5 g/dL (12.0-16.0); Lymphocytes 3 % (21-51); MDiff Complete? YES; Mean Corpuscular Hemoglobin 27.5 pg (27.0-31.0); Mean Corpuscular Volume 83.3 fL (78.0-98.0); Mean Platelet Volume 11.4 fL (7.4-10.4); Neutrophil 96 % (42-75); Platelet Count 61 thou/uL (130-400); Platelet Morphology Comment Appears Decreased; RBC Distribution Width 14.2 % (11.5-14.5); Red Blood Cell (RBC) Count 4.56 mill/uL (4.20-5.40); White Blood Cell (WBC) Count 27.2 thou/uL (4.8-10.8)
[2019-06-23 09:29] LABS: Anion Gap 12 mmol/L (10-20); BUN (Urea Nitrogen) 24 mg/dL (9.8-20.1); Calc. Creatinine Clearance 105 mL/min (70-130); Calcium 7.9 mg/dL (7.8-10.44); Carbon Dioxide 26 mmol/L (23-31); Chloride 96 mmol/L (98-107); Estimated GFR-MDRD Greater than 90; Glucose 126 mg/dL (80-115); Potassium 3.9 mmol/L (3.5-5.1); Sodium 130 mmol/L (136-145)
[2019-06-23] MEDS: ALPRAZolam 0.25 MG TAB PO PRN ×2 (11:24→22:13)
--- NOTE | 2019-06-23 14:14 | PDOC.HOSPP ---
- Subjective Subjective: Seen and examined. Continues to clinically deteriorate. Now barely able to keep her eyes open. Using accessory muscles of respiration. I had a long discussion with the patient family at bedside including and son. They are now interested in less aggressive measures and open to hospice. Discussed options for home versus inpatient hospice. Discussed pain management and recommended a fentanyl patch. The patient currently denies pain however she does not like the intense feeling that the IV narcotics give her and she refuses to ask for them/ doesn't want them. Patient's breathing is tenuous on highflown nasal cannula and occasionally in her confused state she is trying to remove her oxygen. Time was given for questions, all questions answered in detail. - Objective Vital Signs & Weight: Vital Signs (12 hours) Temp Pulse Resp BP Pulse Ox 06/23/19 14:00 98.1 F 89 26 H 134/79 99 06/23/19 10:45 92 28 H 99 06/23/19 08:22 97.3 F L 92 26 H 173/91 H 98 06/23/19 08:00 100 06/23/19 06:52 100 06/23/19 06:51 87 24 H 100 Weight Admit Weight 130 lb 15.273 oz Weight 133 lb 13.129 oz Most Recent Monitor Data Heart Rate from ECG 80 NIBP 146/82 NIBP BP-Mean 83 Respiration from ECG 19 SpO2 98 I&O: 06/22/19 06/23/19 06/24/19 06:59 06:59 06:59 Output Total 400 Balance -400 Result Diagrams: 06/23/19 08:37 06/23/19 08:37 Hospitalist ROS - Review of Systems All other systems reviewed; all pertinent +/- noted in HPI/Subj - Medication Medications: Active Medications Generic Name Dose Route Start Last Admin Trade Name Freq PRN Reason Stop Dose Admin Acetaminophen 1,000 mg 06/10/19 20:57 06/11/19 01:55 Tylenol PO 1,000 mg Q6H PRN Administration Mild Pain (1-3) Albuterol/Ipratropium 3 ml 06/11/19 07:28 06/21/19 06:23 Duoneb NEB 3 ml [id number] PRN Administration SOB &/or Wheezing Albuterol/Ipratropium 3 ml 06/22/19 15:00 06/23/19 10:45 Duoneb NEB 3 ml [id number] FARAZ Administration Alprazolam 0.125 mg 06/19/19 08:38 06/23/19 11:24 Xanax PO 0.125 mg Q8H PRN Administration Anxiety Apixaban 5 mg 06/21/19 09:00 06/23/19 08:31 Eliquis PO Not Given BID FARAZ Escitalopram Oxalate 20 mg 06/19/19 09:00 06/23/19 08:31 Lexapro PO Not Given DAILY FARAZ Famotidine 20 mg 06/13/19 21:00 06/23/19 08:31 Pepcid PO Not Given Q12HR FARAZ Fentanyl 12 mcg 06/23/19 13:00 06/23/19 13:24 Duragesic TD 12 mcg Q3D FARAZ Administration Piperacillin Sod/Tazobactam 100 mls @ 200 mls/hr 06/22/19 12:00 06/23/19 11: 26 Sod 3.375 gm/ Sodium Chloride IVPB 100 mls Q6HR FARAZ Administration Fluconazole/Sodium Chloride 50 mls @ 100 mls/hr 06/23/19 09:00 06/23/19 08:31 100 mg/ Miscellaneous IVPB 50 mls Medication DAILY FARAZ Administration Vancomycin HCl 1.25 gm/ Sodium 250 mls @ 166.667 mls/hr 06/22/19 19:00 06:25 Chloride IVPB 250 mls 0700,1900 FARAZ Administration Ivabradine 5 mg 06/10/19 21:00 06/23/19 08:31 Corlanor PO Not Given BID FRAAZ Melatonin 3 mg 06/20/19 09:55 06/21/19 22:16 Melatonin PO 3 mg HS PRN Administration Insomnia Methylprednisolone Sodium Succinate 40 mg 06/22/19 18:00 06/23/19 13:26 Solu-Medrol IVP Not Given Q6HR [facility] Ondansetron HCl 4 mg 06/10/19 20:57 06/21/19 12:29 Zofran Odt PO 4 mg Q6H PRN Administration Nausea/Vomiting Sodium Chloride 10 ml 06/17/19 21:00 06/23/19 08:32 Flush - Normal Saline IVF 10 ml Q12HR FARAZ Administration - Exam General Appearance: ill appearing Eye: PERRL ENT: normocephalic atraumatic, dry oral mucosa Neck: supple, symmetric Heart: no murmur, no gallops, no rubs Heart - other findings: Rapid regular rate Respiratory: no rales, rhonchi, tachypneic, wheezes Gastrointestinal: soft, non-tender, non-distended, no hepatomegaly, no splenomegaly, no bruit Extremities: 1+ LE edema Skin: no lesions, no rashes Neurological: cranial nerve grossly intact, no focal deficits Musculoskeletal: generalized weakness Psychiatric: oriented to person, lethargic Hosp A/P (1) HCAP (healthcare-associated pneumonia) Code(s): J18.9 - PNEUMONIA, UNSPECIFIED ORGANISM Status: Acute (2) Hypoalbuminemia Code(s): E88.09 - OTH DISORDERS OF PLASMA-PROTEIN METABOLISM, NEC Status: Chronic (3) Pulmonary embolism Code(s): I26.99 - OTHER PULMONARY EMBOLISM WITHOUT ACUTE COR PULMONALE Status : Chronic (4) Severe sepsis Code(s): A41.9 - SEPSIS, UNSPECIFIED ORGANISM; R65.20 - SEVERE SEPSIS WITHOUT SEPTIC SHOCK Status: Resolved (5) Acute hyponatremia Code(s): E87.1 - HYPO-OSMOLALITY AND HYPONATREMIA Status: Resolved (6) Acute respiratory failure with hypoxia Code(s): J96.01 - ACUTE RESPIRATORY FAILURE WITH HYPOXIA Status: Acute (7) Elevated troponin Code(s): R74.8 - ABNORMAL LEVELS OF OTHER SERUM ENZYMES Status: Resolved (8) Leukopenia Code(s): D72.819 - DECREASED WHITE BLOOD CELL COUNT, UNSPECIFIED Status: Chronic (9) Liver mass Code(s): R16.0 - HEPATOMEGALY, NOT ELSEWHERE CLASSIFIED Status: Chronic (10) Moderate protein-calorie malnutrition Code(s): E44.0 - MODERATE PROTEIN-CALORIE MALNUTRITION Status: Chronic (11) Pleural effusion Code(s): J90 - PLEURAL EFFUSION, NOT ELSEWHERE CLASSIFIED Status: Chronic (12) Sepsis Code(s): A41.9 - SEPSIS, UNSPECIFIED ORGANISM Status: Resolved (13) Tachycardia Code(s): R00.0 - TACHYCARDIA, UNSPECIFIED Status: Resolved (14) Thrombocytopenia Code(s): D69.6 - THROMBOCYTOPENIA, UNSPECIFIED Status: Chronic (15) Type [address] elevation Code(s): I21.A1 - MYOCARDIAL INFARCTION TYPE 2 Status: Resolved (16) Anxiety Code(s): F41.9 - ANXIETY DISORDER, UNSPECIFIED Status: Chronic (17) History of lung cancer Code(s): Z85.118 - PERSONAL HISTORY OF MALIGNANT NEOPLASM OF BRONCHUS AND LUNG Status: Chronic (18) Malignant pleural effusion Code(s): J91.0 - MALIGNANT PLEURAL EFFUSION Status: Chronic (19) Metastatic lung cancer (metastasis from lung to other site) Code(s): C34.90 - MALIGNANT NEOPLASM OF UNSP PART OF UNSP BRONCHUS OR LUNG Status: Chronic Qualifiers: Laterality: left Qualified Code(s): C34.92 - Malignant neoplasm of unspecified part of left bronchus or lung (20) Palpitations Code(s): R00.2 - PALPITATIONS Status: Chronic - Plan Plan: Medical unit Hospice consultation, recommendations patient Start Fentanyl patch for pain control ABX to be stopped as IV has gone bad and family doesnt want her to have anymore pain or suffering Palliative care consultation, recommendations patient oncology consultation, recommendations patient pulmonology consultation, recommendations appreciated ID consultation, recommendations appreciated Cultures have been negative to date Thrombocytopenia worse, likely early DIC Pleurx catheter being drained every other day, management per pulm CXR reviewed vomiting, symptomatic medications as needed poor oral intake continue home medications as able pain control breathing treatments as needed Short and long-term prognosis is guarded, recommend hospice.
--- NOTE | 2019-06-23 15:57 | PRG ---
DATE OF SERVICE: 06/23/2019 SERVICE: Pulmonary Medicine. INTERVAL HISTORY: The patient is doing okay from Respiratory standpoint. She had significant agitation, was pulling on her medical equipment. She was given a dose of Ativan and a fentanyl patch was initiated. With this, she is much more comfortable. The patient's family has decided to transition over to comfort care only and will be pursuing hospice into the outpatient setting. PHYSICAL EXAMINATION: VITAL SIGNS: Afebrile, pulse 89, blood pressure 134/79, respirations 26, saturation 99% on 45% high-flow nasal cannula. HEENT: Normocephalic and atraumatic. Sclerae white. Conjunctivae pink. Oral mucosa is moist without lesions. LUNGS: Decent air entry. No prolonged expiratory phase is present. Rhonchi are present, but do not clear with cough. HEART: Normal rate and regular. ABDOMEN: Soft, nontender, nondistended. Bowel sounds are positive. MUSCULOSKELETAL: No cyanosis or clubbing. There is no pitting in the bilateral lower extremities. NEUROLOGIC: Grossly nonfocal. LABORATORY DATA: WBC 27.2, hemoglobin 12.5, platelets 61,000. Sodium 130. Basic metabolic profile is otherwise unremarkable. Blood cultures x2, urine culture, and respiratory virus panel are all unremarkable. ASSESSMENT: 1. Acute on chronic hypoxic respiratory failure. 2. Lung cancer, widely metastatic. 3. Acute pulmonary embolism. 4. Malignant effusion on the left, status post PleurX catheter placement. DISCUSSION AND PLAN: The patient will be transitioned over to hospice, most likely within 24 hours. I will give her a laboratory and study holiday tomorrow morning. Pulmonary will continue to follow along while she remains in-house. Dr. Mijares will assume coverage in the morning. Job ID: [id number] [facility]
[2019-06-24 07:47] VITALS: BP 152/98; TEMP 98.1
--- NOTE | 2019-06-24 08:33 | PDOC.MOPN ---
Interval History: Pt on high-flow NC, awake but not responsive to questions. Does not speak one word. I spoke to family member at bedside. Plan for home hospice today. - Vital Signs Vital Signs: Vital Signs (12 hours) Temp Pulse Resp BP Pulse Ox 06/24/19 07:46 98.1 F 108 H 18 152/98 H 96 06/24/19 06:48 95 06/24/19 06:40 95 24 H 95 06/24/19 00:17 98 Weight Admit Weight 130 lb 15.273 oz Weight 133 lb 13.129 oz Most Recent Monitor Data Heart Rate from ECG 80 NIBP 146/82 NIBP BP-Mean 83 Respiration from ECG 19 SpO2 98 - Physical Exam General: No acute distress Lungs: Other (high-flow nasal canula) Abdomen: Soft Extremities: Other (LE edema) Psych/Mental Status: Other (flat affect, depressed) - Labs Result Diagrams: 06/23/19 08:37 06/23/19 08:37 Lab results: Laboratory Results - last 24 hr 06/23/19 08:37: WBC 27.2 H, RBC 4.56, Hgb 12.5, Hct 38.0, MCV 83.3, MCH 27.5, MCHC 33.0, RDW 14.2, Plt Count 61 L, MPV 11.4 H, Neutrophils % (Manual) 96 H, Band Neuts % (Manual) 1 L, Lymphocytes % (Manual) 3 L, Plt Morphology Comment Appears Decreased L 06/23/19 08:37: Sodium 130 L, Potassium 3.9, Chloride 96 L, Carbon Dioxide 26, Anion Gap 12, BUN 24 H, Creatinine 0.53 L, Estimated GFR (MDRD) Greater than 90 , Glucose 126 H, Calcium 7.9 A/P - Problem (1) HCAP (healthcare-associated pneumonia) Current Visit: Yes Code(s): J18.9 - PNEUMONIA, UNSPECIFIED ORGANISM Status: Acute (2) Pulmonary embolism Current Visit: Yes Code(s): I26.99 - OTHER PULMONARY EMBOLISM WITHOUT ACUTE COR PULMONALE Status: Chronic (3) Malignant pleural effusion Current Visit: No Code(s): J91.0 - MALIGNANT PLEURAL EFFUSION Status: Chronic (4) Metastatic lung cancer (metastasis from lung to other site) Current Visit: No Code(s): C34.90 - MALIGNANT NEOPLASM OF UNSP PART OF UNSP BRONCHUS OR LUNG Status: Chronic Qualifiers: Laterality: left Qualified Code(s): C34.92 - Malignant neoplasm of unspecified part of left bronchus or lung - Plan Plan: Home hospice today Cont fentanyl patch, ativan
[2019-06-24] MEDS ORDERED: methylPREDNISolone Sod Succ/PF 125 MG/2 ML VIAL IVP SCH (09:00)
--- NOTE | 2019-06-24 09:36 | PRG ---
DATE OF SERVICE: 06/24/2019 SUBJECTIVE: The patient would not wake up for me this morning, but appeared to be sleeping comfortably. Her friend was in the room saying that the family planned on taking her home on hospice. OBJECTIVE: VITAL SIGNS: Temperature 98.1, pulse 108, respirations 18, O2 saturation 96%, and blood pressure 152/98. HEENT: Clear. NECK: No adenopathy or JVD. LUNGS: Diminished breath sounds at the left base, right side clear. CARDIAC: S1 and S2. Regular. ABDOMEN: Soft. EXTREMITIES: No edema except in the feet. ASSESSMENT: The patient has end-stage, stage IV lung cancer that has not responded to intervention. She has continued failure to thrive. RECOMMENDATIONS: I would fully support full DNR and hospice care. I do not see anything that is going to turn the situation around for her. Job ID: [id number]
[2019-06-24] MEDS: Escitalopram Oxalate 20 mg Tablet PO SCH (09:48)
[2019-06-24] MEDS: Ivabradine 5 MG TAB PO SCH (09:48)
[2019-06-24] MEDS: Famotidine 20 MG TAB PO SCH (09:48)
[2019-06-24] MEDS: Apixaban 5 MG TAB PO SCH (09:48)
[2019-06-24] MEDS ORDERED: Morphine 4 MG/ML VIAL IM SCH (10:00)
[2019-06-24 12:37] VITALS: BMI 21.6
[2019-06-24] MEDS ORDERED: Morphine 4 MG/ML VIAL IM PRN (14:12)
[2019-06-24] MEDS ORDERED: Lorazepam 2 MG/ML VIAL IM PRN (14:12)
[2019-06-24] MEDS: ALPRAZolam 0.25 MG TAB PO PRN (16:25)
[2019-06-24] MEDS ORDERED: Morphine 4 MG/ML VIAL SLOW IVP PRN (17:37)
--- NOTE | 2019-06-24 17:59 | PDOC.HOSPP ---
- Subjective Subjective: Seen and examined Clinically worse. Patient is in the process of dying. She is only speaking in [place] now her late [place] tongue and saying one word, "pain" per family. We are transitioning to general inpatient hospice. Comfort care only. Morphine, Ativan, and fentanyl patch adjusted. Long conversation was had with the patient's family and hospice nurse. All questions answered in detail. Patient will pass in acute care hospital under general inpatient hospice. - Objective Vital Signs & Weight: Vital Signs (12 hours) Temp Pulse Resp BP Pulse Ox 06/24/19 10:52 92 24 H 94 L 06/24/19 09:00 96 06/24/19 07:46 98.1 F 108 H 18 152/98 H 96 06/24/19 06:48 95 06/24/19 06:40 95 24 H 95 Weight Admit Weight 130 lb 15.273 oz Weight 133 lb 13.129 oz Most Recent Monitor Data Heart Rate from ECG 80 NIBP 146/82 NIBP BP-Mean 83 Respiration from ECG 19 SpO2 98 Result Diagrams: 06/23/19 08:37 06/23/19 08:37 Hospitalist ROS - Review of Systems ROS unobtainable: due to mental status - Medication Medications: Active Medications Generic Name Dose Route Start Last Admin Trade Name Freq PRN Reason Stop Dose Admin Acetaminophen 1,000 mg 06/10/19 20:57 06/11/19 01:55 Tylenol PO 1,000 mg Q6H PRN Administration Mild Pain (1-3) Albuterol/Ipratropium 3 ml 06/11/19 07:28 06/21/19 06:23 Duoneb NEB 3 ml [id number] PRN Administration SOB &/or Wheezing Albuterol/Ipratropium 3 ml 06/22/19 15:00 06/24/19 14:48 Duoneb NEB Not Given [id number] FARAZ Alprazolam 0.125 mg 06/19/19 08:38 06/24/19 16:25 Xanax PO 0.125 mg Q8H PRN Administration Anxiety Apixaban 5 mg 06/21/19 09:00 06/24/19 09:48 Eliquis PO Not Given BID FARAZ Escitalopram Oxalate 20 mg 06/19/19 09:00 06/24/19 09:48 Lexapro PO Not Given DAILY FARAZ Famotidine 20 mg 06/13/19 21:00 06/24/19 09:48 Pepcid PO Not Given Q12HR FARAZ Fentanyl 25 mcg 06/24/19 10:15 06/24/19 11:04 Duragesic TD 25 mcg Q3D FARAZ Administration Ivabradine 5 mg 06/10/19 21:00 06/24/19 09:48 Corlanor PO Not Given BID FARAZ Melatonin 3 mg 06/20/19 09:55 06/21/19 22:16 Melatonin PO 3 mg HS PRN Administration Insomnia Morphine Sulfate 4 mg 06/24/19 14:12 06/24/19 14:25 Morphine IM 4 mg Q4H PRN Administration Moderate to Severe Pain (6-10) Ondansetron HCl 4 mg 06/10/19 20:57 06/21/19 12:29 Zofran Odt PO 4 mg Q6H PRN Administration Nausea/Vomiting - Exam General Appearance: ill appearing Eye: anicteric sclera ENT: normocephalic atraumatic, dry oral mucosa Neck: supple, no lymphadenopathy Heart: no murmur, no gallops, no rubs Heart - other findings: Rapid regular rate Respiratory: rhonchi, tachypneic, wheezes Extremities: 1+ LE edema Skin: no lesions, no rashes Neurological: cranial nerve grossly intact, no focal deficits Musculoskeletal: generalized weakness Psychiatric: not oriented Hosp A/P (1) HCAP (healthcare-associated pneumonia) Code(s): J18.9 - PNEUMONIA, UNSPECIFIED ORGANISM Status: Acute (2) Hypoalbuminemia Code(s): E88.09 - OTH DISORDERS OF PLASMA-PROTEIN METABOLISM, NEC Status: Chronic (3) Pulmonary embolism Code(s): I26.99 - OTHER PULMONARY EMBOLISM WITHOUT ACUTE COR PULMONALE Status : Chronic (4) Severe sepsis Code(s): A41.9 - SEPSIS, UNSPECIFIED ORGANISM; R65.20 - SEVERE SEPSIS WITHOUT SEPTIC SHOCK Status: Resolved (5) Acute hyponatremia Code(s): E87.1 - HYPO-OSMOLALITY AND HYPONATREMIA Status: Resolved (6) Acute respiratory failure with hypoxia Code(s): J96.01 - ACUTE RESPIRATORY FAILURE WITH HYPOXIA Status: Acute (7) Elevated troponin Code(s): R74.8 - ABNORMAL LEVELS OF OTHER SERUM ENZYMES Status: Resolved (8) Leukopenia Code(s): D72.819 - DECREASED WHITE BLOOD CELL COUNT, UNSPECIFIED Status: Chronic (9) Liver mass Code(s): R16.0 - HEPATOMEGALY, NOT ELSEWHERE CLASSIFIED Status: Chronic (10) Moderate protein-calorie malnutrition Code(s): E44.0 - MODERATE PROTEIN-CALORIE MALNUTRITION Status: Chronic (11) Pleural effusion Code(s): J90 - PLEURAL EFFUSION, NOT ELSEWHERE CLASSIFIED Status: Chronic (12) Sepsis Code(s): A41.9 - SEPSIS, UNSPECIFIED ORGANISM Status: Resolved (13) Tachycardia Code(s): R00.0 - TACHYCARDIA, UNSPECIFIED Status: Resolved (14) Thrombocytopenia Code(s): D69.6 - THROMBOCYTOPENIA, UNSPECIFIED Status: Chronic (15) Type [address] elevation Code(s): I21.A1 - MYOCARDIAL INFARCTION TYPE 2 Status: Resolved (16) Anxiety Code(s): F41.9 - ANXIETY DISORDER, UNSPECIFIED Status: Chronic (17) History of lung cancer Code(s): Z85.118 - PERSONAL HISTORY OF MALIGNANT NEOPLASM OF BRONCHUS AND LUNG Status: Chronic (18) Malignant pleural effusion Code(s): J91.0 - MALIGNANT PLEURAL EFFUSION Status: Chronic (19) Metastatic lung cancer (metastasis from lung to other site) Code(s): C34.90 - MALIGNANT NEOPLASM OF UNSP PART OF UNSP BRONCHUS OR LUNG Status: Chronic Qualifiers: Laterality: left Qualified Code(s): C34.92 - Malignant neoplasm of unspecified part of left bronchus or lung (20) Palpitations Code(s): R00.2 - PALPITATIONS Status: Chronic - Plan Plan: General inpatient hospice IV morphine IV ativan IV versed Increase Fentanyl patch for pain control Hospice consultation, recommendations patient Palliative care consultation, recommendations patient Comfort care only
[2019-06-24] MEDS ORDERED: Midazolam HCl 2 mg/2 ml Vial SLOW IVP PRN (18:01)
--- NOTE | 2019-06-25 13:39 | DIS ---
DATE OF ADMISSION: 06/10/2019 DATE OF DISCHARGE: 06/24/2019 REASON FOR HOSPITALIZATION: Shortness of breath. SIGNIFICANT FINDINGS: The patient was found to have terminal lung cancer with malignant effusion and pneumonia. PROCEDURES PERFORMED/TREATMENTS RENDERED: The patient had maximum medical therapy including treatment by specialist in Oncology, Pulmonology, Infectious Disease, Palliative Care. The patient had all appropriate labs and imaging-please see full reports for details. Unfortunately, the patient with terminal lung cancer could not be saved. CONDITION ON DISCHARGE: Stable. SPECIFIC INSTRUCTIONS FOR THE PATIENT/FAMILY: The patient recommended transfer to [facility] of family's choosing for further arrangements on burial versus cremation. DISCHARGE MEDICATIONS: Not applicable. HOSPITAL COURSE: Ms. Barrientos is a pleasant 64-year-old female with past medical history of stage IV lung cancer, who has been on immunotherapy in the past. The patient did initially have a good response to immunotherapy and over the treatment course, peripheral lesions did seem to decrease in size. Unfortunately, lung lesions did continue to grow and become more aggressive. The patient with a PleurX catheter for malignant effusion was drained regularly per Pulmonology. Please see full consultation notes and progress notes from all specialists including Pulmonology, Oncology, and Infectious Disease specialist for all details. The patient was also seen and evaluated by Palliative Care, and the patient and family's wishes were that she would not be intubated and not resuscitated. The patient and family understanding the terminal nature of her condition. Unfortunately, despite maximum medical therapy, the patient's clinical condition continued to deteriorate. Her oxygen levels continued to escalate and she required high-flow nasal cannula at ever increasing pressures. Despite this, the patient's oxygenation continued to decrease. The patient was started on all appropriate antibiotic therapy and despite antibiotic therapy, the patient did not improve. The patient was not spiking high fevers. The patient was unfortunately unable to recover from severe stage IV lung cancer, and the patient and family pursued less aggressive measures. Palliative care and hospice were introduced and the patient was transitions to general inpatient hospice care. I continued to coordinate the patient's care under general inpatient hospice and the patient was alleviated from pain and suffering with a combination of IV medication and transdermal fentanyl. The patient succumbed from natural causes and the natural progression of lung cancer in the evening of 06/24/2019. Greater than 50 minutes spent coordinating care and discharge process for this patient. Job ID: [id number]
== END 2019-06-24 18:49 | disposition hospice, inpatient (51) | DRG 871 ==
LOC: ERS 16:51 → CCU 18:50 → IMCU/EMU 06-14 15:24 → T4-A 06-20 12:42
PROVIDERS: ADMIT Family Medicine; ATTEND Family Medicine
PROC: 5A09457 Assistance with Respiratory Ventilation, 24-96 Consecutive Hours, Continuous Positive Airway Pressure (ICD-10-PCS; principal; 2019-06-10)
DX: A41.9 Sepsis, unspecified organism (principal); I26.99 Other pulmonary embolism without acute cor pulmonale; I21.A1 Myocardial infarction type 2; J96.22 Acute and chronic respiratory failure with hypercapnia; J18.9 Pneumonia, unspecified organism; C34.12 Malignant neoplasm of upper lobe, left bronchus or lung; E87.1 Hypo-osmolality and hyponatremia; J91.0 Malignant pleural effusion; E44.0 Moderate protein-calorie malnutrition; C79.31 Secondary malignant neoplasm of brain; C79.51 Secondary malignant neoplasm of bone; R65.20 Severe sepsis without septic shock; R16.0 Hepatomegaly, not elsewhere classified; I10 Essential (primary) hypertension; Z66 Do not resuscitate; Z51.5 Encounter for palliative care; F41.9 Anxiety disorder, unspecified; E78.5 Hyperlipidemia, unspecified; F32.9 Major depressive disorder, single episode, unspecified; R53.81 Other malaise; Z88.0 Allergy status to penicillin; Z88.2 Allergy status to sulfonamides; Z87.891 Personal history of nicotine dependence; Z79.899 Other long term (current) drug therapy; Z85.828 Personal history of other malignant neoplasm of skin; Z88.8 Allergy status to other drugs, medicaments and biological substances; Z68.21 Body mass index [BMI] 21.0-21.9, adult
CPT/HCPCS: 36415; 71045; 71275; 80048; 80053; 80202; 81003; 82533; 82550; 82553; 82805; 83605; 83880; 84484; 85007; 85025; 85027; 87040; 87086; 87633; 93005; 93306; 93970; 94640; 94660; 94760; 96365; 96367; 96372; 96375; J0692; J1450; J1650; J1940; J1956; J2060; J2270; J2543; J2920; J2930; J3370; J3480; J3490; J7050; J7620; P9047; Q0162; Q9966; S0028

== ENCOUNTER 2019-06-24 19:03 | Inpatient (IN) | payer OTHER ==
[2019-06-24 20:22] VITALS: BP 145/69; TEMP 97.5
[2019-06-24] MEDS ORDERED: Lorazepam 1 MG TAB PO PRN ×2 (21:09)
[2019-06-24] MEDS ORDERED: Hyoscyamine Sulfate SL 0.125 mg Tablet SL PRN (21:09)
[2019-06-24] MEDS ORDERED: ALPRAZolam 0.25 MG TAB PO PRN (21:09)
[2019-06-24] MEDS ORDERED: Zolpidem Tartrate 5 MG TAB PO PRN (21:09)
[2019-06-24] MEDS ORDERED: Loperamide HCl 2 MG CAP PO PRN (21:09)
[2019-06-24] MEDS ORDERED: Morphine IR Tab 15 MG TAB PO PRN (21:09)
[2019-06-24] MEDS ORDERED: Haloperidol Lactate 5 MG/ML VIAL SLOW IVP PRN (21:09)
[2019-06-24] MEDS ORDERED: Scopolamine 1.5 mg/72 hour Patch TOP PRN ×2 (21:09)
[2019-06-24] MEDS ORDERED: diphenhydrAMINE 25 MG CAP PO PRN (21:09)
[2019-06-24] MEDS ORDERED: Promethazine HCl 25 MG SUPP PR PRN (21:09)
[2019-06-24] MEDS ORDERED: Lorazepam 2 MG/ML VIAL SLOW IVP PRN ×2 (21:09)
[2019-06-24] MEDS ORDERED: chlorproMAZINE HCl 25 MG in Sodium Chloride 0.9% 50 ML IVPB PRN (21:09)
[2019-06-24] MEDS ORDERED: diphenhydrAMINE 50 MG/ML VIAL IVP PRN (21:09)
[2019-06-24] MEDS ORDERED: Acetaminophen 325 MG TAB PO PRN (21:09)
[2019-06-24] MEDS ORDERED: Milk Of Magnesia 30 ML UDCUP PO PRN (21:09)
[2019-06-24] MEDS ORDERED: Ondansetron ODT 4 MG TAB PO PRN (21:09)
[2019-06-24] MEDS ORDERED: Senokot 8.6 MG TAB PO PRN (21:09)
[2019-06-24] MEDS ORDERED: Ondansetron PF 4 MG/2 ML Vial IVP PRN (21:09)
[2019-06-24] MEDS ORDERED: chlorproMAZINE HCl 50 MG/2 ML AMP IM PRN ×2 (21:09)
[2019-06-24] MEDS ORDERED: Acetaminophen 650 MG Suppository PR PRN (21:09)
[2019-06-24] MEDS ORDERED: Morphine 10 MG/0.5 ML ORAL SYRINGE SL PRN (21:09)
[2019-06-24] MEDS ORDERED: Morphine 4 MG/ML VIAL SLOW IVP PRN (21:12)
== END 2019-06-24 23:45 | disposition expired | DRG 951 ==
LOC: T4-A 19:03
PROVIDERS: ADMIT Internal Medicine; ATTEND Internal Medicine
DX: Z51.5 Encounter for palliative care (principal); A41.9 Sepsis, unspecified organism; R65.20 Severe sepsis without septic shock; J96.01 Acute respiratory failure with hypoxia; J18.9 Pneumonia, unspecified organism; I26.99 Other pulmonary embolism without acute cor pulmonale; C34.12 Malignant neoplasm of upper lobe, left bronchus or lung; E87.1 Hypo-osmolality and hyponatremia; J91.0 Malignant pleural effusion; I10 Essential (primary) hypertension; F41.9 Anxiety disorder, unspecified; E78.5 Hyperlipidemia, unspecified; Z98.890 Other specified postprocedural states; Z79.899 Other long term (current) drug therapy; Z88.0 Allergy status to penicillin; Z88.8 Allergy status to other drugs, medicaments and biological substances; Z88.2 Allergy status to sulfonamides; Z87.891 Personal history of nicotine dependence
CPT/HCPCS: 94760; J2270